=== PATIENT | female | born 1950 | race Hispanic/Latino ===

== ENCOUNTER 2018-11-08 12:44 | Inpatient (IN) | payer MEDICARE, OTHER ==
[~2018-11-08] VITALS: Ht 170.2 cm; Wt 72.6 kg
--- OUTSIDE RECORDS SUMMARY | 2018-11-08 12:48 | XMS REPORT ---
[facility] Address Unknown Phone Unavailable Care Team Providers Care Coiler Name Role Phone Unavailable Unavailable Payers Payer Name Policy Type Policy Number Effective Date Expiration Date Problems This patient has no known problems. Allergies, Adverse Reactions, Alerts Allergy Name Allergy Type Status Severity Reaction(s) Onset Date Inactive Date Treating Clinician Comments No Known Allergies DA Active U 2018-04-25 00:00:00 Medications This patient has no known medications. Results Test Description Test Time Test Comments Text Results Atomic Results Result Comments GLUBED 2018-05-13 17:09:00 GLUBED (test code=GLUBED) 101 mg/dL 74-106 Performed by certified plastics production machine operator at [facility] [id number] 12:19:00* Test Item Value Reference Range Comments GLUBED (test code=GLUBED) 82 mg/dL 74-106 Performed by certified plastics production machine operator at [facility] [id number] 05:58:00* Test Item Value Reference Range Comments GLUBED (test code=GLUBED) 113 mg/dL 74-106 Performed by certified plastics production machine operator at [facility] [id number] 21:52:00* Test Item Value Reference Range Comments GLUBED (test code=GLUBED) 156 mg/dL 74-106 Performed by certified plastics production machine operator at [facility] [id number] 17:20:00* Test Item Value Reference Range Comments GLUBED (test code=GLUBED) 159 mg/dL 74-106 Performed by certified plastics production machine operator at [facility] [id number] 11:54:00* Test Item Value Reference Range Comments GLUBED (test code=GLUBED) 98 mg/dL 74-106 Performed by certified plastics production machine operator at [facility] BASIC METABOLIC [id number] 08:32:00* Test Item Value Reference Range Comments SODIUM (test code=NA) 141 mmol/L 136-145 POTASSIUM (test code=K) 3.8 mmol/L 3.5-5.1 CHLORIDE (test code=CL) 102.0 mmol/L 98-107 CARBON DIOXIDE (test code=CO2) 34.0 mmol/L 21-32 ANION GAP (test code=GAP) 8.8 10-20 GLUCOSE (test code=GLU) 69 mg/dL 74-106 BLOOD UREA NITROGEN (test code=BUN) 11 mg/dL 7-18 GLOMERULAR FILTRATION RATE (test code=GFR) 16 mL/min >=60 Estimated GFR by using Modified MDRD formula.Chronic kidney disease is defined as either kidney damageor GFR <60 mL/min/1.73 m2 for >3 months. CREATININE (test code=CREAT) 3.00 mg/dL 0.55-1.02 Note change in reference range due to change in reagent. BUN/CREATININE RATIO (test code=BUN/CREA) 3.6 10-20 CALCIUM (test code=CA) 7.3 mg/dL 8.5-10.1 CBC W/AUTO [id number] 08:06:00* Test Item Value Reference Range Comments WHITE BLOOD CELL (test code=WBC) 5.9 K/mm3 4.5-12.5 RED BLOOD CELL (test code=RBC) 2.92 mill/mm3 3.7-5.2 HEMOGLOBIN (test code=HGB) 9.1 gram/dL 11.5-15.5 HEMATOCRIT (test code=HCT) 30.3 % 36.0-46.0 MEAN CELL VOLUME (test code=MCV) 103.8 fL 80-98 MEAN CELL HGB (test code=MCH) 31.2 picogram 27.0-33.0 MEAN CELL HGB CONCETRATION (test code=MCHC) 30.0 gram/dL 33.0-36.0 RED CELL DISTRIBUTION WIDTH (test code=RDW) 18.0 % 11.6-16.2 RED CELL DISTRIBUTION WIDTH SD (test code=RDW-SD) 66.1 fL 37.0-51.0 PLATELET COUNT (test code=PLT) 174 K/mm3 150-450 MEAN PLATELET VOLUME (test code=MPV) 11.5 fL 6.7-11.0 NEUTROPHIL % (test code=NT%) 67.3 % 39.0-69.0 IMMATURE GRANULOCYTE % (test code=IG%) 0.5 % 0.0-5.0 LYMPHOCYTE % (test code=LY%) 17.4 % 25.0-55.0 MONOCYTE % (test code=MO%) 11.1 % 0.0-10.0 EOSINOPHIL % (test code=EO%) 3.0 % 0.0-5.0 BASOPHIL % (test code=BA%) 0.7 % 0.0-1.0 NUCLEATED RBC % (test code=NRBC%) 0.0 % 0-0 NEUTROPHIL # (test code=NT#) 3.98 K/mm3 1.8-7.7 IMMATURE GRANULOCYTE # (test code=IG#) 0.03 x10 3/uL 0-0.03 LYMPHOCYTE # (test code=LY#) 1.03 K/mm3 1.0-5.0 MONOCYTE # (test code=MO#) 0.66 K/mm3 0-0.8 EOSINOPHIL # (test code=EO#) 0.18 K/mm3 0.0-0.5 BASOPHIL # (test code=BA#) 0.04 K/mm3 0.0-0.2 NUCLEATED RBC # (test code=NRBC#) 0.00 K/mm3 0.0-0.1 [id number] 06:44:00* Test Item Value Reference Range Comments GLUBED (test code=GLUBED) 69 mg/dL 74-106 Performed by certified plastics production machine operator at [facility] [id number] 21:18:00* Test Item Value Reference Range Comments GLUBED (test code=GLUBED) 87 mg/dL 74-106 Performed by certified plastics production machine operator at [facility] [id number] 12:09:00* Test Item Value Reference Range Comments GLUBED (test code=GLUBED) 75 mg/dL 74-106 Performed by certified plastics production machine operator at [facility] CBC W/AUTO [id number] 06:47:00* Test Item Value Reference Range Comments WHITE BLOOD CELL (test code=WBC) 7.8 K/mm3 4.5-12.5 RED BLOOD CELL (test code=RBC) 2.99 mill/mm3 3.7-5.2 HEMOGLOBIN (test code=HGB) 9.0 gram/dL 11.5-15.5 HEMATOCRIT (test code=HCT) 31.4 % 36.0-46.0 MEAN CELL VOLUME (test code=MCV) 105.0 fL 80-98 MEAN CELL HGB (test code=MCH) 30.1 picogram 27.0-33.0 MEAN CELL HGB CONCETRATION (test code=MCHC) 28.7 gram/dL 33.0-36.0 RED CELL DISTRIBUTION WIDTH (test code=RDW) 18.0 % 11.6-16.2 RED CELL DISTRIBUTION WIDTH SD (test code=RDW-SD) 66.5 fL 37.0-51.0 PLATELET COUNT (test code=PLT) 194 K/mm3 150-450 MEAN PLATELET VOLUME (test code=MPV) 11.9 fL 6.7-11.0 NEUTROPHIL % (test code=NT%) 73.2 % 39.0-69.0 IMMATURE GRANULOCYTE % (test code=IG%) 0.1 % 0.0-5.0 LYMPHOCYTE % (test code=LY%) 13.2 % 25.0-55.0 MONOCYTE % (test code=MO%) 10.9 % 0.0-10.0 EOSINOPHIL % (test code=EO%) 2.2 % 0.0-5.0 BASOPHIL % (test code=BA%) 0.4 % 0.0-1.0 NUCLEATED RBC % (test code=NRBC%) 0.0 % 0-0 NEUTROPHIL # (test code=NT#) 5.74 K/mm3 1.8-7.7 IMMATURE GRANULOCYTE # (test code=IG#) 0.01 x10 3/uL 0-0.03 LYMPHOCYTE # (test code=LY#) 1.03 K/mm3 1.0-5.0 MONOCYTE # (test code=MO#) 0.85 K/mm3 0-0.8 EOSINOPHIL # (test code=EO#) 0.17 K/mm3 0.0-0.5 BASOPHIL # (test code=BA#) 0.03 K/mm3 0.0-0.2 NUCLEATED RBC # (test code=NRBC#) 0.00 K/mm3 0.0-0.1 MANUAL DIFF REQUIRED (test code=MDIFF) NO, ONLY SCAN NEEDED DIFFERENTIAL [id number] 06:47:00* Test Item Value Reference Range Comments STAIN ACCEPTABILITY (test code=STN ACCEPTABLE) STAIN ACCEPTABLE POLYCHROMASIA (test code=POLC) 1+ HYPOCHROMIA (test code=HYPO) 1+ POIKILOCYTOSIS (test code=POIK) 1+ ANISOCYTOSIS (test code=ANISO) 1+ MACROCYTOSIS (test code=MACR) 1+ SPHEROCYTES (test code=SPH) 1+ PLATELET ESTIMATE (test code=PLTEST) ADEQUATE PLATELET MORPHOLOGY (test code=PLTMORPH) NORMAL BASIC METABOLIC [id number] 06:29:00* Test Item Value Reference Range Comments SODIUM (test code=NA) 141 mmol/L 136-145 POTASSIUM (test code=K) 3.8 mmol/L 3.5-5.1 CHLORIDE (test code=CL) 103.0 mmol/L 98-107 CARBON DIOXIDE (test code=CO2) 27.0 mmol/L 21-32 ANION GAP (test code=GAP) 14.8 10-20 GLUCOSE (test code=GLU) 85 mg/dL 74-106 BLOOD UREA NITROGEN (test code=BUN) 19 mg/dL 7-18 GLOMERULAR FILTRATION RATE (test code=GFR) 12 mL/min >=60 Estimated GFR by using Modified MDRD formula.Chronic kidney disease is defined as either kidney damageor GFR <60 mL/min/1.73 m2 for >3 months. CREATININE (test code=CREAT) 3.90 mg/dL 0.55-1.02 Note change in reference range due to change in reagent. BUN/CREATININE RATIO (test code=BUN/CREA) 4.9 10-20 CALCIUM (test code=CA) 7.4 mg/dL 8.5-10.1 BASIC METABOLIC [id number] 06:24:00* Test Item Value Reference Range Comments SODIUM (test code=NA) 141 mmol/L 136-145 POTASSIUM (test code=K) 3.8 mmol/L 3.5-5.1 CHLORIDE (test code=CL) 103.0 mmol/L 98-107 CARBON DIOXIDE (test code=CO2) mmol/L 21-32 ANION GAP (test code=GAP) 10-20 GLUCOSE (test code=GLU) mg/dL 74-106 BLOOD UREA NITROGEN (test code=BUN) mg/dL 7-18 GLOMERULAR FILTRATION RATE (test code=GFR) mL/min >=60 CREATININE (test code=CREAT) mg/dL 0.55-1.02 BUN/CREATININE RATIO (test code=BUN/CREA) 10-20 CALCIUM (test code=CA) mg/dL 8.5-10.1 PROTHROMBIN [id number] 06:12:00* Test Item Value Reference Range Comments PROTHROMBIN TIME PATIENT (test code=PTP) 12.4 seconds 9.0-14.0 INTERNATIONAL NORMAL RATIO (test code=INR) 1.0 0.8-1.2 The therapeutic range for oral anticoagulant therapy formost indications is an international normalized ratio (INR)of between 2.0 and 3.0. The recommended therapeutic INRrange for various clinical situations is listed below: Clinical Situation INR range Pulmonary e mbolism treatment (2.0-3.0)Venous thrombosis treatmentVenous thrombosis prophylaxis (high risk surgery)Prevention of systemic embolism from: Acute myocardial infarction Valvular heart disease Atrial fibrillation Mechanical prosthetic heart valves (2.5-3.5) IS PATIENT ON ANTICOAGULANTS? NTHROMBOPLASTIN TIME [id number] 06:12:00* Test Item Value Reference Range Comments THROMBOPLASTIN TIME PARTIAL (test code=PTT) 27.7 seconds 25.0-36.5 IS PATIENT ON ANTICOAGULANTS? NCBC W/AUTO [id number] 06:09:00* Test Item Value Reference Range Comments WHITE BLOOD CELL (test code=WBC) 7.8 K/mm3 4.5-12.5 RED BLOOD CELL (test code=RBC) 2.99 mill/mm3 3.7-5.2 HEMOGLOBIN (test code=HGB) 9.0 gram/dL 11.5-15.5 HEMATOCRIT (test code=HCT) 31.4 % 36.0-46.0 MEAN CELL VOLUME (test code=MCV) 105.0 fL 80-98 MEAN CELL HGB (test code=MCH) 30.1 picogram 27.0-33.0 MEAN CELL HGB CONCETRATION (test code=MCHC) 28.7 gram/dL 33.0-36.0 RED CELL DISTRIBUTION WIDTH (test code=RDW) 18.0 % 11.6-16.2 RED CELL DISTRIBUTION WIDTH SD (test code=RDW-SD) 66.5 fL 37.0-51.0 PLATELET COUNT (test code=PLT) 194 K/mm3 150-450 MEAN PLATELET VOLUME (test code=MPV) 11.9 fL 6.7-11.0 NEUTROPHIL % (test code=NT%) 73.2 % 39.0-69.0 IMMATURE GRANULOCYTE % (test code=IG%) 0.1 % 0.0-5.0 LYMPHOCYTE % (test code=LY%) 13.2 % 25.0-55.0 MONOCYTE % (test code=MO%) 10.9 % 0.0-10.0 EOSINOPHIL % (test code=EO%) 2.2 % 0.0-5.0 BASOPHIL % (test code=BA%) 0.4 % 0.0-1.0 NUCLEATED RBC % (test code=NRBC%) 0.0 % 0-0 NEUTROPHIL # (test code=NT#) 5.74 K/mm3 1.8-7.7 IMMATURE GRANULOCYTE # (test code=IG#) 0.01 x10 3/uL 0-0.03 LYMPHOCYTE # (test code=LY#) 1.03 K/mm3 1.0-5.0 MONOCYTE # (test code=MO#) 0.85 K/mm3 0-0.8 EOSINOPHIL # (test code=EO#) 0.17 K/mm3 0.0-0.5 BASOPHIL # (test code=BA#) 0.03 K/mm3 0.0-0.2 NUCLEATED RBC # (test code=NRBC#) 0.00 K/mm3 0.0-0.1 MANUAL DIFF REQUIRED (test code=MDIFF) NO, ONLY SCAN NEEDED DIFFERENTIAL [id number] 06:09:00* Test Item Value Reference Range Comments STAIN ACCEPTABILITY (test code=STN ACCEPTABLE) CABOT RINGS (test code=CAB) MORPHOLOGY COMMENT (test code=MOC) PLATELET ESTIMATE (test code=PLTEST) PLATELET MORPHOLOGY (test code=PLTMORPH) CBC W/AUTO [id number] 06:09:00* Test Item Value Reference Range Comments WHITE BLOOD CELL (test code=WBC) 7.8 K/mm3 4.5-12.5 RED BLOOD CELL (test code=RBC) 2.99 mill/mm3 3.7-5.2 HEMOGLOBIN (test code=HGB) 9.0 gram/dL 11.5-15.5 HEMATOCRIT (test code=HCT) 31.4 % 36.0-46.0 MEAN CELL VOLUME (test code=MCV) 105.0 fL 80-98 MEAN CELL HGB (test code=MCH) 30.1 picogram 27.0-33.0 MEAN CELL HGB CONCETRATION (test code=MCHC) 28.7 gram/dL 33.0-36.0 RED CELL DISTRIBUTION WIDTH (test code=RDW) 18.0 % 11.6-16.2 RED CELL DISTRIBUTION WIDTH SD (test code=RDW-SD) 66.5 fL 37.0-51.0 PLATELET COUNT (test code=PLT) 194 K/mm3 150-450 MEAN PLATELET VOLUME (test code=MPV) 11.9 fL 6.7-11.0 NEUTROPHIL % (test code=NT%) 73.2 % 39.0-69.0 IMMATURE GRANULOCYTE % (test code=IG%) 0.1 % 0.0-5.0 LYMPHOCYTE % (test code=LY%) 13.2 % 25.0-55.0 MONOCYTE % (test code=MO%) 10.9 % 0.0-10.0 EOSINOPHIL % (test code=EO%) 2.2 % 0.0-5.0 BASOPHIL % (test code=BA%) 0.4 % 0.0-1.0 NUCLEATED RBC % (test code=NRBC%) 0.0 % 0-0 NEUTROPHIL # (test code=NT#) 5.74 K/mm3 1.8-7.7 IMMATURE GRANULOCYTE # (test code=IG#) 0.01 x10 3/uL 0-0.03 LYMPHOCYTE # (test code=LY#) 1.03 K/mm3 1.0-5.0 MONOCYTE # (test code=MO#) 0.85 K/mm3 0-0.8 EOSINOPHIL # (test code=EO#) 0.17 K/mm3 0.0-0.5 BASOPHIL # (test code=BA#) 0.03 K/mm3 0.0-0.2 NUCLEATED RBC # (test code=NRBC#) 0.00 K/mm3 0.0-0.1 MANUAL DIFF REQUIRED (test code=MDIFF) NO, ONLY SCAN NEEDED DIFFERENTIAL [id number] 06:09:00* Test Item Value Reference Range Comments STAIN ACCEPTABILITY (test code=STN ACCEPTABLE) CABOT RINGS (test code=CAB) MORPHOLOGY COMMENT (test code=MOC) PLATELET ESTIMATE (test code=PLTEST) PLATELET MORPHOLOGY (test code=PLTMORPH) CBC W/AUTO [id number] 06:09:00* Test Item Value Reference Range Comments WHITE BLOOD CELL (test code=WBC) 7.8 K/mm3 4.5-12.5 RED BLOOD CELL (test code=RBC) 2.99 mill/mm3 3.7-5.2 HEMOGLOBIN (test code=HGB) 9.0 gram/dL 11.5-15.5 HEMATOCRIT (test code=HCT) 31.4 % 36.0-46.0 MEAN CELL VOLUME (test code=MCV) 105.0 fL 80-98 MEAN CELL HGB (test code=MCH) 30.1 picogram 27.0-33.0 MEAN CELL HGB CONCETRATION (test code=MCHC) 28.7 gram/dL 33.0-36.0 RED CELL DISTRIBUTION WIDTH (test code=RDW) 18.0 % 11.6-16.2 RED CELL DISTRIBUTION WIDTH SD (test code=RDW-SD) 66.5 fL 37.0-51.0 PLATELET COUNT (test code=PLT) 194 K/mm3 150-450 MEAN PLATELET VOLUME (test code=MPV) 11.9 fL 6.7-11.0 NEUTROPHIL % (test code=NT%) 73.2 % 39.0-69.0 IMMATURE GRANULOCYTE % (test code=IG%) 0.1 % 0.0-5.0 LYMPHOCYTE % (test code=LY%) 13.2 % 25.0-55.0 MONOCYTE % (test code=MO%) 10.9 % 0.0-10.0 EOSINOPHIL % (test code=EO%) 2.2 % 0.0-5.0 BASOPHIL % (test code=BA%) 0.4 % 0.0-1.0 NUCLEATED RBC % (test code=NRBC%) 0.0 % 0-0 NEUTROPHIL # (test code=NT#) 5.74 K/mm3 1.8-7.7 IMMATURE GRANULOCYTE # (test code=IG#) 0.01 x10 3/uL 0-0.03 LYMPHOCYTE # (test code=LY#) 1.03 K/mm3 1.0-5.0 MONOCYTE # (test code=MO#) 0.85 K/mm3 0-0.8 EOSINOPHIL # (test code=EO#) 0.17 K/mm3 0.0-0.5 BASOPHIL # (test code=BA#) 0.03 K/mm3 0.0-0.2 NUCLEATED RBC # (test code=NRBC#) 0.00 K/mm3 0.0-0.1 MANUAL DIFF REQUIRED (test code=MDIFF) NO, ONLY SCAN NEEDED DIFFERENTIAL [id number] 06:09:00* Test Item Value Reference Range Comments STAIN ACCEPTABILITY (test code=STN ACCEPTABLE) MORPHOLOGY COMMENT (test code=MOC) PLATELET ESTIMATE (test code=PLTEST) PLATELET MORPHOLOGY (test code=PLTMORPH) CBC W/AUTO [id number] 06:09:00* Test Item Value Reference Range Comments WHITE BLOOD CELL (test code=WBC) 7.8 K/mm3 4.5-12.5 RED BLOOD CELL (test code=RBC) 2.99 mill/mm3 3.7-5.2 HEMOGLOBIN (test code=HGB) 9.0 gram/dL 11.5-15.5 HEMATOCRIT (test code=HCT) 31.4 % 36.0-46.0 MEAN CELL VOLUME (test code=MCV) 105.0 fL 80-98 MEAN CELL HGB (test code=MCH) 30.1 picogram 27.0-33.0 MEAN CELL HGB CONCETRATION (test code=MCHC) 28.7 gram/dL 33.0-36.0 RED CELL DISTRIBUTION WIDTH (test code=RDW) 18.0 % 11.6-16.2 RED CELL DISTRIBUTION WIDTH SD (test code=RDW-SD) 66.5 fL 37.0-51.0 PLATELET COUNT (test code=PLT) 194 K/mm3 150-450 MEAN PLATELET VOLUME (test code=MPV) 11.9 fL 6.7-11.0 NEUTROPHIL % (test code=NT%) 73.2 % 39.0-69.0 IMMATURE GRANULOCYTE % (test code=IG%) 0.1 % 0.0-5.0 LYMPHOCYTE % (test code=LY%) 13.2 % 25.0-55.0 MONOCYTE % (test code=MO%) 10.9 % 0.0-10.0 EOSINOPHIL % (test code=EO%) 2.2 % 0.0-5.0 BASOPHIL % (test code=BA%) 0.4 % 0.0-1.0 NUCLEATED RBC % (test code=NRBC%) 0.0 % 0-0 NEUTROPHIL # (test code=NT#) 5.74 K/mm3 1.8-7.7 IMMATURE GRANULOCYTE # (test code=IG#) 0.01 x10 3/uL 0-0.03 LYMPHOCYTE # (test code=LY#) 1.03 K/mm3 1.0-5.0 MONOCYTE # (test code=MO#) 0.85 K/mm3 0-0.8 EOSINOPHIL # (test code=EO#) 0.17 K/mm3 0.0-0.5 BASOPHIL # (test code=BA#) 0.03 K/mm3 0.0-0.2 NUCLEATED RBC # (test code=NRBC#) 0.00 K/mm3 0.0-0.1 MANUAL DIFF REQUIRED (test code=MDIFF) NO, ONLY SCAN NEEDED DIFFERENTIAL [id number] 06:09:00* Test Item Value Reference Range Comments STAIN ACCEPTABILITY (test code=STN ACCEPTABLE) CABOT RINGS (test code=CAB) MORPHOLOGY COMMENT (test code=MOC) PLATELET ESTIMATE (test code=PLTEST) PLATELET MORPHOLOGY (test code=PLTMORPH) [id number] 05:59:00* Test Item Value Reference Range Comments GLUBED (test code=GLUBED) 88 mg/dL 74-106 Performed by certified plastics production machine operator at [facility] [id number] 21:22:00* Test Item Value Reference Range Comments GLUBED (test code=GLUBED) 108 mg/dL 74-106 Performed by certified plastics production machine operator at [facility] [id number] 16:43:00* Test Item Value Reference Range Comments GLUBED (test code=GLUBED) 101 mg/dL 74-106 Performed by certified plastics production machine operator at [facility] [id number] 13:24:00* Test Item Value Reference Range Comments GLUBED (test code=GLUBED) 100 mg/dL 74-106 Performed by certified plastics production machine operator at [facility] [id number] 05:39:00* Test Item Value Reference Range Comments GLUBED (test code=GLUBED) 69 mg/dL 74-106 Performed by certified plastics production machine operator at [facility] [id number] 21:23:00* Test Item Value Reference Range Comments GLUBED (test code=GLUBED) 80 mg/dL 74-106 Performed by certified plastics production machine operator at [facility] [id number] 18:18:00* Test Item Value Reference Range Comments GLUBED (test code=GLUBED) 110 mg/dL 74-106 Performed by certified plastics production machine operator at [facility] BASIC METABOLIC [id number] 08:12:00* Test Item Value Reference Range Comments SODIUM (test code=NA) 140 mmol/L 136-145 POTASSIUM (test code=K) 4.3 mmol/L 3.5-5.1 CHLORIDE (test code=CL) 106.0 mmol/L 98-107 CARBON DIOXIDE (test code=CO2) 26.0 mmol/L 21-32 ANION GAP (test code=GAP) 12.3 10-20 GLUCOSE (test code=GLU) 88 mg/dL 74-106 BLOOD UREA NITROGEN (test code=BUN) 19 mg/dL 7-18 GLOMERULAR FILTRATION RATE (test code=GFR) 13 mL/min >=60 Estimated GFR by using Modified MDRD formula.Chronic kidney disease is defined as either kidney damageor GFR <60 mL/min/1.73 m2 for >3 months. CREATININE (test code=CREAT) 3.60 mg/dL 0.55-1.02 Note change in reference range due to change in reagent. BUN/CREATININE RATIO (test code=BUN/CREA) 5.3 10-20 CALCIUM (test code=CA) 7.7 mg/dL 8.5-10.1 BASIC METABOLIC [id number] 08:05:00* Test Item Value Reference Range Comments SODIUM (test code=NA) 140 mmol/L 136-145 POTASSIUM (test code=K) 4.3 mmol/L 3.5-5.1 CHLORIDE (test code=CL) 106.0 mmol/L 98-107 CARBON DIOXIDE (test code=CO2) mmol/L 21-32 ANION GAP (test code=GAP) 10-20 GLUCOSE (test code=GLU) mg/dL 74-106 BLOOD UREA NITROGEN (test code=BUN) mg/dL 7-18 GLOMERULAR FILTRATION RATE (test code=GFR) mL/min >=60 CREATININE (test code=CREAT) mg/dL 0.55-1.02 BUN/CREATININE RATIO (test code=BUN/CREA) 10-20 CALCIUM (test code=CA) mg/dL 8.5-10.1 CBC W/AUTO [id number] 07:30:00* Test Item Value Reference Range Comments WHITE BLOOD CELL (test code=WBC) 7.6 K/mm3 4.5-12.5 RED BLOOD CELL (test code=RBC) 2.78 mill/mm3 3.7-5.2 HEMOGLOBIN (test code=HGB) 8.7 gram/dL 11.5-15.5 HEMATOCRIT (test code=HCT) 29.3 % 36.0-46.0 MEAN CELL VOLUME (test code=MCV) 105.4 fL 80-98 MEAN CELL HGB (test code=MCH) 31.3 picogram 27.0-33.0 MEAN CELL HGB CONCETRATION (test code=MCHC) 29.7 gram/dL 33.0-36.0 RED CELL DISTRIBUTION WIDTH (test code=RDW) 17.8 % 11.6-16.2 RED CELL DISTRIBUTION WIDTH SD (test code=RDW-SD) 63.7 fL 37.0-51.0 PLATELET COUNT (test code=PLT) 164 K/mm3 150-450 MEAN PLATELET VOLUME (test code=MPV) 11.9 fL 6.7-11.0 NEUTROPHIL % (test code=NT%) 75.8 % 39.0-69.0 IMMATURE GRANULOCYTE % (test code=IG%) 0.4 % 0.0-5.0 LYMPHOCYTE % (test code=LY%) 11.8 % 25.0-55.0 MONOCYTE % (test code=MO%) 9.7 % 0.0-10.0 EOSINOPHIL % (test code=EO%) 1.8 % 0.0-5.0 BASOPHIL % (test code=BA%) 0.5 % 0.0-1.0 NUCLEATED RBC % (test code=NRBC%) 0.0 % 0-0 NEUTROPHIL # (test code=NT#) 5.78 K/mm3 1.8-7.7 IMMATURE GRANULOCYTE # (test code=IG#) 0.03 x10 3/uL 0-0.03 LYMPHOCYTE # (test code=LY#) 0.90 K/mm3 1.0-5.0 MONOCYTE # (test code=MO#) 0.74 K/mm3 0-0.8 EOSINOPHIL # (test code=EO#) 0.14 K/mm3 0.0-0.5 BASOPHIL # (test code=BA#) 0.04 K/mm3 0.0-0.2 NUCLEATED RBC # (test code=NRBC#) 0.00 K/mm3 0.0-0.1 MANUAL DIFF REQUIRED (test code=MDIFF) NO, ONLY SCAN NEEDED Previously reported result: NO Edited by: CRISTOPHER on 19:0718 DIFFERENTIAL [id number] 07:30:00* Test Item Value Reference Range Comments STAIN ACCEPTABILITY (test code=STN ACCEPTABLE) STAIN ACCEPTABLE POLYCHROMASIA (test code=POLC) 1+ POIKILOCYTOSIS (test code=POIK) 1+ ANISOCYTOSIS (test code=ANISO) 1+ MACROCYTOSIS (test code=MACR) 1+ SCHISTOCYTES (test code=JUAN MIGUEL) 1+ PLATELET ESTIMATE (test code=PLTEST) ADEQUATE PLATELET MORPHOLOGY (test code=PLTMORPH) NORMAL CBC W/AUTO [id number] 07:18:00* Test Item Value Reference Range Comments WHITE BLOOD CELL (test code=WBC) 7.6 K/mm3 4.5-12.5 RED BLOOD CELL (test code=RBC) 2.78 mill/mm3 3.7-5.2 HEMOGLOBIN (test code=HGB) 8.7 gram/dL 11.5-15.5 HEMATOCRIT (test code=HCT) 29.3 % 36.0-46.0 MEAN CELL VOLUME (test code=MCV) 105.4 fL 80-98 MEAN CELL HGB (test code=MCH) 31.3 picogram 27.0-33.0 MEAN CELL HGB CONCETRATION (test code=MCHC) 29.7 gram/dL 33.0-36.0 RED CELL DISTRIBUTION WIDTH (test code=RDW) 17.8 % 11.6-16.2 RED CELL DISTRIBUTION WIDTH SD (test code=RDW-SD) 63.7 fL 37.0-51.0 PLATELET COUNT (test code=PLT) 164 K/mm3 150-450 MEAN PLATELET VOLUME (test code=MPV) 11.9 fL 6.7-11.0 NEUTROPHIL % (test code=NT%) 75.8 % 39.0-69.0 IMMATURE GRANULOCYTE % (test code=IG%) 0.4 % 0.0-5.0 LYMPHOCYTE % (test code=LY%) 11.8 % 25.0-55.0 MONOCYTE % (test code=MO%) 9.7 % 0.0-10.0 EOSINOPHIL % (test code=EO%) 1.8 % 0.0-5.0 BASOPHIL % (test code=BA%) 0.5 % 0.0-1.0 NUCLEATED RBC % (test code=NRBC%) 0.0 % 0-0 NEUTROPHIL # (test code=NT#) 5.78 K/mm3 1.8-7.7 IMMATURE GRANULOCYTE # (test code=IG#) 0.03 x10 3/uL 0-0.03 LYMPHOCYTE # (test code=LY#) 0.90 K/mm3 1.0-5.0 MONOCYTE # (test code=MO#) 0.74 K/mm3 0-0.8 EOSINOPHIL # (test code=EO#) 0.14 K/mm3 0.0-0.5 BASOPHIL # (test code=BA#) 0.04 K/mm3 0.0-0.2 NUCLEATED RBC # (test code=NRBC#) 0.00 K/mm3 0.0-0.1 MANUAL DIFF REQUIRED (test code=MDIFF) NO, ONLY SCAN NEEDED Previously reported result: NO Edited by: [email or web address] on 05/09/18:0718 DIFFERENTIAL [id number] 07:18:00* Test Item Value Reference Range Comments STAIN ACCEPTABILITY (test code=STN ACCEPTABLE) CABOT RINGS (test code=CAB) MORPHOLOGY COMMENT (test code=MOC) PLATELET ESTIMATE (test code=PLTEST) PLATELET MORPHOLOGY (test code=PLTMORPH) CBC W/AUTO [id number] 07:18:00* Test Item Value Reference Range Comments WHITE BLOOD CELL (test code=WBC) 7.6 K/mm3 4.5-12.5 RED BLOOD CELL (test code=RBC) 2.78 mill/mm3 3.7-5.2 HEMOGLOBIN (test code=HGB) 8.7 gram/dL 11.5-15.5 HEMATOCRIT (test code=HCT) 29.3 % 36.0-46.0 MEAN CELL VOLUME (test code=MCV) 105.4 fL 80-98 MEAN CELL HGB (test code=MCH) 31.3 picogram 27.0-33.0 MEAN CELL HGB CONCETRATION (test code=MCHC) 29.7 gram/dL 33.0-36.0 RED CELL DISTRIBUTION WIDTH (test code=RDW) 17.8 % 11.6-16.2 RED CELL DISTRIBUTION WIDTH SD (test code=RDW-SD) 63.7 fL 37.0-51.0 PLATELET COUNT (test code=PLT) 164 K/mm3 150-450 MEAN PLATELET VOLUME (test code=MPV) 11.9 fL 6.7-11.0 NEUTROPHIL % (test code=NT%) 75.8 % 39.0-69.0 IMMATURE GRANULOCYTE % (test code=IG%) 0.4 % 0.0-5.0 LYMPHOCYTE % (test code=LY%) 11.8 % 25.0-55.0 MONOCYTE % (test code=MO%) 9.7 % 0.0-10.0 EOSINOPHIL % (test code=EO%) 1.8 % 0.0-5.0 BASOPHIL % (test code=BA%) 0.5 % 0.0-1.0 NUCLEATED RBC % (test code=NRBC%) 0.0 % 0-0 NEUTROPHIL # (test code=NT#) 5.78 K/mm3 1.8-7.7 IMMATURE GRANULOCYTE # (test code=IG#) 0.03 x10 3/uL 0-0.03 LYMPHOCYTE # (test code=LY#) 0.90 K/mm3 1.0-5.0 MONOCYTE # (test code=MO#) 0.74 K/mm3 0-0.8 EOSINOPHIL # (test code=EO#) 0.14 K/mm3 0.0-0.5 BASOPHIL # (test code=BA#) 0.04 K/mm3 0.0-0.2 NUCLEATED RBC # (test code=NRBC#) 0.00 K/mm3 0.0-0.1 MANUAL DIFF REQUIRED (test code=MDIFF) NO, ONLY SCAN NEEDED Previously reported result: NO Edited by: CRISTOPHER on 05/09/18:0718 DIFFERENTIAL [id number] 07:18:00* Test Item Value Reference Range Comments STAIN ACCEPTABILITY (test code=STN ACCEPTABLE) CABOT RINGS (test code=CAB) MORPHOLOGY COMMENT (test code=MOC) PLATELET ESTIMATE (test code=PLTEST) PLATELET MORPHOLOGY (test code=PLTMORPH) CBC W/AUTO [id number] 07:18:00* Test Item Value Reference Range Comments WHITE BLOOD CELL (test code=WBC) 7.6 K/mm3 4.5-12.5 RED BLOOD CELL (test code=RBC) 2.78 mill/mm3 3.7-5.2 HEMOGLOBIN (test code=HGB) 8.7 gram/dL 11.5-15.5 HEMATOCRIT (test code=HCT) 29.3 % 36.0-46.0 MEAN CELL VOLUME (test code=MCV) 105.4 fL 80-98 MEAN CELL HGB (test code=MCH) 31.3 picogram 27.0-33.0 MEAN CELL HGB CONCETRATION (test code=MCHC) 29.7 gram/dL 33.0-36.0 RED CELL DISTRIBUTION WIDTH (test code=RDW) 17.8 % 11.6-16.2 RED CELL DISTRIBUTION WIDTH SD (test code=RDW-SD) 63.7 fL 37.0-51.0 PLATELET COUNT (test code=PLT) 164 K/mm3 150-450 MEAN PLATELET VOLUME (test code=MPV) 11.9 fL 6.7-11.0 NEUTROPHIL % (test code=NT%) 75.8 % 39.0-69.0 IMMATURE GRANULOCYTE % (test code=IG%) 0.4 % 0.0-5.0 LYMPHOCYTE % (test code=LY%) 11.8 % 25.0-55.0 MONOCYTE % (test code=MO%) 9.7 % 0.0-10.0 EOSINOPHIL % (test code=EO%) 1.8 % 0.0-5.0 BASOPHIL % (test code=BA%) 0.5 % 0.0-1.0 NUCLEATED RBC % (test code=NRBC%) 0.0 % 0-0 NEUTROPHIL # (test code=NT#) 5.78 K/mm3 1.8-7.7 IMMATURE GRANULOCYTE # (test code=IG#) 0.03 x10 3/uL 0-0.03 LYMPHOCYTE # (test code=LY#) 0.90 K/mm3 1.0-5.0 MONOCYTE # (test code=MO#) 0.74 K/mm3 0-0.8 EOSINOPHIL # (test code=EO#) 0.14 K/mm3 0.0-0.5 BASOPHIL # (test code=BA#) 0.04 K/mm3 0.0-0.2 NUCLEATED RBC # (test code=NRBC#) 0.00 K/mm3 0.0-0.1 MANUAL DIFF REQUIRED (test code=MDIFF) NO, ONLY SCAN NEEDED Previously reported result: NO Edited by: CRISTOPHER on 05/09/18:0718 DIFFERENTIAL [id number] 07:18:00* Test Item Value Reference Range Comments STAIN ACCEPTABILITY (test code=STN ACCEPTABLE) MORPHOLOGY COMMENT (test code=MOC) PLATELET ESTIMATE (test code=PLTEST) PLATELET MORPHOLOGY (test code=PLTMORPH) CBC W/AUTO [id number] 07:18:00* Test Item Value Reference Range Comments WHITE BLOOD CELL (test code=WBC) 7.6 K/mm3 4.5-12.5 RED BLOOD CELL (test code=RBC) 2.78 mill/mm3 3.7-5.2 HEMOGLOBIN (test code=HGB) 8.7 gram/dL 11.5-15.5 HEMATOCRIT (test code=HCT) 29.3 % 36.0-46.0 MEAN CELL VOLUME (test code=MCV) 105.4 fL 80-98 MEAN CELL HGB (test code=MCH) 31.3 picogram 27.0-33.0 MEAN CELL HGB CONCETRATION (test code=MCHC) 29.7 gram/dL 33.0-36.0 RED CELL DISTRIBUTION WIDTH (test code=RDW) 17.8 % 11.6-16.2 RED CELL DISTRIBUTION WIDTH SD (test code=RDW-SD) 63.7 fL 37.0-51.0 PLATELET COUNT (test code=PLT) 164 K/mm3 150-450 MEAN PLATELET VOLUME (test code=MPV) 11.9 fL 6.7-11.0 NEUTROPHIL % (test code=NT%) 75.8 % 39.0-69.0 IMMATURE GRANULOCYTE % (test code=IG%) 0.4 % 0.0-5.0 LYMPHOCYTE % (test code=LY%) 11.8 % 25.0-55.0 MONOCYTE % (test code=MO%) 9.7 % 0.0-10.0 EOSINOPHIL % (test code=EO%) 1.8 % 0.0-5.0 BASOPHIL % (test code=BA%) 0.5 % 0.0-1.0 NUCLEATED RBC % (test code=NRBC%) 0.0 % 0-0 NEUTROPHIL # (test code=NT#) 5.78 K/mm3 1.8-7.7 IMMATURE GRANULOCYTE # (test code=IG#) 0.03 x10 3/uL 0-0.03 LYMPHOCYTE # (test code=LY#) 0.90 K/mm3 1.0-5.0 MONOCYTE # (test code=MO#) 0.74 K/mm3 0-0.8 EOSINOPHIL # (test code=EO#) 0.14 K/mm3 0.0-0.5 BASOPHIL # (test code=BA#) 0.04 K/mm3 0.0-0.2 NUCLEATED RBC # (test code=NRBC#) 0.00 K/mm3 0.0-0.1 MANUAL DIFF REQUIRED (test code=MDIFF) NO, ONLY SCAN NEEDED Previously reported result: NO Edited by: CRISTOPHER on 05/09/18:0718 DIFFERENTIAL [id number] 07:18:00* Test Item Value Reference Range Comments STAIN ACCEPTABILITY (test code=STN ACCEPTABLE) CABOT RINGS (test code=CAB) MORPHOLOGY COMMENT (test code=MOC) PLATELET ESTIMATE (test code=PLTEST) PLATELET MORPHOLOGY (test code=PLTMORPH) CBC W/AUTO [id number] 07:15:00* Test Item Value Reference Range Comments WHITE BLOOD CELL (test code=WBC) 7.6 K/mm3 4.5-12.5 RED BLOOD CELL (test code=RBC) 2.78 mill/mm3 3.7-5.2 HEMOGLOBIN (test code=HGB) 8.7 gram/dL 11.5-15.5 HEMATOCRIT (test code=HCT) 29.3 % 36.0-46.0 MEAN CELL VOLUME (test code=MCV) 105.4 fL 80-98 MEAN CELL HGB (test code=MCH) 31.3 picogram 27.0-33.0 MEAN CELL HGB CONCETRATION (test code=MCHC) 29.7 gram/dL 33.0-36.0 RED CELL DISTRIBUTION WIDTH (test code=RDW) 17.8 % 11.6-16.2 RED CELL DISTRIBUTION WIDTH SD (test code=RDW-SD) 63.7 fL 37.0-51.0 PLATELET COUNT (test code=PLT) 164 K/mm3 150-450 MEAN PLATELET VOLUME (test code=MPV) 11.9 fL 6.7-11.0 NEUTROPHIL % (test code=NT%) 75.8 % 39.0-69.0 IMMATURE GRANULOCYTE % (test code=IG%) 0.4 % 0.0-5.0 LYMPHOCYTE % (test code=LY%) 11.8 % 25.0-55.0 MONOCYTE % (test code=MO%) 9.7 % 0.0-10.0 EOSINOPHIL % (test code=EO%) 1.8 % 0.0-5.0 BASOPHIL % (test code=BA%) 0.5 % 0.0-1.0 NUCLEATED RBC % (test code=NRBC%) 0.0 % 0-0 NEUTROPHIL # (test code=NT#) 5.78 K/mm3 1.8-7.7 IMMATURE GRANULOCYTE # (test code=IG#) 0.03 x10 3/uL 0-0.03 LYMPHOCYTE # (test code=LY#) 0.90 K/mm3 1.0-5.0 MONOCYTE # (test code=MO#) 0.74 K/mm3 0-0.8 EOSINOPHIL # (test code=EO#) 0.14 K/mm3 0.0-0.5 BASOPHIL # (test code=BA#) 0.04 K/mm3 0.0-0.2 NUCLEATED RBC # (test code=NRBC#) 0.00 K/mm3 0.0-0.1 MANUAL DIFF REQUIRED (test code=MDIFF) NO [id number] 06:20:00* Test Item Value Reference Range Comments GLUBED (test code=GLUBED) 85 mg/dL 74-106 Performed by certified plastics production machine operator at [facility] [id number] 20:43:00* Test Item Value Reference Range Comments GLUBED (test code=GLUBED) 109 mg/dL 74-106 Performed by certified plastics production machine operator at [facility] [id number] 16:52:00* Test Item Value Reference Range Comments GLUBED (test code=GLUBED) 113 mg/dL 74-106 Performed by certified plastics production machine operator at [facility] [id number] 13:19:00* Test Item Value Reference Range Comments GLUBED (test code=GLUBED) 115 mg/dL 74-106 Performed by certified plastics production machine operator at [facility] AB HEPATITIS B [id number] 11:23:00* Test Item Value Reference Range Comments AB HEPATITIS B SURFACE (test code=HBSAB) Non Reactive () Non Reactive: Inconsistent with immunity, less than 10 mIU/mL Reactive: Consistent with immunity, greater than 9.9 mIU/mL HEPATITIS B CORE ANTIBODY,[id number] 11:23:00* Test Item Value Reference Range Comments HEPATITIS B CORE ANTIBODY,IGM (test code=HBCMAB) NEGATIVE AB HEPATITIS B [id number] 11:23:00* Test Item Value Reference Range Comments AB HEPATITIS B SURFACE (test code=HBSAB) Non Reactive () Non Reactive: Inconsistent with immunity, less than 10 mIU/mL Reactive: Consistent with immunity, greater than 9.9 mIU/mL HEPATITIS B CORE ANTIBODY,[id number] 11:23:00* Test Item Value Reference Range Comments HEPATITIS B CORE ANTIBODY,IGM (test code=HBCMAB) Negative Negative Performed At: [facility] [address] [place], [place] [id number] Kyle L MD Ph:[phone] CBC W/AUTO [id number] 08:27:00* Test Item Value Reference Range Comments WHITE BLOOD CELL (test code=WBC) 8.7 K/mm3 4.5-12.5 RED BLOOD CELL (test code=RBC) 2.80 mill/mm3 3.7-5.2 HEMOGLOBIN (test code=HGB) 8.6 gram/dL 11.5-15.5 HEMATOCRIT (test code=HCT) 30.2 % 36.0-46.0 MEAN CELL VOLUME (test code=MCV) 107.9 fL 80-98 MEAN CELL HGB (test code=MCH) 30.7 picogram 27.0-33.0 MEAN CELL HGB CONCETRATION (test code=MCHC) 28.5 gram/dL 33.0-36.0 RED CELL DISTRIBUTION WIDTH (test code=RDW) 17.6 % 11.6-16.2 RED CELL DISTRIBUTION WIDTH SD (test code=RDW-SD) 64.9 fL 37.0-51.0 PLATELET COUNT (test code=PLT) 148 K/mm3 150-450 MEAN PLATELET VOLUME (test code=MPV) 12.3 fL 6.7-11.0 NEUTROPHIL % (test code=NT%) 75.3 % 39.0-69.0 IMMATURE GRANULOCYTE % (test code=IG%) 0.5 % 0.0-5.0 LYMPHOCYTE % (test code=LY%) 13.5 % 25.0-55.0 MONOCYTE % (test code=MO%) 8.8 % 0.0-10.0 EOSINOPHIL % (test code=EO%) 1.6 % 0.0-5.0 BASOPHIL % (test code=BA%) 0.3 % 0.0-1.0 NUCLEATED RBC % (test code=NRBC%) 0.0 % 0-0 NEUTROPHIL # (test code=NT#) 6.54 K/mm3 1.8-7.7 IMMATURE GRANULOCYTE # (test code=IG#) 0.04 x10 3/uL 0-0.03 LYMPHOCYTE # (test code=LY#) 1.17 K/mm3 1.0-5.0 MONOCYTE # (test code=MO#) 0.76 K/mm3 0-0.8 EOSINOPHIL # (test code=EO#) 0.14 K/mm3 0.0-0.5 BASOPHIL # (test code=BA#) 0.03 K/mm3 0.0-0.2 NUCLEATED RBC # (test code=NRBC#) 0.00 K/mm3 0.0-0.1 MANUAL DIFF REQUIRED (test code=MDIFF) NO, ONLY SCAN NEEDED DIFFERENTIAL [id number] 08:27:00* Test Item Value Reference Range Comments STAIN ACCEPTABILITY (test code=STN ACCEPTABLE) STAIN ACCEPTABLE POIKILOCYTOSIS (test code=POIK) 1+ ANISOCYTOSIS (test code=ANISO) 1+ MACROCYTOSIS (test code=MACR) 1+ ELLIPTOCYTES (test code=ELL) 1+ CRENATED CELLS (test code=CREN) 1+ PLATELET ESTIMATE (test code=PLTEST) SLIGHTLY DECREASED PLATELET MORPHOLOGY (test code=PLTMORPH) SIZE VARIABLE HEPATITIS B CORE ANTIBODY,[id number] 07:27:00* Test Item Value Reference Range Comments HEPATITIS B CORE ANTIBODY,TOT (test code=HBCAB) Negative Negative Performed At: [facility] [address] [id number] Jevon Gomez MD Ph:[phone] CBC W/AUTO [id number] 06:28:00* Test Item Value Reference Range Comments WHITE BLOOD CELL (test code=WBC) 8.7 K/mm3 4.5-12.5 RED BLOOD CELL (test code=RBC) 2.80 mill/mm3 3.7-5.2 HEMOGLOBIN (test code=HGB) 8.6 gram/dL 11.5-15.5 HEMATOCRIT (test code=HCT) 30.2 % 36.0-46.0 MEAN CELL VOLUME (test code=MCV) 107.9 fL 80-98 MEAN CELL HGB (test code=MCH) 30.7 picogram 27.0-33.0 MEAN CELL HGB CONCETRATION (test code=MCHC) 28.5 gram/dL 33.0-36.0 RED CELL DISTRIBUTION WIDTH (test code=RDW) 17.6 % 11.6-16.2 RED CELL DISTRIBUTION WIDTH SD (test code=RDW-SD) 64.9 fL 37.0-51.0 PLATELET COUNT (test code=PLT) 148 K/mm3 150-450 MEAN PLATELET VOLUME (test code=MPV) 12.3 fL 6.7-11.0 NEUTROPHIL % (test code=NT%) 75.3 % 39.0-69.0 IMMATURE GRANULOCYTE % (test code=IG%) 0.5 % 0.0-5.0 LYMPHOCYTE % (test code=LY%) 13.5 % 25.0-55.0 MONOCYTE % (test code=MO%) 8.8 % 0.0-10.0 EOSINOPHIL % (test code=EO%) 1.6 % 0.0-5.0 BASOPHIL % (test code=BA%) 0.3 % 0.0-1.0 NUCLEATED RBC % (test code=NRBC%) 0.0 % 0-0 NEUTROPHIL # (test code=NT#) 6.54 K/mm3 1.8-7.7 IMMATURE GRANULOCYTE # (test code=IG#) 0.04 x10 3/uL 0-0.03 LYMPHOCYTE # (test code=LY#) 1.17 K/mm3 1.0-5.0 MONOCYTE # (test code=MO#) 0.76 K/mm3 0-0.8 EOSINOPHIL # (test code=EO#) 0.14 K/mm3 0.0-0.5 BASOPHIL # (test code=BA#) 0.03 K/mm3 0.0-0.2 NUCLEATED RBC # (test code=NRBC#) 0.00 K/mm3 0.0-0.1 MANUAL DIFF REQUIRED (test code=MDIFF) NO, ONLY SCAN NEEDED DIFFERENTIAL [id number] 06:28:00* Test Item Value Reference Range Comments STAIN ACCEPTABILITY (test code=STN ACCEPTABLE) CABOT RINGS (test code=CAB) MORPHOLOGY COMMENT (test code=MOC) PLATELET ESTIMATE (test code=PLTEST) PLATELET MORPHOLOGY (test code=PLTMORPH) CBC W/AUTO [id number] 06:28:00* Test Item Value Reference Range Comments WHITE BLOOD CELL (test code=WBC) 8.7 K/mm3 4.5-12.5 RED BLOOD CELL (test code=RBC) 2.80 mill/mm3 3.7-5.2 HEMOGLOBIN (test code=HGB) 8.6 gram/dL 11.5-15.5 HEMATOCRIT (test code=HCT) 30.2 % 36.0-46.0 MEAN CELL VOLUME (test code=MCV) 107.9 fL 80-98 MEAN CELL HGB (test code=MCH) 30.7 picogram 27.0-33.0 MEAN CELL HGB CONCETRATION (test code=MCHC) 28.5 gram/dL 33.0-36.0 RED CELL DISTRIBUTION WIDTH (test code=RDW) 17.6 % 11.6-16.2 RED CELL DISTRIBUTION WIDTH SD (test code=RDW-SD) 64.9 fL 37.0-51.0 PLATELET COUNT (test code=PLT) 148 K/mm3 150-450 MEAN PLATELET VOLUME (test code=MPV) 12.3 fL 6.7-11.0 NEUTROPHIL % (test code=NT%) 75.3 % 39.0-69.0 IMMATURE GRANULOCYTE % (test code=IG%) 0.5 % 0.0-5.0 LYMPHOCYTE % (test code=LY%) 13.5 % 25.0-55.0 MONOCYTE % (test code=MO%) 8.8 % 0.0-10.0 EOSINOPHIL % (test code=EO%) 1.6 % 0.0-5.0 BASOPHIL % (test code=BA%) 0.3 % 0.0-1.0 NUCLEATED RBC % (test code=NRBC%) 0.0 % 0-0 NEUTROPHIL # (test code=NT#) 6.54 K/mm3 1.8-7.7 IMMATURE GRANULOCYTE # (test code=IG#) 0.04 x10 3/uL 0-0.03 LYMPHOCYTE # (test code=LY#) 1.17 K/mm3 1.0-5.0 MONOCYTE # (test code=MO#) 0.76 K/mm3 0-0.8 EOSINOPHIL # (test code=EO#) 0.14 K/mm3 0.0-0.5 BASOPHIL # (test code=BA#) 0.03 K/mm3 0.0-0.2 NUCLEATED RBC # (test code=NRBC#) 0.00 K/mm3 0.0-0.1 MANUAL DIFF REQUIRED (test code=MDIFF) NO, ONLY SCAN NEEDED DIFFERENTIAL [id number] 06:28:00* Test Item Value Reference Range Comments STAIN ACCEPTABILITY (test code=STN ACCEPTABLE) CABOT RINGS (test code=CAB) MORPHOLOGY COMMENT (test code=MOC) PLATELET ESTIMATE (test code=PLTEST) PLATELET MORPHOLOGY (test code=PLTMORPH) CBC W/AUTO [id number] 06:28:00* Test Item Value Reference Range Comments WHITE BLOOD CELL (test code=WBC) 8.7 K/mm3 4.5-12.5 RED BLOOD CELL (test code=RBC) 2.80 mill/mm3 3.7-5.2 HEMOGLOBIN (test code=HGB) 8.6 gram/dL 11.5-15.5 HEMATOCRIT (test code=HCT) 30.2 % 36.0-46.0 MEAN CELL VOLUME (test code=MCV) 107.9 fL 80-98 MEAN CELL HGB (test code=MCH) 30.7 picogram 27.0-33.0 MEAN CELL HGB CONCETRATION (test code=MCHC) 28.5 gram/dL 33.0-36.0 RED CELL DISTRIBUTION WIDTH (test code=RDW) 17.6 % 11.6-16.2 RED CELL DISTRIBUTION WIDTH SD (test code=RDW-SD) 64.9 fL 37.0-51.0 PLATELET COUNT (test code=PLT) 148 K/mm3 150-450 MEAN PLATELET VOLUME (test code=MPV) 12.3 fL 6.7-11.0 NEUTROPHIL % (test code=NT%) 75.3 % 39.0-69.0 IMMATURE GRANULOCYTE % (test code=IG%) 0.5 % 0.0-5.0 LYMPHOCYTE % (test code=LY%) 13.5 % 25.0-55.0 MONOCYTE % (test code=MO%) 8.8 % 0.0-10.0 EOSINOPHIL % (test code=EO%) 1.6 % 0.0-5.0 BASOPHIL % (test code=BA%) 0.3 % 0.0-1.0 NUCLEATED RBC % (test code=NRBC%) 0.0 % 0-0 NEUTROPHIL # (test code=NT#) 6.54 K/mm3 1.8-7.7 IMMATURE GRANULOCYTE # (test code=IG#) 0.04 x10 3/uL 0-0.03 LYMPHOCYTE # (test code=LY#) 1.17 K/mm3 1.0-5.0 MONOCYTE # (test code=MO#) 0.76 K/mm3 0-0.8 EOSINOPHIL # (test code=EO#) 0.14 K/mm3 0.0-0.5 BASOPHIL # (test code=BA#) 0.03 K/mm3 0.0-0.2 NUCLEATED RBC # (test code=NRBC#) 0.00 K/mm3 0.0-0.1 MANUAL DIFF REQUIRED (test code=MDIFF) NO, ONLY SCAN NEEDED DIFFERENTIAL [id number] 06:28:00* Test Item Value Reference Range Comments STAIN ACCEPTABILITY (test code=STN ACCEPTABLE) MORPHOLOGY COMMENT (test code=MOC) PLATELET ESTIMATE (test code=PLTEST) PLATELET MORPHOLOGY (test code=PLTMORPH) CBC W/AUTO [id number] 06:27:00* Test Item Value Reference Range Comments WHITE BLOOD CELL (test code=WBC) 8.7 K/mm3 4.5-12.5 RED BLOOD CELL (test code=RBC) 2.80 mill/mm3 3.7-5.2 HEMOGLOBIN (test code=HGB) 8.6 gram/dL 11.5-15.5 HEMATOCRIT (test code=HCT) 30.2 % 36.0-46.0 MEAN CELL VOLUME (test code=MCV) 107.9 fL 80-98 MEAN CELL HGB (test code=MCH) 30.7 picogram 27.0-33.0 MEAN CELL HGB CONCETRATION (test code=MCHC) 28.5 gram/dL 33.0-36.0 RED CELL DISTRIBUTION WIDTH (test code=RDW) 17.6 % 11.6-16.2 RED CELL DISTRIBUTION WIDTH SD (test code=RDW-SD) 64.9 fL 37.0-51.0 PLATELET COUNT (test code=PLT) 148 K/mm3 150-450 MEAN PLATELET VOLUME (test code=MPV) 12.3 fL 6.7-11.0 NEUTROPHIL % (test code=NT%) 75.3 % 39.0-69.0 IMMATURE GRANULOCYTE % (test code=IG%) 0.5 % 0.0-5.0 LYMPHOCYTE % (test code=LY%) 13.5 % 25.0-55.0 MONOCYTE % (test code=MO%) 8.8 % 0.0-10.0 EOSINOPHIL % (test code=EO%) 1.6 % 0.0-5.0 BASOPHIL % (test code=BA%) 0.3 % 0.0-1.0 NUCLEATED RBC % (test code=NRBC%) 0.0 % 0-0 NEUTROPHIL # (test code=NT#) 6.54 K/mm3 1.8-7.7 IMMATURE GRANULOCYTE # (test code=IG#) 0.04 x10 3/uL 0-0.03 LYMPHOCYTE # (test code=LY#) 1.17 K/mm3 1.0-5.0 MONOCYTE # (test code=MO#) 0.76 K/mm3 0-0.8 EOSINOPHIL # (test code=EO#) 0.14 K/mm3 0.0-0.5 BASOPHIL # (test code=BA#) 0.03 K/mm3 0.0-0.2 NUCLEATED RBC # (test code=NRBC#) 0.00 K/mm3 0.0-0.1 MANUAL DIFF REQUIRED (test code=MDIFF) NO, ONLY SCAN NEEDED DIFFERENTIAL [id number] 06:27:00* Test Item Value Reference Range Comments STAIN ACCEPTABILITY (test code=STN ACCEPTABLE) CABOT RINGS (test code=CAB) MORPHOLOGY COMMENT (test code=MOC) PLATELET ESTIMATE (test code=PLTEST) PLATELET MORPHOLOGY (test code=PLTMORPH) [id number] 06:13:00* Test Item Value Reference Range Comments GLUBED (test code=GLUBED) 103 mg/dL 74-106 Performed by certified plastics production machine operator at [facility] COMPREHENSIVE METABOLIC [id number] 05:56:00* Test Item Value Reference Range Comments SODIUM (test code=NA) 141 mmol/L 136-145 POTASSIUM (test code=K) 4.1 mmol/L 3.5-5.1 CHLORIDE (test code=CL) 105.0 mmol/L 98-107 CARBON DIOXIDE (test code=CO2) 27.0 mmol/L 21-32 ANION GAP (test code=GAP) 13.1 10-20 GLUCOSE (test code=GLU) 105 mg/dL 74-106 BLOOD UREA NITROGEN (test code=BUN) 24 mg/dL 7-18 GLOMERULAR FILTRATION RATE (test code=GFR) 11 mL/min >=60 Estimated GFR by using Modified MDRD formula.Chronic kidney disease is defined as either kidney damageor GFR <60 mL/min/1.73 m2 for >3 months. CREATININE (test code=CREAT) 4.00 mg/dL 0.55-1.02 Note change in reference range due to change in reagent. BUN/CREATININE RATIO (test code=BUN/CREA) 6.0 10-20 TOTAL PROTEIN (test code=PROT) 5.8 gram/dL 6.4-8.2 ALBUMIN (test code=ALB) 2.8 g/dL 3.4-5.0 GLOBULIN (test code=GLOB) 3.0 gram/dL 2.7-4.2 ALBUMIN/GLOBULIN RATIO (test code=A/G) 0.9 0.75-1.50 CALCIUM (test code=CA) 8.0 mg/dL 8.5-10.1 BILIRUBIN TOTAL (test code=BILT) 1.00 mg/dL 0.0-1.0 SGOT/AST (test code=AST) 14 IUnit/L 15-37 SGPT/ALT (test code=ALT) 20 IUnit/L 12-78 ALKALINE PHOSPHATASE TOTAL (test code=ALKP) 95 IUnit/L 45-117 Note change in reference range due to change in reagent. COMPREHENSIVE METABOLIC [id number] 05:46:00* Test Item Value Reference Range Comments SODIUM (test code=NA) 141 mmol/L 136-145 POTASSIUM (test code=K) 4.1 mmol/L 3.5-5.1 CHLORIDE (test code=CL) 105.0 mmol/L 98-107 CARBON DIOXIDE (test code=CO2) mmol/L 21-32 ANION GAP (test code=GAP) 10-20 GLUCOSE (test code=GLU) mg/dL 74-106 BLOOD UREA NITROGEN (test code=BUN) mg/dL 7-18 GLOMERULAR FILTRATION RATE (test code=GFR) mL/min >=60 CREATININE (test code=CREAT) mg/dL 0.55-1.02 BUN/CREATININE RATIO (test code=BUN/CREA) 10-20 TOTAL PROTEIN (test code=PROT) gram/dL 6.4-8.2 ALBUMIN (test code=ALB) g/dL 3.4-5.0 GLOBULIN (test code=GLOB) gram/dL 2.7-4.2 ALBUMIN/GLOBULIN RATIO (test code=A/G) 0.75-1.50 CALCIUM (test code=CA) mg/dL 8.5-10.1 BILIRUBIN TOTAL (test code=BILT) mg/dL 0.0-1.0 SGOT/AST (test code=AST) IUnit/L 15-37 SGPT/ALT (test code=ALT) IUnit/L 12-78 ALKALINE PHOSPHATASE TOTAL (test code=ALKP) IUnit/L 45-117 [id number] 21:18:00* Test Item Value Reference Range Comments GLUBED (test code=GLUBED) 135 mg/dL 74-106 Performed by certified plastics production machine operator at [facility] [id number] 17:38:00* Test Item Value Reference Range Comments GLUBED (test code=GLUBED) 122 mg/dL 74-106 Performed by certified plastics production machine operator at [facility] [id number] 12:50:00* Test Item Value Reference Range Comments GLUBED (test code=GLUBED) 132 mg/dL 74-106 Performed by certified plastics production machine operator at [facility] [id number] 06:31:00* Test Item Value Reference Range Comments GLUBED (test code=GLUBED) 105 mg/dL 74-106 Performed by certified plastics production machine operator at [facility] CBC W/AUTO [id number] 05:06:00* Test Item Value Reference Range Comments WHITE BLOOD CELL (test code=WBC) 9.5 K/mm3 4.5-12.5 RED BLOOD CELL (test code=RBC) 2.58 mill/mm3 3.7-5.2 HEMOGLOBIN (test code=HGB) 7.9 gram/dL 11.5-15.5 HEMATOCRIT (test code=HCT) 27.2 % 36.0-46.0 MEAN CELL VOLUME (test code=MCV) 105.4 fL 80-98 MEAN CELL HGB (test code=MCH) 30.6 picogram 27.0-33.0 MEAN CELL HGB CONCETRATION (test code=MCHC) 29.0 gram/dL 33.0-36.0 RED CELL DISTRIBUTION WIDTH (test code=RDW) 17.0 % 11.6-16.2 RED CELL DISTRIBUTION WIDTH SD (test code=RDW-SD) 60.6 fL 37.0-51.0 PLATELET COUNT (test code=PLT) 124 K/mm3 150-450 MEAN PLATELET VOLUME (test code=MPV) 12.8 fL 6.7-11.0 NEUTROPHIL % (test code=NT%) 76.4 % 39.0-69.0 IMMATURE GRANULOCYTE % (test code=IG%) 0.5 % 0.0-5.0 LYMPHOCYTE % (test code=LY%) 12.6 % 25.0-55.0 MONOCYTE % (test code=MO%) 8.6 % 0.0-10.0 EOSINOPHIL % (test code=EO%) 1.5 % 0.0-5.0 BASOPHIL % (test code=BA%) 0.4 % 0.0-1.0 NUCLEATED RBC % (test code=NRBC%) 0.0 % 0-0 NEUTROPHIL # (test code=NT#) 7.24 K/mm3 1.8-7.7 IMMATURE GRANULOCYTE # (test code=IG#) 0.05 x10 3/uL 0-0.03 LYMPHOCYTE # (test code=LY#) 1.20 K/mm3 1.0-5.0 MONOCYTE # (test code=MO#) 0.82 K/mm3 0-0.8 EOSINOPHIL # (test code=EO#) 0.14 K/mm3 0.0-0.5 BASOPHIL # (test code=BA#) 0.04 K/mm3 0.0-0.2 NUCLEATED RBC # (test code=NRBC#) 0.00 K/mm3 0.0-0.1 MANUAL DIFF REQUIRED (test code=MDIFF) NO, ONLY SCAN NEEDED DIFFERENTIAL [id number] 05:06:00* Test Item Value Reference Range Comments STAIN ACCEPTABILITY (test code=STN ACCEPTABLE) STAIN ACCEPTABLE POIKILOCYTOSIS (test code=POIK) 1+ ANISOCYTOSIS (test code=ANISO) 1+ MACROCYTOSIS (test code=MACR) 1+ PLATELET ESTIMATE (test code=PLTEST) ADEQUATE PLATELET MORPHOLOGY (test code=PLTMORPH) NORMAL BASIC METABOLIC [id number] 04:57:00* Test Item Value Reference Range Comments SODIUM (test code=NA) 144 mmol/L 136-145 POTASSIUM (test code=K) 4.1 mmol/L 3.5-5.1 CHLORIDE (test code=CL) 107.0 mmol/L 98-107 CARBON DIOXIDE (test code=CO2) 29.0 mmol/L 21-32 ANION GAP (test code=GAP) 12.1 10-20 GLUCOSE (test code=GLU) 97 mg/dL 74-106 BLOOD UREA NITROGEN (test code=BUN) 31 mg/dL 7-18 GLOMERULAR FILTRATION RATE (test code=GFR) 10 mL/min >=60 Estimated GFR by using Modified MDRD formula.Chronic kidney disease is defined as either kidney damageor GFR <60 mL/min/1.73 m2 for >3 months. CREATININE (test code=CREAT) 4.60 mg/dL 0.55-1.02 Note change in reference range due to change in reagent. BUN/CREATININE RATIO (test code=BUN/CREA) 6.7 10-20 CALCIUM (test code=CA) 6.9 mg/dL 8.5-10.1 BASIC METABOLIC [id number] 04:53:00* Test Item Value Reference Range Comments SODIUM (test code=NA) 144 mmol/L 136-145 POTASSIUM (test code=K) 4.1 mmol/L 3.5-5.1 CHLORIDE (test code=CL) 107.0 mmol/L 98-107 CARBON DIOXIDE (test code=CO2) mmol/L 21-32 ANION GAP (test code=GAP) 10-20 GLUCOSE (test code=GLU) mg/dL 74-106 BLOOD UREA NITROGEN (test code=BUN) mg/dL 7-18 GLOMERULAR FILTRATION RATE (test code=GFR) mL/min >=60 CREATININE (test code=CREAT) mg/dL 0.55-1.02 BUN/CREATININE RATIO (test code=BUN/CREA) 10-20 CALCIUM (test code=CA) mg/dL 8.5-10.1 CBC W/AUTO [id number] 04:46:00* Test Item Value Reference Range Comments WHITE BLOOD CELL (test code=WBC) 9.5 K/mm3 4.5-12.5 RED BLOOD CELL (test code=RBC) 2.58 mill/mm3 3.7-5.2 HEMOGLOBIN (test code=HGB) 7.9 gram/dL 11.5-15.5 HEMATOCRIT (test code=HCT) 27.2 % 36.0-46.0 MEAN CELL VOLUME (test code=MCV) 105.4 fL 80-98 MEAN CELL HGB (test code=MCH) 30.6 picogram 27.0-33.0 MEAN CELL HGB CONCETRATION (test code=MCHC) 29.0 gram/dL 33.0-36.0 RED CELL DISTRIBUTION WIDTH (test code=RDW) 17.0 % 11.6-16.2 RED CELL DISTRIBUTION WIDTH SD (test code=RDW-SD) 60.6 fL 37.0-51.0 PLATELET COUNT (test code=PLT) 124 K/mm3 150-450 MEAN PLATELET VOLUME (test code=MPV) 12.8 fL 6.7-11.0 NEUTROPHIL % (test code=NT%) 76.4 % 39.0-69.0 IMMATURE GRANULOCYTE % (test code=IG%) 0.5 % 0.0-5.0 LYMPHOCYTE % (test code=LY%) 12.6 % 25.0-55.0 MONOCYTE % (test code=MO%) 8.6 % 0.0-10.0 EOSINOPHIL % (test code=EO%) 1.5 % 0.0-5.0 BASOPHIL % (test code=BA%) 0.4 % 0.0-1.0 NUCLEATED RBC % (test code=NRBC%) 0.0 % 0-0 NEUTROPHIL # (test code=NT#) 7.24 K/mm3 1.8-7.7 IMMATURE GRANULOCYTE # (test code=IG#) 0.05 x10 3/uL 0-0.03 LYMPHOCYTE # (test code=LY#) 1.20 K/mm3 1.0-5.0 MONOCYTE # (test code=MO#) 0.82 K/mm3 0-0.8 EOSINOPHIL # (test code=EO#) 0.14 K/mm3 0.0-0.5 BASOPHIL # (test code=BA#) 0.04 K/mm3 0.0-0.2 NUCLEATED RBC # (test code=NRBC#) 0.00 K/mm3 0.0-0.1 MANUAL DIFF REQUIRED (test code=MDIFF) NO, ONLY SCAN NEEDED DIFFERENTIAL [id number] 04:46:00* Test Item Value Reference Range Comments STAIN ACCEPTABILITY (test code=STN ACCEPTABLE) CABOT RINGS (test code=CAB) MORPHOLOGY COMMENT (test code=MOC) PLATELET ESTIMATE (test code=PLTEST) PLATELET MORPHOLOGY (test code=PLTMORPH) CBC W/AUTO [id number] 04:46:00* Test Item Value Reference Range Comments WHITE BLOOD CELL (test code=WBC) 9.5 K/mm3 4.5-12.5 RED BLOOD CELL (test code=RBC) 2.58 mill/mm3 3.7-5.2 HEMOGLOBIN (test code=HGB) 7.9 gram/dL 11.5-15.5 HEMATOCRIT (test code=HCT) 27.2 % 36.0-46.0 MEAN CELL VOLUME (test code=MCV) 105.4 fL 80-98 MEAN CELL HGB (test code=MCH) 30.6 picogram 27.0-33.0 MEAN CELL HGB CONCETRATION (test code=MCHC) 29.0 gram/dL 33.0-36.0 RED CELL DISTRIBUTION WIDTH (test code=RDW) 17.0 % 11.6-16.2 RED CELL DISTRIBUTION WIDTH SD (test code=RDW-SD) 60.6 fL 37.0-51.0 PLATELET COUNT (test code=PLT) 124 K/mm3 150-450 MEAN PLATELET VOLUME (test code=MPV) 12.8 fL 6.7-11.0 NEUTROPHIL % (test code=NT%) 76.4 % 39.0-69.0 IMMATURE GRANULOCYTE % (test code=IG%) 0.5 % 0.0-5.0 LYMPHOCYTE % (test code=LY%) 12.6 % 25.0-55.0 MONOCYTE % (test code=MO%) 8.6 % 0.0-10.0 EOSINOPHIL % (test code=EO%) 1.5 % 0.0-5.0 BASOPHIL % (test code=BA%) 0.4 % 0.0-1.0 NUCLEATED RBC % (test code=NRBC%) 0.0 % 0-0 NEUTROPHIL # (test code=NT#) 7.24 K/mm3 1.8-7.7 IMMATURE GRANULOCYTE # (test code=IG#) 0.05 x10 3/uL 0-0.03 LYMPHOCYTE # (test code=LY#) 1.20 K/mm3 1.0-5.0 MONOCYTE # (test code=MO#) 0.82 K/mm3 0-0.8 EOSINOPHIL # (test code=EO#) 0.14 K/mm3 0.0-0.5 BASOPHIL # (test code=BA#) 0.04 K/mm3 0.0-0.2 NUCLEATED RBC # (test code=NRBC#) 0.00 K/mm3 0.0-0.1 MANUAL DIFF REQUIRED (test code=MDIFF) NO, ONLY SCAN NEEDED DIFFERENTIAL [id number] 04:46:00* Test Item Value Reference Range Comments STAIN ACCEPTABILITY (test code=STN ACCEPTABLE) MORPHOLOGY COMMENT (test code=MOC) PLATELET ESTIMATE (test code=PLTEST) PLATELET MORPHOLOGY (test code=PLTMORPH) CBC W/AUTO [id number] 04:46:00* Test Item Value Reference Range Comments WHITE BLOOD CELL (test code=WBC) 9.5 K/mm3 4.5-12.5 RED BLOOD CELL (test code=RBC) 2.58 mill/mm3 3.7-5.2 HEMOGLOBIN (test code=HGB) 7.9 gram/dL 11.5-15.5 HEMATOCRIT (test code=HCT) 27.2 % 36.0-46.0 MEAN CELL VOLUME (test code=MCV) 105.4 fL 80-98 MEAN CELL HGB (test code=MCH) 30.6 picogram 27.0-33.0 MEAN CELL HGB CONCETRATION (test code=MCHC) 29.0 gram/dL 33.0-36.0 RED CELL DISTRIBUTION WIDTH (test code=RDW) 17.0 % 11.6-16.2 RED CELL DISTRIBUTION WIDTH SD (test code=RDW-SD) 60.6 fL 37.0-51.0 PLATELET COUNT (test code=PLT) 124 K/mm3 150-450 MEAN PLATELET VOLUME (test code=MPV) 12.8 fL 6.7-11.0 NEUTROPHIL % (test code=NT%) 76.4 % 39.0-69.0 IMMATURE GRANULOCYTE % (test code=IG%) 0.5 % 0.0-5.0 LYMPHOCYTE % (test code=LY%) 12.6 % 25.0-55.0 MONOCYTE % (test code=MO%) 8.6 % 0.0-10.0 EOSINOPHIL % (test code=EO%) 1.5 % 0.0-5.0 BASOPHIL % (test code=BA%) 0.4 % 0.0-1.0 NUCLEATED RBC % (test code=NRBC%) 0.0 % 0-0 NEUTROPHIL # (test code=NT#) 7.24 K/mm3 1.8-7.7 IMMATURE GRANULOCYTE # (test code=IG#) 0.05 x10 3/uL 0-0.03 LYMPHOCYTE # (test code=LY#) 1.20 K/mm3 1.0-5.0 MONOCYTE # (test code=MO#) 0.82 K/mm3 0-0.8 EOSINOPHIL # (test code=EO#) 0.14 K/mm3 0.0-0.5 BASOPHIL # (test code=BA#) 0.04 K/mm3 0.0-0.2 NUCLEATED RBC # (test code=NRBC#) 0.00 K/mm3 0.0-0.1 MANUAL DIFF REQUIRED (test code=MDIFF) NO, ONLY SCAN NEEDED DIFFERENTIAL [id number] 04:46:00* Test Item Value Reference Range Comments STAIN ACCEPTABILITY (test code=STN ACCEPTABLE) MORPHOLOGY COMMENT (test code=MOC) PLATELET ESTIMATE (test code=PLTEST) PLATELET MORPHOLOGY (test code=PLTMORPH) CBC W/AUTO [id number] 04:46:00* Test Item Value Reference Range Comments WHITE BLOOD CELL (test code=WBC) 9.5 K/mm3 4.5-12.5 RED BLOOD CELL (test code=RBC) 2.58 mill/mm3 3.7-5.2 HEMOGLOBIN (test code=HGB) 7.9 gram/dL 11.5-15.5 HEMATOCRIT (test code=HCT) 27.2 % 36.0-46.0 MEAN CELL VOLUME (test code=MCV) 105.4 fL 80-98 MEAN CELL HGB (test code=MCH) 30.6 picogram 27.0-33.0 MEAN CELL HGB CONCETRATION (test code=MCHC) 29.0 gram/dL 33.0-36.0 RED CELL DISTRIBUTION WIDTH (test code=RDW) 17.0 % 11.6-16.2 RED CELL DISTRIBUTION WIDTH SD (test code=RDW-SD) 60.6 fL 37.0-51.0 PLATELET COUNT (test code=PLT) 124 K/mm3 150-450 MEAN PLATELET VOLUME (test code=MPV) 12.8 fL 6.7-11.0 NEUTROPHIL % (test code=NT%) 76.4 % 39.0-69.0 IMMATURE GRANULOCYTE % (test code=IG%) 0.5 % 0.0-5.0 LYMPHOCYTE % (test code=LY%) 12.6 % 25.0-55.0 MONOCYTE % (test code=MO%) 8.6 % 0.0-10.0 EOSINOPHIL % (test code=EO%) 1.5 % 0.0-5.0 BASOPHIL % (test code=BA%) 0.4 % 0.0-1.0 NUCLEATED RBC % (test code=NRBC%) 0.0 % 0-0 NEUTROPHIL # (test code=NT#) 7.24 K/mm3 1.8-7.7 IMMATURE GRANULOCYTE # (test code=IG#) 0.05 x10 3/uL 0-0.03 LYMPHOCYTE # (test code=LY#) 1.20 K/mm3 1.0-5.0 MONOCYTE # (test code=MO#) 0.82 K/mm3 0-0.8 EOSINOPHIL # (test code=EO#) 0.14 K/mm3 0.0-0.5 BASOPHIL # (test code=BA#) 0.04 K/mm3 0.0-0.2 NUCLEATED RBC # (test code=NRBC#) 0.00 K/mm3 0.0-0.1 MANUAL DIFF REQUIRED (test code=MDIFF) NO, ONLY SCAN NEEDED DIFFERENTIAL [id number] 04:46:00* Test Item Value Reference Range Comments STAIN ACCEPTABILITY (test code=STN ACCEPTABLE) CABOT RINGS (test code=CAB) MORPHOLOGY COMMENT (test code=MOC) PLATELET ESTIMATE (test code=PLTEST) PLATELET MORPHOLOGY (test code=PLTMORPH) [id number] 21:10:00* Test Item Value Reference Range Comments GLUBED (test code=GLUBED) 114 mg/dL 74-106 Performed by certified plastics production machine operator at [facility] [id number] 16:48:00* Test Item Value Reference Range Comments GLUBED (test code=GLUBED) 137 mg/dL 74-106 Performed by certified plastics production machine operator at [facility] [id number] 11:44:00* Test Item Value Reference Range Comments GLUBED (test code=GLUBED) 130 mg/dL 74-106 Performed by certified plastics production machine operator at [facility] [id number] 07:05:00* Test Item Value Reference Range Comments GLUBED (test code=GLUBED) 140 mg/dL 74-106 Performed by certified plastics production machine operator at [facility] [id number] 21:35:00* Test Item Value Reference Range Comments GLUBED (test code=GLUBED) 135 mg/dL 74-106 Performed by certified plastics production machine operator at [facility] [id number] 21:35:00* Test Item Value Reference Range Comments GLUBED (test code=GLUBED) 128 mg/dL 74-106 Performed by certified plastics production machine operator at [facility] [id number] 20:41:00* Test Item Value Reference Range Comments GLUBED (test code=GLUBED) 132 mg/dL 74-106 Performed by certified plastics production machine operator at [facility] CBC W/AUTO [id number] 12:39:00* Test Item Value Reference Range Comments WHITE BLOOD CELL (test code=WBC) 12.5 K/mm3 4.5-12.5 RED BLOOD CELL (test code=RBC) 2.67 mill/mm3 3.7-5.2 HEMOGLOBIN (test code=HGB) 8.2 gram/dL 11.5-15.5 HEMATOCRIT (test code=HCT) 27.6 % 36.0-46.0 MEAN CELL VOLUME (test code=MCV) 103.4 fL 80-98 MEAN CELL HGB (test code=MCH) 30.7 picogram 27.0-33.0 MEAN CELL HGB CONCETRATION (test code=MCHC) 29.7 gram/dL 33.0-36.0 RED CELL DISTRIBUTION WIDTH (test code=RDW) 16.2 % 11.6-16.2 RED CELL DISTRIBUTION WIDTH SD (test code=RDW-SD) 56.4 fL 37.0-51.0 PLATELET COUNT (test code=PLT) 101 K/mm3 150-450 MEAN PLATELET VOLUME (test code=MPV) 12.2 fL 6.7-11.0 NEUTROPHIL % (test code=NT%) 82.8 % 39.0-69.0 IMMATURE GRANULOCYTE % (test code=IG%) 0.6 % 0.0-5.0 LYMPHOCYTE % (test code=LY%) 6.8 % 25.0-55.0 MONOCYTE % (test code=MO%) 7.9 % 0.0-10.0 EOSINOPHIL % (test code=EO%) 1.8 % 0.0-5.0 BASOPHIL % (test code=BA%) 0.1 % 0.0-1.0 NUCLEATED RBC % (test code=NRBC%) 0.0 % 0-0 NEUTROPHIL # (test code=NT#) 10.31 K/mm3 1.8-7.7 IMMATURE GRANULOCYTE # (test code=IG#) 0.07 x10 3/uL 0-0.03 LYMPHOCYTE # (test code=LY#) 0.85 K/mm3 1.0-5.0 MONOCYTE # (test code=MO#) 0.98 K/mm3 0-0.8 EOSINOPHIL # (test code=EO#) 0.23 K/mm3 0.0-0.5 BASOPHIL # (test code=BA#) 0.01 K/mm3 0.0-0.2 NUCLEATED RBC # (test code=NRBC#) 0.00 K/mm3 0.0-0.1 MANUAL DIFF REQUIRED (test code=MDIFF) NO, ONLY SCAN NEEDED DIFFERENTIAL [id number] 12:39:00* Test Item Value Reference Range Comments STAIN ACCEPTABILITY (test code=STN ACCEPTABLE) STAIN ACCEPTABLE ANISOCYTOSIS (test code=ANISO) 1+ MACROCYTOSIS (test code=MACR) 1+ PLATELET ESTIMATE (test code=PLTEST) DECREASED PLATELET MORPHOLOGY (test code=PLTMORPH) NORMAL CBC W/AUTO [id number] 12:08:00* Test Item Value Reference Range Comments WHITE BLOOD CELL (test code=WBC) 12.5 K/mm3 4.5-12.5 RED BLOOD CELL (test code=RBC) 2.67 mill/mm3 3.7-5.2 HEMOGLOBIN (test code=HGB) 8.2 gram/dL 11.5-15.5 HEMATOCRIT (test code=HCT) 27.6 % 36.0-46.0 MEAN CELL VOLUME (test code=MCV) 103.4 fL 80-98 MEAN CELL HGB (test code=MCH) 30.7 picogram 27.0-33.0 MEAN CELL HGB CONCETRATION (test code=MCHC) 29.7 gram/dL 33.0-36.0 RED CELL DISTRIBUTION WIDTH (test code=RDW) 16.2 % 11.6-16.2 RED CELL DISTRIBUTION WIDTH SD (test code=RDW-SD) 56.4 fL 37.0-51.0 PLATELET COUNT (test code=PLT) 101 K/mm3 150-450 MEAN PLATELET VOLUME (test code=MPV) 12.2 fL 6.7-11.0 NEUTROPHIL % (test code=NT%) 82.8 % 39.0-69.0 IMMATURE GRANULOCYTE % (test code=IG%) 0.6 % 0.0-5.0 LYMPHOCYTE % (test code=LY%) 6.8 % 25.0-55.0 MONOCYTE % (test code=MO%) 7.9 % 0.0-10.0 EOSINOPHIL % (test code=EO%) 1.8 % 0.0-5.0 BASOPHIL % (test code=BA%) 0.1 % 0.0-1.0 NUCLEATED RBC % (test code=NRBC%) 0.0 % 0-0 NEUTROPHIL # (test code=NT#) 10.31 K/mm3 1.8-7.7 IMMATURE GRANULOCYTE # (test code=IG#) 0.07 x10 3/uL 0-0.03 LYMPHOCYTE # (test code=LY#) 0.85 K/mm3 1.0-5.0 MONOCYTE # (test code=MO#) 0.98 K/mm3 0-0.8 EOSINOPHIL # (test code=EO#) 0.23 K/mm3 0.0-0.5 BASOPHIL # (test code=BA#) 0.01 K/mm3 0.0-0.2 NUCLEATED RBC # (test code=NRBC#) 0.00 K/mm3 0.0-0.1 MANUAL DIFF REQUIRED (test code=MDIFF) NO, ONLY SCAN NEEDED DIFFERENTIAL [id number] 12:08:00* Test Item Value Reference Range Comments STAIN ACCEPTABILITY (test code=STN ACCEPTABLE) CABOT RINGS (test code=CAB) MORPHOLOGY COMMENT (test code=MOC) PLATELET ESTIMATE (test code=PLTEST) PLATELET MORPHOLOGY (test code=PLTMORPH) CBC W/AUTO [id number] 12:08:00* Test Item Value Reference Range Comments WHITE BLOOD CELL (test code=WBC) 12.5 K/mm3 4.5-12.5 RED BLOOD CELL (test code=RBC) 2.67 mill/mm3 3.7-5.2 HEMOGLOBIN (test code=HGB) 8.2 gram/dL 11.5-15.5 HEMATOCRIT (test code=HCT) 27.6 % 36.0-46.0 MEAN CELL VOLUME (test code=MCV) 103.4 fL 80-98 MEAN CELL HGB (test code=MCH) 30.7 picogram 27.0-33.0 MEAN CELL HGB CONCETRATION (test code=MCHC) 29.7 gram/dL 33.0-36.0 RED CELL DISTRIBUTION WIDTH (test code=RDW) 16.2 % 11.6-16.2 RED CELL DISTRIBUTION WIDTH SD (test code=RDW-SD) 56.4 fL 37.0-51.0 PLATELET COUNT (test code=PLT) 101 K/mm3 150-450 MEAN PLATELET VOLUME (test code=MPV) 12.2 fL 6.7-11.0 NEUTROPHIL % (test code=NT%) 82.8 % 39.0-69.0 IMMATURE GRANULOCYTE % (test code=IG%) 0.6 % 0.0-5.0 LYMPHOCYTE % (test code=LY%) 6.8 % 25.0-55.0 MONOCYTE % (test code=MO%) 7.9 % 0.0-10.0 EOSINOPHIL % (test code=EO%) 1.8 % 0.0-5.0 BASOPHIL % (test code=BA%) 0.1 % 0.0-1.0 NUCLEATED RBC % (test code=NRBC%) 0.0 % 0-0 NEUTROPHIL # (test code=NT#) 10.31 K/mm3 1.8-7.7 IMMATURE GRANULOCYTE # (test code=IG#) 0.07 x10 3/uL 0-0.03 LYMPHOCYTE # (test code=LY#) 0.85 K/mm3 1.0-5.0 MONOCYTE # (test code=MO#) 0.98 K/mm3 0-0.8 EOSINOPHIL # (test code=EO#) 0.23 K/mm3 0.0-0.5 BASOPHIL # (test code=BA#) 0.01 K/mm3 0.0-0.2 NUCLEATED RBC # (test code=NRBC#) 0.00 K/mm3 0.0-0.1 MANUAL DIFF REQUIRED (test code=MDIFF) NO, ONLY SCAN NEEDED DIFFERENTIAL [id number] 12:08:00* Test Item Value Reference Range Comments STAIN ACCEPTABILITY (test code=STN ACCEPTABLE) CABOT RINGS (test code=CAB) MORPHOLOGY COMMENT (test code=MOC) PLATELET ESTIMATE (test code=PLTEST) PLATELET MORPHOLOGY (test code=PLTMORPH) CBC W/AUTO [id number] 12:08:00* Test Item Value Reference Range Comments WHITE BLOOD CELL (test code=WBC) 12.5 K/mm3 4.5-12.5 RED BLOOD CELL (test code=RBC) 2.67 mill/mm3 3.7-5.2 HEMOGLOBIN (test code=HGB) 8.2 gram/dL 11.5-15.5 HEMATOCRIT (test code=HCT) 27.6 % 36.0-46.0 MEAN CELL VOLUME (test code=MCV) 103.4 fL 80-98 MEAN CELL HGB (test code=MCH) 30.7 picogram 27.0-33.0 MEAN CELL HGB CONCETRATION (test code=MCHC) 29.7 gram/dL 33.0-36.0 RED CELL DISTRIBUTION WIDTH (test code=RDW) 16.2 % 11.6-16.2 RED CELL DISTRIBUTION WIDTH SD (test code=RDW-SD) 56.4 fL 37.0-51.0 PLATELET COUNT (test code=PLT) 101 K/mm3 150-450 MEAN PLATELET VOLUME (test code=MPV) 12.2 fL 6.7-11.0 NEUTROPHIL % (test code=NT%) 82.8 % 39.0-69.0 IMMATURE GRANULOCYTE % (test code=IG%) 0.6 % 0.0-5.0 LYMPHOCYTE % (test code=LY%) 6.8 % 25.0-55.0 MONOCYTE % (test code=MO%) 7.9 % 0.0-10.0 EOSINOPHIL % (test code=EO%) 1.8 % 0.0-5.0 BASOPHIL % (test code=BA%) 0.1 % 0.0-1.0 NUCLEATED RBC % (test code=NRBC%) 0.0 % 0-0 NEUTROPHIL # (test code=NT#) 10.31 K/mm3 1.8-7.7 IMMATURE GRANULOCYTE # (test code=IG#) 0.07 x10 3/uL 0-0.03 LYMPHOCYTE # (test code=LY#) 0.85 K/mm3 1.0-5.0 MONOCYTE # (test code=MO#) 0.98 K/mm3 0-0.8 EOSINOPHIL # (test code=EO#) 0.23 K/mm3 0.0-0.5 BASOPHIL # (test code=BA#) 0.01 K/mm3 0.0-0.2 NUCLEATED RBC # (test code=NRBC#) 0.00 K/mm3 0.0-0.1 MANUAL DIFF REQUIRED (test code=MDIFF) NO, ONLY SCAN NEEDED DIFFERENTIAL [id number] 12:08:00* Test Item Value Reference Range Comments STAIN ACCEPTABILITY (test code=STN ACCEPTABLE) MORPHOLOGY COMMENT (test code=MOC) PLATELET ESTIMATE (test code=PLTEST) PLATELET MORPHOLOGY (test code=PLTMORPH) CBC W/AUTO [id number] 12:08:00* Test Item Value Reference Range Comments WHITE BLOOD CELL (test code=WBC) 12.5 K/mm3 4.5-12.5 RED BLOOD CELL (test code=RBC) 2.67 mill/mm3 3.7-5.2 HEMOGLOBIN (test code=HGB) 8.2 gram/dL 11.5-15.5 HEMATOCRIT (test code=HCT) 27.6 % 36.0-46.0 MEAN CELL VOLUME (test code=MCV) 103.4 fL 80-98 MEAN CELL HGB (test code=MCH) 30.7 picogram 27.0-33.0 MEAN CELL HGB CONCETRATION (test code=MCHC) 29.7 gram/dL 33.0-36.0 RED CELL DISTRIBUTION WIDTH (test code=RDW) 16.2 % 11.6-16.2 RED CELL DISTRIBUTION WIDTH SD (test code=RDW-SD) 56.4 fL 37.0-51.0 PLATELET COUNT (test code=PLT) 101 K/mm3 150-450 MEAN PLATELET VOLUME (test code=MPV) 12.2 fL 6.7-11.0 NEUTROPHIL % (test code=NT%) 82.8 % 39.0-69.0 IMMATURE GRANULOCYTE % (test code=IG%) 0.6 % 0.0-5.0 LYMPHOCYTE % (test code=LY%) 6.8 % 25.0-55.0 MONOCYTE % (test code=MO%) 7.9 % 0.0-10.0 EOSINOPHIL % (test code=EO%) 1.8 % 0.0-5.0 BASOPHIL % (test code=BA%) 0.1 % 0.0-1.0 NUCLEATED RBC % (test code=NRBC%) 0.0 % 0-0 NEUTROPHIL # (test code=NT#) 10.31 K/mm3 1.8-7.7 IMMATURE GRANULOCYTE # (test code=IG#) 0.07 x10 3/uL 0-0.03 LYMPHOCYTE # (test code=LY#) 0.85 K/mm3 1.0-5.0 MONOCYTE # (test code=MO#) 0.98 K/mm3 0-0.8 EOSINOPHIL # (test code=EO#) 0.23 K/mm3 0.0-0.5 BASOPHIL # (test code=BA#) 0.01 K/mm3 0.0-0.2 NUCLEATED RBC # (test code=NRBC#) 0.00 K/mm3 0.0-0.1 MANUAL DIFF REQUIRED (test code=MDIFF) NO, ONLY SCAN NEEDED DIFFERENTIAL [id number] 12:08:00* Test Item Value Reference Range Comments STAIN ACCEPTABILITY (test code=STN ACCEPTABLE) CABOT RINGS (test code=CAB) MORPHOLOGY COMMENT (test code=MOC) PLATELET ESTIMATE (test code=PLTEST) PLATELET MORPHOLOGY (test code=PLTMORPH) BASIC METABOLIC [id number] 11:30:00* Test Item Value Reference Range Comments SODIUM (test code=NA) 142 mmol/L 136-145 POTASSIUM (test code=K) 4.2 mmol/L 3.5-5.1 CHLORIDE (test code=CL) 104.0 mmol/L 98-107 CARBON DIOXIDE (test code=CO2) 30.0 mmol/L 21-32 ANION GAP (test code=GAP) 12.2 10-20 GLUCOSE (test code=GLU) 114 mg/dL 74-106 BLOOD UREA NITROGEN (test code=BUN) 18 mg/dL 7-18 GLOMERULAR FILTRATION RATE (test code=GFR) 18 mL/min >=60 Estimated GFR by using Modified MDRD formula.Chronic kidney disease is defined as either kidney damageor GFR <60 mL/min/1.73 m2 for >3 months. CREATININE (test code=CREAT) 2.60 mg/dL 0.55-1.02 Note change in reference range due to change in reagent. BUN/CREATININE RATIO (test code=BUN/CREA) 6.8 10-20 CALCIUM (test code=CA) 7.5 mg/dL 8.5-10.1 [id number] 06:23:00* Test Item Value Reference Range Comments GLUBED (test code=GLUBED) 152 mg/dL 74-106 Performed by certified plastics production machine operator at [facility] [id number] 01:52:00* Test Item Value Reference Range Comments GLUBED (test code=GLUBED) 119 mg/dL 74-106 Performed by certified plastics production machine operator at [facility] [id number] 21:46:00* Test Item Value Reference Range Comments GLUBED (test code=GLUBED) 133 mg/dL 74-106 Performed by certified plastics production machine operator at [facility] [id number] 18:54:00* Test Item Value Reference Range Comments GLUBED (test code=GLUBED) 121 mg/dL 74-106 Performed by certified plastics production machine operator at [facility] [id number] 18:54:00* Test Item Value Reference Range Comments GLUBED (test code=GLUBED) 131 mg/dL 74-106 Performed by certified plastics production machine operator at [facility] CBC W/AUTO [id number] 06:33:00* Test Item Value Reference Range Comments WHITE BLOOD CELL (test code=WBC) 13.6 K/mm3 4.5-12.5 RED BLOOD CELL (test code=RBC) 2.97 mill/mm3 3.7-5.2 HEMOGLOBIN (test code=HGB) 9.0 gram/dL 11.5-15.5 HEMATOCRIT (test code=HCT) 30.7 % 36.0-46.0 MEAN CELL VOLUME (test code=MCV) 103.4 fL 80-98 MEAN CELL HGB (test code=MCH) 30.3 picogram 27.0-33.0 MEAN CELL HGB CONCETRATION (test code=MCHC) 29.3 gram/dL 33.0-36.0 RED CELL DISTRIBUTION WIDTH (test code=RDW) 16.2 % 11.6-16.2 RED CELL DISTRIBUTION WIDTH SD (test code=RDW-SD) 56.4 fL 37.0-51.0 PLATELET COUNT (test code=PLT) 124 K/mm3 150-450 MEAN PLATELET VOLUME (test code=MPV) 12.1 fL 6.7-11.0 NEUTROPHIL % (test code=NT%) 83.1 % 39.0-69.0 IMMATURE GRANULOCYTE % (test code=IG%) 0.7 % 0.0-5.0 LYMPHOCYTE % (test code=LY%) 6.9 % 25.0-55.0 MONOCYTE % (test code=MO%) 7.2 % 0.0-10.0 EOSINOPHIL % (test code=EO%) 1.8 % 0.0-5.0 BASOPHIL % (test code=BA%) 0.3 % 0.0-1.0 NUCLEATED RBC % (test code=NRBC%) 0.2 % 0-0 NEUTROPHIL # (test code=NT#) 11.27 K/mm3 1.8-7.7 IMMATURE GRANULOCYTE # (test code=IG#) 0.10 x10 3/uL 0-0.03 LYMPHOCYTE # (test code=LY#) 0.93 K/mm3 1.0-5.0 MONOCYTE # (test code=MO#) 0.97 K/mm3 0-0.8 EOSINOPHIL # (test code=EO#) 0.24 K/mm3 0.0-0.5 BASOPHIL # (test code=BA#) 0.04 K/mm3 0.0-0.2 NUCLEATED RBC # (test code=NRBC#) 0.03 K/mm3 0.0-0.1 MANUAL DIFF REQUIRED (test code=MDIFF) NO, ONLY SCAN NEEDED DIFFERENTIAL [id number] 06:33:00* Test Item Value Reference Range Comments STAIN ACCEPTABILITY (test code=STN ACCEPTABLE) STAIN ACCEPTABLE POLYCHROMASIA (test code=POLC) 1+ HYPOCHROMIA (test code=HYPO) 1+ POIKILOCYTOSIS (test code=POIK) 1+ ANISOCYTOSIS (test code=ANISO) 1+ MICROCYTOSIS (test code=MICR) 1+ SCHISTOCYTES (test code=JUAN MIGUEL) 1+ PLATELET ESTIMATE (test code=PLTEST) DECREASED PLATELET MORPHOLOGY (test code=PLTMORPH) NORMAL [id number] 05:58:00* Test Item Value Reference Range Comments GLUBED (test code=GLUBED) 163 mg/dL 74-106 Performed by certified plastics production machine operator at [facility] BASIC METABOLIC [id number] 05:49:00* Test Item Value Reference Range Comments SODIUM (test code=NA) 137 mmol/L 136-145 POTASSIUM (test code=K) 4.4 mmol/L 3.5-5.1 CHLORIDE (test code=CL) 103.0 mmol/L 98-107 CARBON DIOXIDE (test code=CO2) 25.0 mmol/L 21-32 ANION GAP (test code=GAP) 13.4 10-20 GLUCOSE (test code=GLU) 138 mg/dL 74-106 BLOOD UREA NITROGEN (test code=BUN) 34 mg/dL 7-18 GLOMERULAR FILTRATION RATE (test code=GFR) 12 mL/min >=60 Estimated GFR by using Modified MDRD formula.Chronic kidney disease is defined as either kidney damageor GFR <60 mL/min/1.73 m2 for >3 months. CREATININE (test code=CREAT) 3.90 mg/dL 0.55-1.02 Note change in reference range due to change in reagent. BUN/CREATININE RATIO (test code=BUN/CREA) 8.8 10-20 CALCIUM (test code=CA) 7.1 mg/dL 8.5-10.1 BASIC METABOLIC [id number] 05:29:00* Test Item Value Reference Range Comments SODIUM (test code=NA) 137 mmol/L 136-145 POTASSIUM (test code=K) 4.4 mmol/L 3.5-5.1 CHLORIDE (test code=CL) 103.0 mmol/L 98-107 CARBON DIOXIDE (test code=CO2) mmol/L 21-32 ANION GAP (test code=GAP) 10-20 GLUCOSE (test code=GLU) mg/dL 74-106 BLOOD UREA NITROGEN (test code=BUN) mg/dL 7-18 GLOMERULAR FILTRATION RATE (test code=GFR) mL/min >=60 CREATININE (test code=CREAT) mg/dL 0.55-1.02 BUN/CREATININE RATIO (test code=BUN/CREA) 10-20 CALCIUM (test code=CA) mg/dL 8.5-10.1 CBC W/AUTO [id number] 05:13:00* Test Item Value Reference Range Comments WHITE BLOOD CELL (test code=WBC) 13.6 K/mm3 4.5-12.5 RED BLOOD CELL (test code=RBC) 2.97 mill/mm3 3.7-5.2 HEMOGLOBIN (test code=HGB) 9.0 gram/dL 11.5-15.5 HEMATOCRIT (test code=HCT) 30.7 % 36.0-46.0 MEAN CELL VOLUME (test code=MCV) 103.4 fL 80-98 MEAN CELL HGB (test code=MCH) 30.3 picogram 27.0-33.0 MEAN CELL HGB CONCETRATION (test code=MCHC) 29.3 gram/dL 33.0-36.0 RED CELL DISTRIBUTION WIDTH (test code=RDW) 16.2 % 11.6-16.2 RED CELL DISTRIBUTION WIDTH SD (test code=RDW-SD) 56.4 fL 37.0-51.0 PLATELET COUNT (test code=PLT) 124 K/mm3 150-450 MEAN PLATELET VOLUME (test code=MPV) 12.1 fL 6.7-11.0 NEUTROPHIL % (test code=NT%) 83.1 % 39.0-69.0 IMMATURE GRANULOCYTE % (test code=IG%) 0.7 % 0.0-5.0 LYMPHOCYTE % (test code=LY%) 6.9 % 25.0-55.0 MONOCYTE % (test code=MO%) 7.2 % 0.0-10.0 EOSINOPHIL % (test code=EO%) 1.8 % 0.0-5.0 BASOPHIL % (test code=BA%) 0.3 % 0.0-1.0 NUCLEATED RBC % (test code=NRBC%) 0.2 % 0-0 NEUTROPHIL # (test code=NT#) 11.27 K/mm3 1.8-7.7 IMMATURE GRANULOCYTE # (test code=IG#) 0.10 x10 3/uL 0-0.03 LYMPHOCYTE # (test code=LY#) 0.93 K/mm3 1.0-5.0 MONOCYTE # (test code=MO#) 0.97 K/mm3 0-0.8 EOSINOPHIL # (test code=EO#) 0.24 K/mm3 0.0-0.5 BASOPHIL # (test code=BA#) 0.04 K/mm3 0.0-0.2 NUCLEATED RBC # (test code=NRBC#) 0.03 K/mm3 0.0-0.1 MANUAL DIFF REQUIRED (test code=MDIFF) NO, ONLY SCAN NEEDED DIFFERENTIAL [id number] 05:13:00* Test Item Value Reference Range Comments STAIN ACCEPTABILITY (test code=STN ACCEPTABLE) CABOT RINGS (test code=CAB) MORPHOLOGY COMMENT (test code=MOC) PLATELET ESTIMATE (test code=PLTEST) PLATELET MORPHOLOGY (test code=PLTMORPH) CBC W/AUTO [id number] 05:13:00* Test Item Value Reference Range Comments WHITE BLOOD CELL (test code=WBC) 13.6 K/mm3 4.5-12.5 RED BLOOD CELL (test code=RBC) 2.97 mill/mm3 3.7-5.2 HEMOGLOBIN (test code=HGB) 9.0 gram/dL 11.5-15.5 HEMATOCRIT (test code=HCT) 30.7 % 36.0-46.0 MEAN CELL VOLUME (test code=MCV) 103.4 fL 80-98 MEAN CELL HGB (test code=MCH) 30.3 picogram 27.0-33.0 MEAN CELL HGB CONCETRATION (test code=MCHC) 29.3 gram/dL 33.0-36.0 RED CELL DISTRIBUTION WIDTH (test code=RDW) 16.2 % 11.6-16.2 RED CELL DISTRIBUTION WIDTH SD (test code=RDW-SD) 56.4 fL 37.0-51.0 PLATELET COUNT (test code=PLT) 124 K/mm3 150-450 MEAN PLATELET VOLUME (test code=MPV) 12.1 fL 6.7-11.0 NEUTROPHIL % (test code=NT%) 83.1 % 39.0-69.0 IMMATURE GRANULOCYTE % (test code=IG%) 0.7 % 0.0-5.0 LYMPHOCYTE % (test code=LY%) 6.9 % 25.0-55.0 MONOCYTE % (test code=MO%) 7.2 % 0.0-10.0 EOSINOPHIL % (test code=EO%) 1.8 % 0.0-5.0 BASOPHIL % (test code=BA%) 0.3 % 0.0-1.0 NUCLEATED RBC % (test code=NRBC%) 0.2 % 0-0 NEUTROPHIL # (test code=NT#) 11.27 K/mm3 1.8-7.7 IMMATURE GRANULOCYTE # (test code=IG#) 0.10 x10 3/uL 0-0.03 LYMPHOCYTE # (test code=LY#) 0.93 K/mm3 1.0-5.0 MONOCYTE # (test code=MO#) 0.97 K/mm3 0-0.8 EOSINOPHIL # (test code=EO#) 0.24 K/mm3 0.0-0.5 BASOPHIL # (test code=BA#) 0.04 K/mm3 0.0-0.2 NUCLEATED RBC # (test code=NRBC#) 0.03 K/mm3 0.0-0.1 MANUAL DIFF REQUIRED (test code=MDIFF) NO, ONLY SCAN NEEDED DIFFERENTIAL [id number] 05:13:00* Test Item Value Reference Range Comments STAIN ACCEPTABILITY (test code=STN ACCEPTABLE) MORPHOLOGY COMMENT (test code=MOC) PLATELET ESTIMATE (test code=PLTEST) PLATELET MORPHOLOGY (test code=PLTMORPH) CBC W/AUTO [id number] 05:12:00* Test Item Value Reference Range Comments WHITE BLOOD CELL (test code=WBC) 13.6 K/mm3 4.5-12.5 RED BLOOD CELL (test code=RBC) 2.97 mill/mm3 3.7-5.2 HEMOGLOBIN (test code=HGB) 9.0 gram/dL 11.5-15.5 HEMATOCRIT (test code=HCT) 30.7 % 36.0-46.0 MEAN CELL VOLUME (test code=MCV) 103.4 fL 80-98 MEAN CELL HGB (test code=MCH) 30.3 picogram 27.0-33.0 MEAN CELL HGB CONCETRATION (test code=MCHC) 29.3 gram/dL 33.0-36.0 RED CELL DISTRIBUTION WIDTH (test code=RDW) 16.2 % 11.6-16.2 RED CELL DISTRIBUTION WIDTH SD (test code=RDW-SD) 56.4 fL 37.0-51.0 PLATELET COUNT (test code=PLT) 124 K/mm3 150-450 MEAN PLATELET VOLUME (test code=MPV) 12.1 fL 6.7-11.0 NEUTROPHIL % (test code=NT%) 83.1 % 39.0-69.0 IMMATURE GRANULOCYTE % (test code=IG%) 0.7 % 0.0-5.0 LYMPHOCYTE % (test code=LY%) 6.9 % 25.0-55.0 MONOCYTE % (test code=MO%) 7.2 % 0.0-10.0 EOSINOPHIL % (test code=EO%) 1.8 % 0.0-5.0 BASOPHIL % (test code=BA%) 0.3 % 0.0-1.0 NUCLEATED RBC % (test code=NRBC%) 0.2 % 0-0 NEUTROPHIL # (test code=NT#) 11.27 K/mm3 1.8-7.7 IMMATURE GRANULOCYTE # (test code=IG#) 0.10 x10 3/uL 0-0.03 LYMPHOCYTE # (test code=LY#) 0.93 K/mm3 1.0-5.0 MONOCYTE # (test code=MO#) 0.97 K/mm3 0-0.8 EOSINOPHIL # (test code=EO#) 0.24 K/mm3 0.0-0.5 BASOPHIL # (test code=BA#) 0.04 K/mm3 0.0-0.2 NUCLEATED RBC # (test code=NRBC#) 0.03 K/mm3 0.0-0.1 MANUAL DIFF REQUIRED (test code=MDIFF) NO, ONLY SCAN NEEDED DIFFERENTIAL [id number] 05:12:00* Test Item Value Reference Range Comments STAIN ACCEPTABILITY (test code=STN ACCEPTABLE) CABOT RINGS (test code=CAB) MORPHOLOGY COMMENT (test code=MOC) PLATELET ESTIMATE (test code=PLTEST) PLATELET MORPHOLOGY (test code=PLTMORPH) CBC W/AUTO [id number] 05:12:00* Test Item Value Reference Range Comments WHITE BLOOD CELL (test code=WBC) 13.6 K/mm3 4.5-12.5 RED BLOOD CELL (test code=RBC) 2.97 mill/mm3 3.7-5.2 HEMOGLOBIN (test code=HGB) 9.0 gram/dL 11.5-15.5 HEMATOCRIT (test code=HCT) 30.7 % 36.0-46.0 MEAN CELL VOLUME (test code=MCV) 103.4 fL 80-98 MEAN CELL HGB (test code=MCH) 30.3 picogram 27.0-33.0 MEAN CELL HGB CONCETRATION (test code=MCHC) 29.3 gram/dL 33.0-36.0 RED CELL DISTRIBUTION WIDTH (test code=RDW) 16.2 % 11.6-16.2 RED CELL DISTRIBUTION WIDTH SD (test code=RDW-SD) 56.4 fL 37.0-51.0 PLATELET COUNT (test code=PLT) 124 K/mm3 150-450 MEAN PLATELET VOLUME (test code=MPV) 12.1 fL 6.7-11.0 NEUTROPHIL % (test code=NT%) 83.1 % 39.0-69.0 IMMATURE GRANULOCYTE % (test code=IG%) 0.7 % 0.0-5.0 LYMPHOCYTE % (test code=LY%) 6.9 % 25.0-55.0 MONOCYTE % (test code=MO%) 7.2 % 0.0-10.0 EOSINOPHIL % (test code=EO%) 1.8 % 0.0-5.0 BASOPHIL % (test code=BA%) 0.3 % 0.0-1.0 NUCLEATED RBC % (test code=NRBC%) 0.2 % 0-0 NEUTROPHIL # (test code=NT#) 11.27 K/mm3 1.8-7.7 IMMATURE GRANULOCYTE # (test code=IG#) 0.10 x10 3/uL 0-0.03 LYMPHOCYTE # (test code=LY#) 0.93 K/mm3 1.0-5.0 MONOCYTE # (test code=MO#) 0.97 K/mm3 0-0.8 EOSINOPHIL # (test code=EO#) 0.24 K/mm3 0.0-0.5 BASOPHIL # (test code=BA#) 0.04 K/mm3 0.0-0.2 NUCLEATED RBC # (test code=NRBC#) 0.03 K/mm3 0.0-0.1 MANUAL DIFF REQUIRED (test code=MDIFF) NO, ONLY SCAN NEEDED DIFFERENTIAL [id number] 05:12:00* Test Item Value Reference Range Comments STAIN ACCEPTABILITY (test code=STN ACCEPTABLE) CABOT RINGS (test code=CAB) MORPHOLOGY COMMENT (test code=MOC) PLATELET ESTIMATE (test code=PLTEST) PLATELET MORPHOLOGY (test code=PLTMORPH) [id number] 22:55:00* Test Item Value Reference Range Comments GLUBED (test code=GLUBED) 149 mg/dL 74-106 Performed by certified plastics production machine operator at [facility] [id number] 17:33:00* Test Item Value Reference Range Comments GLUBED (test code=GLUBED) 136 mg/dL 74-106 Performed by certified plastics production machine operator at [facility] - US GUIDANCE VASC [id number] 16:24:00 Name: SOCORRO MORA [facility] : 1950 Age/S: 67 / F [address] Unit #: [id number] Loc: [place] [address] Phys: Catalino Mike MD Acct: [id number] Dis Date: Status: ADM IN PHONE #: [phone] Exam Date: 05/03/2018 1332 FAX #: [phone] Reason: EXAMS: CPT CODE: [id number] US GUIDANCE VASC ACCESS 91098 Fluoro Time: DAP (Gy m2): Air Kerma (mGy): EXAM: Insertion of a tunneled hemodialysis catheter with sonographic and fluoroscopic guidance and conscious sedation; INFORMATION: Renal failure. Indwelling temporary hemodialysis catheter; TECHNIQUE AND FINDINGS: Conscious sedation start time: 1257 hours; Completion time: 1332 hours; Under physician supervision 1 mg of Versed and 25 mcg of fentanyl were administered intravenously for mild sedation; the patient's heart rate, blood pressure and pulse oximetry were continuously monitored by a trained registered nurse. Physician pukh-gt-ozhm sedation time was 30 minutes. After obtaining informed consent, the patient was placed supine on the procedure table. Initial fluoroscopic imaging showed the tip of a right IJ temporary hemodialysis catheter positioned in the SVC. Access to the right internal jugular vein was relatively high in the neck base to create a new access to the right IJ in the inferior neck region. Conscious sedation was initiated as described above. The patient's skin in the right neck and clay perior chest region was prepped and draped in the usual sterile fashion, a pplying all elements of maximal sterile barrier technique. Xylocaine was a dministered and using real-time sonographic guidance the right IJ was acce ssed with a micropuncture system followed by insertion of an 035 guidewire . A sonographic image was stored in PACS. Sequential dilatation was performed under fluoroscopic guidance followed by insertion of a 15 [place] peel-away sheath. A subcutaneous tunnel was created in the usual sterile fashion and a tunneled hemodialysis catheter was then inserted and positio kyle with its tip in the cranial aspect of the right atrium. Good blo od return was noticed; the catheter was sutured to the skin and flushed wi th heparinized saline. Subsequently, the temporary hemodialysis catheter i n the right neck region was removed under sterile conditions and hemostasi s was promptly achieved. IMPRESSION: 1. Successful insertion of a tunneled hemodialysis catheter using sonographic and flu oroscopic guidance and conscious sedation. 2. Removal of a temporary rig ht IJ hemodialysis catheter. Fluoroscopy Time: 6 sec C AK : 6.67 mGy PAGE 1 Signed Report (CONTINUED) [facility] 1950 Age[facility]S: 67 / F [address] [facility] Unit #: [id number] Loc: [place] [address] Ph ys: Catalino Mike MD Acct: [id number] Dis Date: Status: ADM IN PHONE #: [phone] Exam Date: 05/03/2018 1332 FAX #: [phone] Reason: EXAMS: CPT CODE: [id number] US GUIDANCE VASC ACCESS 15795 Fluoro Time: DAP (Gy m2): Air Kerma (mGy): <Continued> DAP : 2967 mGy sq cm at 1624 Reported and signed by: Antonio Goff M.D. CC: Catalino Mike MD; Laureano Barnett DO Technologist: SOCORRO BURGOS RT(R) Trnscb Date/Time: 05/03/2018 (1623) Lobo Orig Print D/T: S: 05/03/2018 (1626) PAGE 2 Signed Report - SP FLUORO GUID CTRL ACC [id number] 16:24:00 Name: SOCORRO MORA [facility] : 1950 Age/S: 67 / F [address] Unit #: [id number] Loc: [place] [address] Phys: Catalino Mike MD Acct: [id number] Dis Date: Status: ADM IN PHONE #: [phone] Exam Date: 05/03/2018 1332 FAX #: [phone] Reason: EXAMS: CPT CODE: [id number] SP FLUORO GUID CTRL ACC DEV 01696 Fluoro Time: 6 DAP (Gy m2): 2967 Air Kerma (mGy): 6.67 EXAM: Insertion of a tunneled hemodialysis catheter with sonographic and fluoroscopic guidance and conscious sedation; INFORMATION: Renal failure. Indwelling temporary hemodialysis catheter; TECHNIQUE AND FINDINGS: Conscious sedation start time: 1257 hours; Completion time: 1332 hours; Under physician supervision 1 mg of Versed and 25 mcg of fentanyl were administered intravenously for mild sedation; the patient's heart rate, blood pressure and pulse oximetry were continuously monitored by a trained registered nurse. Physician mdvw-xd-rdgo sedation time was 30 minutes. After obtaining informed consent, the patient was placed supine on the procedure table. Initial fluoroscopic imaging showed the tip of a right IJ temporary hemodialysis catheter positioned in the SVC. Access to the right internal jugular vein was relatively high in the neck base to create a new access to the right IJ in the inferior neck region. Conscious sedation was initiated as described above. The patient's skin in the right neck and clay perior chest region was prepped and draped in the usual sterile fashion, a pplying all elements of maximal sterile barrier technique. Xylocaine was a dministered and using real-time sonographic guidance the right IJ was acce ssed with a micropuncture system followed by insertion of an 035 guidewire . A sonographic image was stored in PACS. Sequential dilatation was performed under fluoroscopic guidance followed by insertion of a 15 [place] peel-away sheath. A subcutaneous tunnel was created in the usual sterile fashion and a tunneled hemodialysis catheter was then inserted and positio kyle with its tip in the cranial aspect of the right atrium. Good blo od return was noticed; the catheter was sutured to the skin and flushed wi th heparinized saline. Subsequently, the temporary hemodialysis catheter i n the right neck region was removed under sterile conditions and hemostasi s was promptly achieved. IMPRESSION: 1. Successful insertion of a tunneled hemodialysis catheter using sonographic and flu oroscopic guidance and conscious sedation. 2. Removal of a temporary rig ht IJ hemodialysis catheter. Fluoroscopy Time: 6 sec C AK : 6.67 mGy PAGE 1 Signed Report (CONTINUED) Name: SOCORRO MORA [facility] : 1950 Age/S: 67 / F [address] Unit #: [id number] Loc: [place] [address] Ph ys: Catalino Mike MD Acct: [id number] Dis Date: Status: ADM IN PHONE #: [phone] Exam Date: 05/03/2018 1332 FAX #: [phone] Reason: EXAMS: CPT CODE: [id number] SP FLUORO GUID CTRL ACC DEV 46932 Fluoro Time: 6 DAP (Gy m2): 2967 Air Kerma (mGy): 6.67 <Continued> DAP : 2967 mGy sq cm at 1624 Reported and signed by: Antonio Goff M.D. CC: Catalino Mike MD; Laureano Barnett DO Technologist: BARNEY LORETTA RT(R) Trnscb Date/Time: 05/03/2018 (1624) [id number] Orig Print D/T: S: 05/03/2018 (4550) PAGE 2 Signed Report - XR CHEST 1 [id number] 13:59:00 FAX: Catalino Cartwright MD [place]: [address]: ADM FAX: Laureano Meadows DO [phone] Name: SOCORRO MORA [facility] : 1950 Age/S: 67/F [address] [facility] Unit #: [id number] Loc: [facility] [place] [address] Phys: Antonio Goff MD Acct: [id number] Dis Date: Status: ADM IN PHONE #: [phone] Exam Date: 05/03/2018 1340 FAX #: [phone] Reason: ESRD; [facility]; EXAMS: CPT CODE: [id number] XR CHEST 1 V 98528 HISTORY: Post catheter placement. COMPARISON: Previous day. Feeding tube is unchanged. Right jugular catheter with the tip projected over the SVC. No pneumothorax. Mild congestion. Small bilateral pleural effusions with left lower lobe segmental atelectasis. Cardiomegaly. IMPRESSION: No pneumothorax after right jugular catheter placement with the tip projected over the SVC. Mild congestion. at 1355 Reported and signed by: Dc Yao M.D. CC: Catalino Mike MD; Laureano Barnett DO Technologist: Summer Stevens(Tony) Trnscrd Date/Time/By: 05/03/2018 (0327) : By: Jose R.TH4 Orig Print D/T: S: 05/03/2018 (1137) PAGE 1 Signed Report [id number] 11:58:00* Test Item Value Reference Range Comments GLUBED (test code=GLUBED) 167 mg/dL 74-106 Performed by certified plastics production machine operator at [facility] [id number] 06:22:00* Test Item Value Reference Range Comments GLUBED (test code=GLUBED) 115 mg/dL 74-106 Performed by certified plastics production machine operator at [facility] [id number] 21:36:00* Test Item Value Reference Range Comments GLUBED (test code=GLUBED) 164 mg/dL 74-106 Performed by certified plastics production machine operator at [facility] - XR SWLW FUNC W/C [id number] 14:15:00 FAX: Catalino Cartwright MD [place]: [address] St: ADM FAX: Cherri Zamarripa MD [phone] FAX: Laureano Meadows DO [phone] Name: SOCORRO MORA [facility] : 1950 Age/S: 67/F [address] [facility] Unit #: [id number] Loc: [address] [place] [address] Phys: Cherri Weiss MD Acct: [id number] Dis Date: Status: ADM IN ONE #: [phone] Exam Date: 05/02/2018 1235 FAX #: [phone] Reason: ASSESS SWALLOW EXAMS: CPT CODE: [id number] XR SWLW FUNC W/C V 75014 HISTORY: Aspir ation. This study was performed in concert with the speech patholo gist. Varying grades of barium were administered. No aspiration or laryngeal penetration. IMPRESSION: No aspiration or laryngeal penetration. For detailed evalu ation please see the accompanying sheet provided by the speech therapist . Fluoroscopy time utilized 105.9 seconds and 4 images were ob tained. at 1415 Reported and signed by: Dc Yao M.D. CC: Catalino Mike MD; Cherri Weiss MD; Laureano Barnett DO Technol ogist: Linda Rodas RT(R) Trnscrd Date/Time/ By: 05/02/2018 (9015) : By: Jose R.TH4 Orig Print D/T: S: 05/02/2018 (6 897) PAGE 1 Signed Report CBC W/AUTO [id number] 08:51:00* Test Item Value Reference Range Comments WHITE BLOOD CELL (test code=WBC) 11.5 K/mm3 4.5-12.5 RED BLOOD CELL (test code=RBC) 2.78 mill/mm3 3.7-5.2 HEMOGLOBIN (test code=HGB) 8.6 gram/dL 11.5-15.5 HEMATOCRIT (test code=HCT) 28.0 % 36.0-46.0 MEAN CELL VOLUME (test code=MCV) 100.7 fL 80-98 MEAN CELL HGB (test code=MCH) 30.9 picogram 27.0-33.0 MEAN CELL HGB CONCETRATION (test code=MCHC) 30.7 gram/dL 33.0-36.0 RED CELL DISTRIBUTION WIDTH (test code=RDW) 15.3 % 11.6-16.2 RED CELL DISTRIBUTION WIDTH SD (test code=RDW-SD) 54.2 fL 37.0-51.0 PLATELET COUNT (test code=PLT) 129 K/mm3 150-450 MEAN PLATELET VOLUME (test code=MPV) 11.9 fL 6.7-11.0 NEUTROPHIL % (test code=NT%) 79.4 % 39.0-69.0 IMMATURE GRANULOCYTE % (test code=IG%) 1.0 % 0.0-5.0 LYMPHOCYTE % (test code=LY%) 8.6 % 25.0-55.0 MONOCYTE % (test code=MO%) 7.1 % 0.0-10.0 EOSINOPHIL % (test code=EO%) 3.6 % 0.0-5.0 BASOPHIL % (test code=BA%) 0.3 % 0.0-1.0 NUCLEATED RBC % (test code=NRBC%) 0.2 % 0-0 NEUTROPHIL # (test code=NT#) 9.17 K/mm3 1.8-7.7 IMMATURE GRANULOCYTE # (test code=IG#) 0.11 x10 3/uL 0-0.03 LYMPHOCYTE # (test code=LY#) 0.99 K/mm3 1.0-5.0 MONOCYTE # (test code=MO#) 0.82 K/mm3 0-0.8 EOSINOPHIL # (test code=EO#) 0.42 K/mm3 0.0-0.5 BASOPHIL # (test code=BA#) 0.03 K/mm3 0.0-0.2 NUCLEATED RBC # (test code=NRBC#) 0.02 K/mm3 0.0-0.1 MANUAL DIFF REQUIRED (test code=MDIFF) NO PT IS A HARDSTICK .V.LAB.AB 05/02/18 0637COMPREHENSIVE METABOLIC [id number] 07:35:00* Test Item Value Reference Range Comments SODIUM (test code=NA) 143 mmol/L 136-145 POTASSIUM (test code=K) 4.5 mmol/L 3.5-5.1 CHLORIDE (test code=CL) 105.0 mmol/L 98-107 CARBON DIOXIDE (test code=CO2) 28.0 mmol/L 21-32 ANION GAP (test code=GAP) 14.5 10-20 GLUCOSE (test code=GLU) 131 mg/dL 74-106 BLOOD UREA NITROGEN (test code=BUN) 35 mg/dL 7-18 GLOMERULAR FILTRATION RATE (test code=GFR) 10 mL/min >=60 Estimated GFR by using Modified MDRD formula.Chronic kidney disease is defined as either kidney damageor GFR <60 mL/min/1.73 m2 for >3 months. CREATININE (test code=CREAT) 4.40 mg/dL 0.55-1.02 Note change in reference range due to change in reagent. BUN/CREATININE RATIO (test code=BUN/CREA) 7.9 10-20 TOTAL PROTEIN (test code=PROT) 4.9 gram/dL 6.4-8.2 ALBUMIN (test code=ALB) 1.9 g/dL 3.4-5.0 GLOBULIN (test code=GLOB) 3.0 gram/dL 2.7-4.2 ALBUMIN/GLOBULIN RATIO (test code=A/G) 0.6 0.75-1.50 CALCIUM (test code=CA) 6.9 mg/dL 8.5-10.1 BILIRUBIN TOTAL (test code=BILT) 0.50 mg/dL 0.0-1.0 SGOT/AST (test code=AST) 60 IUnit/L 15-37 SGPT/ALT (test code=ALT) 35 IUnit/L 12-78 ALKALINE PHOSPHATASE TOTAL (test code=ALKP) 126 IUnit/L 45-117 Note change in reference range due to change in reagent. CREATINE KINASE (CK)2018-05-02 07:35:00* Test Item Value Reference Range Comments CREATINE KINASE (CK) (test code=CK) 234 IUnit/L 26-208 [id number] 07:35:00* Test Item Value Reference Range Comments MAGNESIUM (test code=MAG) 1.9 mg/dL 1.8-2.4 [id number] 07:17:00* Test Item Value Reference Range Comments AMMONIA (test code=AMM) 22 umol/L 11-32 [id number] 05:00:00* Test Item Value Reference Range Comments GLUBED (test code=GLUBED) 123 mg/dL 74-106 Performed by certified plastics production machine operator at [facility] [id number] 21:06:00* Test Item Value Reference Range Comments GLUBED (test code=GLUBED) 109 mg/dL 74-106 Performed by certified plastics production machine operator at [facility] - XR CHEST 1 [id number] 12:02:00 FAX: Catalino Cartwright MD [place]: [address]: ADM FAX: Cherri Zamarripa MD [phone] FAX: Laureano Meadows [phone] Name: SOCORRO MORA [facility] : 1950 Age/S: 67/F [address] [facility] Unit #: [id number] Loc: [address] [place] [address] Phys: Cherri Weiss MD Acct: [id number] Dis Date: Status: ADM IN ONE #: [phone] Exam Date: 05/01/2018 1122 FAX #: [phone] Reason: NG TUBE PLACEMENT EXAMS: CPT CODE: [id number] XR CHEST 1 V 61462 HISTORY: Feedi ng tube placement. COMPARISON: April 20142018. Feeding tube tip in the gastric fundus. This could be advanced 5 to 10 cm for better positioning. Right catheter is unchanged. Moderate bilateral pl eural effusions with subsegmental atelectasis are unchanged. No infiltrate s or congestion. Cardiomegaly. IMPRESSION: Fee ding tube tip in the gastric body and fundus region which could be advan alfa 5 to 10 cm for better positioning. at 1202 Reported and signed by: Dc Yao M.D. CC: Catalino Mike MD; Joi Weiss MD; Laureano Barnett DO Technologist: Sushma Morin RT(R) Trnscrd Date/Time/By: 05/01/2018 (1378) : By: [email or web address] Orig Print D/T: S: 05/01/2018 (7777) PAGE 1 Signed Report [id number] 07:18:00 * Test Item Value Reference Range Comments GLUBED (test code=GLUBED) 101 mg/dL 74-106 Performed by certified plastics production machine operator at [facility] [id number] 21:38:00* Test Item Value Reference Range Comments GLUBED (test code=GLUBED) 122 mg/dL 74-106 Performed by certified plastics production machine operator at [facility] [id number] 16:50:00* Test Item Value Reference Range Comments GLUBED (test code=GLUBED) 142 mg/dL 74-106 Performed by certified plastics production machine operator at [facility] [id number] 12:59:00* Test Item Value Reference Range Comments GLUBED (test code=GLUBED) 84 mg/dL 74-106 Performed by certified plastics production machine operator at [facility] BASIC METABOLIC [id number] 06:22:00* Test Item Value Reference Range Comments SODIUM (test code=NA) 140 mmol/L 136-145 POTASSIUM (test code=K) 3.8 mmol/L 3.5-5.1 CHLORIDE (test code=CL) 102.0 mmol/L 98-107 CARBON DIOXIDE (test code=CO2) 28.0 mmol/L 21-32 ANION GAP (test code=GAP) 13.8 10-20 GLUCOSE (test code=GLU) 105 mg/dL 74-106 BLOOD UREA NITROGEN (test code=BUN) 51 mg/dL 7-18 RESULT VERIFIED BY REPEAT ANALYSIS GLOMERULAR FILTRATION RATE (test code=GFR) 7 mL/min >=60 Estimated GFR by using Modified MDRD formula.Chronic kidney disease is defined as either kidney damageor GFR <60 mL/min/1.73 m2 for >3 months. CREATININE (test code=CREAT) 5.70 mg/dL 0.55-1.02 Note change in reference range due to change in reagent. BUN/CREATININE RATIO (test code=BUN/CREA) 8.9 10-20 CALCIUM (test code=CA) 6.6 mg/dL 8.5-10.1 BASIC METABOLIC [id number] 06:02:00* Test Item Value Reference Range Comments SODIUM (test code=NA) 140 mmol/L 136-145 POTASSIUM (test code=K) 3.8 mmol/L 3.5-5.1 CHLORIDE (test code=CL) 102.0 mmol/L 98-107 CARBON DIOXIDE (test code=CO2) mmol/L 21-32 ANION GAP (test code=GAP) 10-20 GLUCOSE (test code=GLU) mg/dL 74-106 BLOOD UREA NITROGEN (test code=BUN) mg/dL 7-18 GLOMERULAR FILTRATION RATE (test code=GFR) mL/min >=60 CREATININE (test code=CREAT) mg/dL 0.55-1.02 BUN/CREATININE RATIO (test code=BUN/CREA) 10-20 CALCIUM (test code=CA) mg/dL 8.5-10.1 [id number] 06:01:00* Test Item Value Reference Range Comments GLUBED (test code=GLUBED) 106 mg/dL 74-106 Performed by certified plastics production machine operator at [facility] CBC W/AUTO [id number] 05:23:00* Test Item Value Reference Range Comments WHITE BLOOD CELL (test code=WBC) 11.9 K/mm3 4.5-12.5 RED BLOOD CELL (test code=RBC) 2.96 mill/mm3 3.7-5.2 HEMOGLOBIN (test code=HGB) 8.9 gram/dL 11.5-15.5 HEMATOCRIT (test code=HCT) 29.0 % 36.0-46.0 MEAN CELL VOLUME (test code=MCV) 98.0 fL 80-98 MEAN CELL HGB (test code=MCH) 30.1 picogram 27.0-33.0 MEAN CELL HGB CONCETRATION (test code=MCHC) 30.7 gram/dL 33.0-36.0 RED CELL DISTRIBUTION WIDTH (test code=RDW) 14.9 % 11.6-16.2 RED CELL DISTRIBUTION WIDTH SD (test code=RDW-SD) 52.9 fL 37.0-51.0 PLATELET COUNT (test code=PLT) 130 K/mm3 150-450 MEAN PLATELET VOLUME (test code=MPV) 12.5 fL 6.7-11.0 NEUTROPHIL % (test code=NT%) 81.6 % 39.0-69.0 IMMATURE GRANULOCYTE % (test code=IG%) 1.2 % 0.0-5.0 LYMPHOCYTE % (test code=LY%) 7.9 % 25.0-55.0 MONOCYTE % (test code=MO%) 8.1 % 0.0-10.0 EOSINOPHIL % (test code=EO%) 1.0 % 0.0-5.0 BASOPHIL % (test code=BA%) 0.2 % 0.0-1.0 NUCLEATED RBC % (test code=NRBC%) 0.8 % 0-0 NEUTROPHIL # (test code=NT#) 9.75 K/mm3 1.8-7.7 IMMATURE GRANULOCYTE # (test code=IG#) 0.14 x10 3/uL 0-0.03 LYMPHOCYTE # (test code=LY#) 0.94 K/mm3 1.0-5.0 MONOCYTE # (test code=MO#) 0.97 K/mm3 0-0.8 EOSINOPHIL # (test code=EO#) 0.12 K/mm3 0.0-0.5 BASOPHIL # (test code=BA#) 0.02 K/mm3 0.0-0.2 NUCLEATED RBC # (test code=NRBC#) 0.09 K/mm3 0.0-0.1 [id number] 22:05:00* Test Item Value Reference Range Comments GLUBED (test code=GLUBED) 144 mg/dL 74-106 Performed by certified plastics production machine operator at [facility] [id number] 17:49:00* Test Item Value Reference Range Comments GLUBED (test code=GLUBED) 197 mg/dL 74-106 Performed by certified plastics production machine operator at [facility] [id number] 12:39:00* Test Item Value Reference Range Comments GLUBED (test code=GLUBED) 147 mg/dL 74-106 Performed by certified plastics production machine operator at [facility] [id number] 07:00:00* Test Item Value Reference Range Comments GLUBED (test code=GLUBED) 121 mg/dL 74-106 Performed by certified plastics production machine operator at [facility] COMPREHENSIVE METABOLIC [id number] 05:38:00* Test Item Value Reference Range Comments SODIUM (test code=NA) 143 mmol/L 136-145 POTASSIUM (test code=K) 3.8 mmol/L 3.5-5.1 CHLORIDE (test code=CL) 102.0 mmol/L 98-107 CARBON DIOXIDE (test code=CO2) 28.0 mmol/L 21-32 ANION GAP (test code=GAP) 16.8 10-20 GLUCOSE (test code=GLU) 118 mg/dL 74-106 BLOOD UREA NITROGEN (test code=BUN) 41 mg/dL 7-18 RESULT VERIFIED BY REPEAT ANALYSIS GLOMERULAR FILTRATION RATE (test code=GFR) 9 mL/min >=60 Estimated GFR by using Modified MDRD formula.Chronic kidney disease is defined as either kidney damageor GFR <60 mL/min/1.73 m2 for >3 months. CREATININE (test code=CREAT) 4.70 mg/dL 0.55-1.02 Note change in reference range due to change in reagent. BUN/CREATININE RATIO (test code=BUN/CREA) 8.7 10-20 TOTAL PROTEIN (test code=PROT) 4.9 gram/dL 6.4-8.2 ALBUMIN (test code=ALB) 2.0 g/dL 3.4-5.0 GLOBULIN (test code=GLOB) 2.9 gram/dL 2.7-4.2 ALBUMIN/GLOBULIN RATIO (test code=A/G) 0.7 0.75-1.50 CALCIUM (test code=CA) 7.3 mg/dL 8.5-10.1 BILIRUBIN TOTAL (test code=BILT) 0.70 mg/dL 0.0-1.0 SGOT/AST (test code=AST) 68 IUnit/L 15-37 SGPT/ALT (test code=ALT) 30 IUnit/L 12-78 ALKALINE PHOSPHATASE TOTAL (test code=ALKP) 134 IUnit/L 45-117 Note change in reference range due to change in reagent. COMPREHENSIVE METABOLIC [id number] 05:24:00* Test Item Value Reference Range Comments SODIUM (test code=NA) 143 mmol/L 136-145 POTASSIUM (test code=K) 3.8 mmol/L 3.5-5.1 CHLORIDE (test code=CL) 102.0 mmol/L 98-107 CARBON DIOXIDE (test code=CO2) mmol/L 21-32 ANION GAP (test code=GAP) 10-20 GLUCOSE (test code=GLU) mg/dL 74-106 BLOOD UREA NITROGEN (test code=BUN) mg/dL 7-18 GLOMERULAR FILTRATION RATE (test code=GFR) mL/min >=60 CREATININE (test code=CREAT) mg/dL 0.55-1.02 BUN/CREATININE RATIO (test code=BUN/CREA) 10-20 TOTAL PROTEIN (test code=PROT) gram/dL 6.4-8.2 ALBUMIN (test code=ALB) g/dL 3.4-5.0 GLOBULIN (test code=GLOB) gram/dL 2.7-4.2 ALBUMIN/GLOBULIN RATIO (test code=A/G) 0.75-1.50 CALCIUM (test code=CA) mg/dL 8.5-10.1 BILIRUBIN TOTAL (test code=BILT) mg/dL 0.0-1.0 SGOT/AST (test code=AST) IUnit/L 15-37 SGPT/ALT (test code=ALT) IUnit/L 12-78 ALKALINE PHOSPHATASE TOTAL (test code=ALKP) IUnit/L 45-117 CBC W/AUTO [id number] 05:07:00* Test Item Value Reference Range Comments WHITE BLOOD CELL (test code=WBC) 12.6 K/mm3 4.5-12.5 RED BLOOD CELL (test code=RBC) 3.38 mill/mm3 3.7-5.2 HEMOGLOBIN (test code=HGB) 10.3 gram/dL 11.5-15.5 RESULT VERIFIED BY REPEAT ANALYSIS HEMATOCRIT (test code=HCT) 32.6 % 36.0-46.0 MEAN CELL VOLUME (test code=MCV) 96.4 fL 80-98 MEAN CELL HGB (test code=MCH) 30.5 picogram 27.0-33.0 MEAN CELL HGB CONCETRATION (test code=MCHC) 31.6 gram/dL 33.0-36.0 RED CELL DISTRIBUTION WIDTH (test code=RDW) 15.1 % 11.6-16.2 RED CELL DISTRIBUTION WIDTH SD (test code=RDW-SD) 53.4 fL 37.0-51.0 PLATELET COUNT (test code=PLT) 118 K/mm3 150-450 MEAN PLATELET VOLUME (test code=MPV) 12.6 fL 6.7-11.0 NEUTROPHIL % (test code=NT%) 82.1 % 39.0-69.0 IMMATURE GRANULOCYTE % (test code=IG%) 1.1 % 0.0-5.0 LYMPHOCYTE % (test code=LY%) 7.7 % 25.0-55.0 MONOCYTE % (test code=MO%) 8.5 % 0.0-10.0 EOSINOPHIL % (test code=EO%) 0.5 % 0.0-5.0 BASOPHIL % (test code=BA%) 0.1 % 0.0-1.0 NUCLEATED RBC % (test code=NRBC%) 0.7 % 0-0 NEUTROPHIL # (test code=NT#) 10.38 K/mm3 1.8-7.7 IMMATURE GRANULOCYTE # (test code=IG#) 0.14 x10 3/uL 0-0.03 LYMPHOCYTE # (test code=LY#) 0.97 K/mm3 1.0-5.0 MONOCYTE # (test code=MO#) 1.07 K/mm3 0-0.8 EOSINOPHIL # (test code=EO#) 0.06 K/mm3 0.0-0.5 BASOPHIL # (test code=BA#) 0.01 K/mm3 0.0-0.2 NUCLEATED RBC # (test code=NRBC#) 0.09 K/mm3 0.0-0.1 MANUAL DIFF REQUIRED (test code=MDIFF) NO [id number] 23:53:00* Test Item Value Reference Range Comments GLUBED (test code=GLUBED) 139 mg/dL 74-106 Performed by certified plastics production machine operator at [facility] [id number] 15:06:00* Test Item Value Reference Range Comments GLUBED (test code=GLUBED) 228 mg/dL 74-106 Performed by certified plastics production machine operator at [facility] [id number] 11:10:00* Test Item Value Reference Range Comments GLUBED (test code=GLUBED) 268 mg/dL 74-106 Performed by certified plastics production machine operator at [facility] BASIC METABOLIC [id number] 07:17:00* Test Item Value Reference Range Comments SODIUM (test code=NA) 141 mmol/L 136-145 POTASSIUM (test code=K) 3.8 mmol/L 3.5-5.1 CHLORIDE (test code=CL) 95.0 mmol/L 98-107 CARBON DIOXIDE (test code=CO2) 34.0 mmol/L 21-32 ANION GAP (test code=GAP) 15.8 10-20 GLUCOSE (test code=GLU) 268 mg/dL 74-106 BLOOD UREA NITROGEN (test code=BUN) 67 mg/dL 7-18 GLOMERULAR FILTRATION RATE (test code=GFR) 6 mL/min >=60 Estimated GFR by using Modified MDRD formula.Chronic kidney disease is defined as either kidney damageor GFR <60 mL/min/1.73 m2 for >3 months. CREATININE (test code=CREAT) 6.70 mg/dL 0.55-1.02 Note change in reference range due to change in reagent. BUN/CREATININE RATIO (test code=BUN/CREA) 10.0 10-20 CALCIUM (test code=CA) 5.9 mg/dL 8.5-10.1 Results called to [id number] by LOW.AG1 04/28/18 0716Critical results verified and read back by Nurse? Y [id number] 07:17:00* Test Item Value Reference Range Comments PHOSPHORUS (test code=PHOS) 5.0 mg/dL 2.5-4.9 [id number] 07:17:00* Test Item Value Reference Range Comments MAGNESIUM (test code=MAG) 1.8 mg/dL 1.8-2.4 CBC W/AUTO [id number] 06:11:00* Test Item Value Reference Range Comments WHITE BLOOD CELL (test code=WBC) 8.3 K/mm3 4.5-12.5 RED BLOOD CELL (test code=RBC) 2.68 mill/mm3 3.7-5.2 HEMOGLOBIN (test code=HGB) 8.1 gram/dL 11.5-15.5 HEMATOCRIT (test code=HCT) 24.9 % 36.0-46.0 MEAN CELL VOLUME (test code=MCV) 92.9 fL 80-98 MEAN CELL HGB (test code=MCH) 30.2 picogram 27.0-33.0 MEAN CELL HGB CONCETRATION (test code=MCHC) 32.5 gram/dL 33.0-36.0 RED CELL DISTRIBUTION WIDTH (test code=RDW) 15.4 % 11.6-16.2 RED CELL DISTRIBUTION WIDTH SD (test code=RDW-SD) 52.5 fL 37.0-51.0 PLATELET COUNT (test code=PLT) 112 K/mm3 150-450 MEAN PLATELET VOLUME (test code=MPV) 12.9 fL 6.7-11.0 NEUTROPHIL % (test code=NT%) 83.2 % 39.0-69.0 IMMATURE GRANULOCYTE % (test code=IG%) 0.8 % 0.0-5.0 LYMPHOCYTE % (test code=LY%) 8.6 % 25.0-55.0 MONOCYTE % (test code=MO%) 7.2 % 0.0-10.0 EOSINOPHIL % (test code=EO%) 0.2 % 0.0-5.0 BASOPHIL % (test code=BA%) 0.0 % 0.0-1.0 NUCLEATED RBC % (test code=NRBC%) 1.1 % 0-0 RESULT VERIFIED BY REPEAT ANALYSIS NEUTROPHIL # (test code=NT#) 6.93 K/mm3 1.8-7.7 IMMATURE GRANULOCYTE # (test code=IG#) 0.07 x10 3/uL 0-0.03 LYMPHOCYTE # (test code=LY#) 0.72 K/mm3 1.0-5.0 MONOCYTE # (test code=MO#) 0.60 K/mm3 0-0.8 EOSINOPHIL # (test code=EO#) 0.02 K/mm3 0.0-0.5 BASOPHIL # (test code=BA#) 0.00 K/mm3 0.0-0.2 NUCLEATED RBC # (test code=NRBC#) 0.09 K/mm3 0.0-0.1 MANUAL DIFF REQUIRED (test code=MDIFF) NO [id number] 17:48:00* Test Item Value Reference Range Comments GLUBED (test code=GLUBED) 227 mg/dL 74-106 Performed by certified plastics production machine operator at [facility] - XR ABDOMEN AP 1 [id number] 15:26:00 FAX: Catalino Cartwright MD [place]: B St: ADM FAX: Laureano Meadows DO [phone] FAX: Tuan Constantino MD [phone] Name: SOCORRO MORA [facility] : 1950 Age/S: 67/F [address] [facility] Unit #: [id number] Loc: V.3 [place] [address] Phys: Tuan Constantino MD Acct: [id number] Dis Date: Status: ADM IN PH ONE #: [phone] Exam Date: 04/27/2018 1500 FAX #: [phone] Reason: NG TUBE EXAMS: CPT CODE: [id number] XR ABDOMEN AP 1 V 65925 REASON FOR EXA M: NG TUBE EXAM ORDER DATE: 04/27/2018 12:00 AM Danyelle duarte M.D.: Tuan Constantino MD PROCEDURE: - XR ABDOMEN AP 1 V COMPARISON: FINDINGS: One view of the abdomen obtained at 3:03 PM. Scattered fecal material seen in the colon. The small bowel is unremarkable. No evidence of organomegaly. No evidence of ascites IMPRESSION: The NG tube tip is in the stomach. Electronical ly Signed by Daniel Teague on 04/27/2018 at 1526 Reported and signed by: Brandon Teague M.D. CC: Catalino Mike MD; Laureano Barnett DO; Tuan Constantino MD Technologist: PRISCILA PrestonR; [facility] TECHNOLOGIST Trnscrd Date/Time/By: 04/27/2018 (1526) : By: Jose R.VTL Orig Print D/T: S: 04/27/2018 (7515) PAGE 1 Signed Report CBC W/AUTO DIFF 2018-04-27 10:42:00* Test Item Value Reference Range Comments WHITE BLOOD CELL (test code=WBC) 7.6 K/mm3 4.5-12.5 RED BLOOD CELL (test code=RBC) 2.82 mill/mm3 3.7-5.2 HEMOGLOBIN (test code=HGB) 8.4 gram/dL 11.5-15.5 HEMATOCRIT (test code=HCT) 25.7 % 36.0-46.0 MEAN CELL VOLUME (test code=MCV) 91.1 fL 80-98 MEAN CELL HGB (test code=MCH) 29.8 picogram 27.0-33.0 MEAN CELL HGB CONCETRATION (test code=MCHC) 32.7 gram/dL 33.0-36.0 RED CELL DISTRIBUTION WIDTH (test code=RDW) 15.7 % 11.6-16.2 RED CELL DISTRIBUTION WIDTH SD (test code=RDW-SD) 52.5 fL 37.0-51.0 PLATELET COUNT (test code=PLT) 131 K/mm3 150-450 MEAN PLATELET VOLUME (test code=MPV) 12.3 fL 6.7-11.0 NEUTROPHIL % (test code=NT%) 88.5 % 39.0-69.0 IMMATURE GRANULOCYTE % (test code=IG%) 0.5 % 0.0-5.0 LYMPHOCYTE % (test code=LY%) 5.9 % 25.0-55.0 MONOCYTE % (test code=MO%) 5.1 % 0.0-10.0 EOSINOPHIL % (test code=EO%) 0.0 % 0.0-5.0 BASOPHIL % (test code=BA%) 0.0 % 0.0-1.0 NUCLEATED RBC % (test code=NRBC%) 0.7 % 0-0 NEUTROPHIL # (test code=NT#) 6.74 K/mm3 1.8-7.7 IMMATURE GRANULOCYTE # (test code=IG#) 0.04 x10 3/uL 0-0.03 LYMPHOCYTE # (test code=LY#) 0.45 K/mm3 1.0-5.0 MONOCYTE # (test code=MO#) 0.39 K/mm3 0-0.8 EOSINOPHIL # (test code=EO#) 0.00 K/mm3 0.0-0.5 BASOPHIL # (test code=BA#) 0.00 K/mm3 0.0-0.2 NUCLEATED RBC # (test code=NRBC#) 0.05 K/mm3 0.0-0.1 MANUAL DIFF REQUIRED (test code=MDIFF) NO ARTERIAL BLOOD [id number] 10:30:00* Test Item Value Reference Range Comments ARTERIAL BLOOD GAS PH (test code=PHA) 7.48 7.35-7.45 ARTERIAL BLOOD GAS PCO2 (test code=PCO2A) 32.0 mm Hg 35-45 ARTERIAL BLOOD GAS PO2 (test code=PO2A) 80.4 mmHg 80-100 BICARBONATE TOTAL HCO3 (test code=HCO3) 23.1 mmol/L 23.0-27.0 BASE EXCESS (test code=CAS) -0.2 mmol/L -3.0-5.0 ABG O2 SATURATION (test code=SATA) 95.1 % 90.0-98.0 ABG TYPE (test code=TYPEA) Arterial FIO2 (test code=FIO2A) 32.0 ABG VENT RESP RATE (test code=RRA) 20.0 per min ABG SITE (test code=SITEA) Lt RADIAL ARTERY HEMATOCRIT (test code=HCT/ABG) 26 % 35-47 TOTAL HGB (test code=THB) 8.7 gram/dL 11.5-15.5 HGB O2 SAT (test code=HBOSAT) 94.3 % 94.00-98.00 CARBOXYHEMOGLOBIN (test code=HOHGBT) 0.3 %totalHg 0.5-1.5 Results called to and read back by dr waite 09:45 - 04/27/2018; by rosanne METHEMOGLOBIN (test code=METHGB) 0.5 % 0.0-1.50 O2 CONTENT (test code=O2CT) 11.7 % vol 18.0-22.0 - XR CHEST 1 [id number] 08:21:00 FAX: Catalino Cartwright MD [place]: B St: ADM FAX: Malik Henry FAX: Laureano Meadows DO [phone] Name: SOCORRO MORA [facility] : 1950 Age/S: 67/F [address] [facility] Unit #: [id number] Loc: V.3 [place] [address] Phys: Malik Henry Acct: [id number] Dis Date: Status: ADM IN PH ONE #: [phone] Exam Date: 04/27/2018519 FAX #: [phone] Reason: PNA EXAMS: CPT CODE: [id number] XR CHEST 1 V 56770 EXAM: Chest x- ray, one view; INFORMATION: Pneumonia; acute renal failure; IMPRESSION: 1. Bilateral basilar densities consistent with atelectatic changes. 2. Otherwise, no major change compared with yesterday's study; moderate cardiomegaly. 3. Well-positioned he modialysis catheter. at 0821 Reported and signed by: Antonio Goff M.D. CC: Catalino Mike MD; Malik Henry; Laureano Barnett DO Technologist: ROGER Hansen Trnmird Date/Time/By: (08) : By: [email or web address] Orig Print D/T: S: 04/27/2018 (0824) PAGE 1 Signed Report BASIC METABOLIC [id number] 05:59:00* Test Item Value Reference Range Comments SODIUM (test code=NA) 142 mmol/L 136-145 POTASSIUM (test code=K) 3.8 mmol/L 3.5-5.1 CHLORIDE (test code=CL) 105.0 mmol/L 98-107 CARBON DIOXIDE (test code=CO2) 20.0 mmol/L 21-32 ANION GAP (test code=GAP) 20.8 10-20 GLUCOSE (test code=GLU) 200 mg/dL 74-106 BLOOD UREA NITROGEN (test code=BUN) 114 mg/dL 7-18 GLOMERULAR FILTRATION RATE (test code=GFR) 4 mL/min >=60 Estimated GFR by using Modified MDRD formula.Chronic kidney disease is defined as either kidney damageor GFR <60 mL/min/1.73 m2 for >3 months. CREATININE (test code=CREAT) 10.10 mg/dL 0.55-1.02 RESULT VERIFIED BY REPEAT ANALYSISNote change in reference range due to change in reagent. BUN/CREATININE RATIO (test code=BUN/CREA) 11.3 10-20 CALCIUM (test code=CA) 6.3 mg/dL 8.5-10.1 Results called to [id number] by V.[email or web address].AG1 04/27/18 0556Critical results verified and read back by Nurse? Y [id number] 05:59:00* Test Item Value Reference Range Comments PHOSPHORUS (test code=PHOS) 7.1 mg/dL 2.5-4.9 [id number] 05:59:00* Test Item Value Reference Range Comments MAGNESIUM (test code=MAG) 1.9 mg/dL 1.8-2.4 BASIC METABOLIC [id number] 05:35:00* Test Item Value Reference Range Comments SODIUM (test code=NA) 142 mmol/L 136-145 POTASSIUM (test code=K) 3.8 mmol/L 3.5-5.1 CHLORIDE (test code=CL) 105.0 mmol/L 98-107 CARBON DIOXIDE (test code=CO2) mmol/L 21-32 ANION GAP (test code=GAP) 10-20 GLUCOSE (test code=GLU) mg/dL 74-106 BLOOD UREA NITROGEN (test code=BUN) 114 mg/dL 7-18 GLOMERULAR FILTRATION RATE (test code=GFR) mL/min >=60 CREATININE (test code=CREAT) mg/dL 0.55-1.02 BUN/CREATININE RATIO (test code=BUN/CREA) 10-20 CALCIUM (test code=CA) mg/dL 8.5-10.1 [id number] 05:35:00* Test Item Value Reference Range Comments PHOSPHORUS (test code=PHOS) mg/dL 2.5-4.9 [id number] 05:35:00* Test Item Value Reference Range Comments MAGNESIUM (test code=MAG) mg/dL 1.8-2.4 CBC W/AUTO [id number] 05:27:00* Test Item Value Reference Range Comments WHITE BLOOD CELL (test code=WBC) 7.4 K/mm3 4.5-12.5 RED BLOOD CELL (test code=RBC) 2.33 mill/mm3 3.7-5.2 HEMOGLOBIN (test code=HGB) 6.9 gram/dL 11.5-15.5 HEMATOCRIT (test code=HCT) 20.9 % 36.0-46.0 Results called to [id number] by [email or web address] 04/27/18 0526Critical results verified and read back by Nurse? Y MEAN CELL VOLUME (test code=MCV) 89.7 fL 80-98 MEAN CELL HGB (test code=MCH) 29.6 picogram 27.0-33.0 MEAN CELL HGB CONCETRATION (test code=MCHC) 33.0 gram/dL 33.0-36.0 RED CELL DISTRIBUTION WIDTH (test code=RDW) 15.9 % 11.6-16.2 RED CELL DISTRIBUTION WIDTH SD (test code=RDW-SD) 52.8 fL 37.0-51.0 PLATELET COUNT (test code=PLT) 133 K/mm3 150-450 MEAN PLATELET VOLUME (test code=MPV) 13.4 fL 6.7-11.0 NEUTROPHIL % (test code=NT%) 86.5 % 39.0-69.0 IMMATURE GRANULOCYTE % (test code=IG%) 0.5 % 0.0-5.0 LYMPHOCYTE % (test code=LY%) 5.8 % 25.0-55.0 MONOCYTE % (test code=MO%) 7.2 % 0.0-10.0 EOSINOPHIL % (test code=EO%) 0.0 % 0.0-5.0 BASOPHIL % (test code=BA%) 0.0 % 0.0-1.0 NUCLEATED RBC % (test code=NRBC%) 0.5 % 0-0 NEUTROPHIL # (test code=NT#) 6.41 K/mm3 1.8-7.7 IMMATURE GRANULOCYTE # (test code=IG#) 0.04 x10 3/uL 0-0.03 LYMPHOCYTE # (test code=LY#) 0.43 K/mm3 1.0-5.0 MONOCYTE # (test code=MO#) 0.53 K/mm3 0-0.8 EOSINOPHIL # (test code=EO#) 0.00 K/mm3 0.0-0.5 BASOPHIL # (test code=BA#) 0.00 K/mm3 0.0-0.2 NUCLEATED RBC # (test code=NRBC#) 0.04 K/mm3 0.0-0.1 BASIC METABOLIC [id number] 05:14:00* Test Item Value Reference Range Comments SODIUM (test code=NA) 142 mmol/L 136-145 POTASSIUM (test code=K) 3.8 mmol/L 3.5-5.1 CHLORIDE (test code=CL) 105.0 mmol/L 98-107 CARBON DIOXIDE (test code=CO2) mmol/L 21-32 ANION GAP (test code=GAP) 10-20 GLUCOSE (test code=GLU) mg/dL 74-106 BLOOD UREA NITROGEN (test code=BUN) mg/dL 7-18 GLOMERULAR FILTRATION RATE (test code=GFR) mL/min >=60 CREATININE (test code=CREAT) mg/dL 0.55-1.02 BUN/CREATININE RATIO (test code=BUN/CREA) 10-20 CALCIUM (test code=CA) mg/dL 8.5-10.1 [id number] 05:14:00* Test Item Value Reference Range Comments PHOSPHORUS (test code=PHOS) mg/dL 2.5-4.9 [id number] 05:14:00* Test Item Value Reference Range Comments MAGNESIUM (test code=MAG) mg/dL 1.8-2.4 CALCIUM [id number] 05:12:00* Test Item Value Reference Range Comments CALCIUM IONIZED (test code=CHANTEL) 0.90 mmol/L 1.12-1.32 CBC W/O [id number] 20:59:00* Test Item Value Reference Range Comments WHITE BLOOD CELL (test code=WBC) 7.6 K/mm3 4.5-12.5 RED BLOOD CELL (test code=RBC) 2.46 mill/mm3 3.7-5.2 HEMOGLOBIN (test code=HGB) 7.2 gram/dL 11.5-15.5 HEMATOCRIT (test code=HCT) 22.6 % 36.0-46.0 MEAN CELL VOLUME (test code=MCV) 91.9 fL 80-98 MEAN CELL HGB (test code=MCH) 29.3 picogram 27.0-33.0 MEAN CELL HGB CONCETRATION (test code=MCHC) 31.9 gram/dL 33.0-36.0 RED CELL DISTRIBUTION WIDTH (test code=RDW) 16.0 % 11.6-16.2 PLATELET COUNT (test code=PLT) 140 K/mm3 150-450 MEAN PLATELET VOLUME (test code=MPV) 12.6 fL 6.7-11.0 - CT ABD PELVIS W/O [id number] 19:47:00 Name: SOCORRO MORA [facility] : 1950 Age/S: 67 / F [address] [facility] Unit #: [id number] Loc: [place] [address] Phys: Shi Murillo Acct: [id number] Dis Date: Status: ADM IN PHONE #: [phone] Exam Date: 04/26/2018 191 FAX #: [phone] Reason: FOBT pos, r/o GIB, anemia EXAMS: CPT CODE: [id number] CT ABD PELVIS W/O CONT 28082 REASON FOR EXAM: FOBT pos, r/o GIB, anemia EXAM ORDER DATE: 04/26/2018 3:34 PM Ordering Daniel: JONA Silverman PROCEDURE: - CT ABD PELVIS W/O CONT COMPARISON: FINDINGS: CT images of the abdomen and pelvis were obtained without IV and without oral contrast at 5mm. Dose reduction techniques were applied The liver, spleen, pancreas are grossly within normal limits. The kidneys are atrophic. The urinary bladder is contracted with a Funes catheter present. Nonspecific atherosclerotic disease of the abdominal aorta. The colon, small bowel, and stomach are within normal limits without evidence of obstruction. No evidence of free air or free fluid. The uterus is atrophic with probable large uterine fibroid (6 cm) in the fundus. Dystrophic calcification seen in the right ovary. IMPRESSION: 1. Moderate bilateral pleural effusions larger on the left 2. Nonspecific minimal distention of the gallbladder. 3. No acute findings in the abdomen at 1947 Reported and signed by: Brandon Teague M.D. CC: Catalino Mike MD; Laureano Barnett DO; Shi Murillo Technolo gist:Chanara Arango RT(R); SUSHMA W CTDI: DLP: Trnscb Date/Time: 04/26/2018 (1946) [email or web address] Orig Print D/T: S: 04/26/2018 (1949) CTDI: DLP: PAGE 1 Signed Report FE W/TOTAL IRON BINDING CAP.2018-04-26 18:16:00* Test Item Value Reference Range Comments SERUM IRON (test code=IRON) 29 ug/dL 50-175 TOTAL IRON BINDING CAPACITY (test code=TIBC) 113 mcg/dL 250-450 IRON SATURATION (test code=FESAT) 25.66 % 13-45 HGB [id number] 15:07:00* Test Item Value Reference Range Comments HEMOGLOBIN (test code=HGB) 7.3 gram/dL 11.5-15.5 HEMATOCRIT (test code=HCT) 23.0 % 36.0-46.0 UR SMEAR EOSINOPHIL [id number] 14:27:00* Test Item Value Reference Range Comments UR SMEAR EOSINOPHIL COUNT (test code=EOSCTU) NONE SEEN per HPF NONE SEEN UR NA,[id number] 14:27:00* Test Item Value Reference Range Comments UR NA,RANDOM (test code=JADE) 53 mmol/L 20-110 UR PROTEIN [id number] 14:27:00* Test Item Value Reference Range Comments UR PROTEIN RANDOM (test code=PROTU) 318.2 mg/dL 0.0-11.9 Protein levels may be falsely elevated in patients withelevated level of aminoglycoside antibiotics in CSF and inhighly concentrated urine specimens. If false elevation issuspected, contact lab for alternated testing technique. UR CREATININE [id number] 14:27:00* Test Item Value Reference Range Comments UR CREATININE RANDOM (test code=CREATU) 94.0 mg/dL 30-125 UR SMEAR EOSINOPHIL [id number] 13:22:00* Test Item Value Reference Range Comments UR SMEAR EOSINOPHIL COUNT (test code=EOSCTU) per HPF NONE SEEN UR NA,[id number] 13:22:00* Test Item Value Reference Range Comments UR NA,RANDOM (test code=JADE) 53 mmol/L 20-110 UR PROTEIN [id number] 13:22:00* Test Item Value Reference Range Comments UR PROTEIN RANDOM (test code=PROTU) 318.2 mg/dL 0.0-11.9 Protein levels may be falsely elevated in patients withelevated level of aminoglycoside antibiotics in CSF and inhighly concentrated urine specimens. If false elevation issuspected, contact lab for alternated testing technique. UR CREATININE [id number] 13:22:00* Test Item Value Reference Range Comments UR CREATININE RANDOM (test code=CREATU) 94.0 mg/dL 30-125 UR SMEAR EOSINOPHIL [id number] 13:15:00* Test Item Value Reference Range Comments UR SMEAR EOSINOPHIL COUNT (test code=EOSCTU) per HPF NONE SEEN UR NA,[id number] 13:15:00* Test Item Value Reference Range Comments UR NA,RANDOM (test code=JADE) 53 mmol/L 20-110 UR PROTEIN [id number] 13:15:00* Test Item Value Reference Range Comments UR PROTEIN RANDOM (test code=PROTU) mg/dL 0.0-11.9 UR CREATININE [id number] 13:15:00* Test Item Value Reference Range Comments UR CREATININE RANDOM (test code=CREATU) mg/dL 30-125 AG HEPAT B [id number] 12:13:00* Test Item Value Reference Range Comments AG HEPAT B SURF (test code=HBSAG) Nonreactive Index Nonreactive [id number] 11:43:00* Test Item Value Reference Range Comments TROPONIN-I (test code=TROPI) 4.970 ng/mL 0-0.045 [id number] 11:23:00* Test Item Value Reference Range Comments GLUBED (test code=GLUBED) 144 mg/dL 74-106 Performed by certified plastics production machine operator at [facility] - XR CHEST 1 [id number] 11:20:00 FAX: Catalino Cartwright MD [place]: B St: ADM FAX: Laureano Meadows DO [phone] FAX: Tuan Constantino MD [phone] Name: SOCORRO MORA [facility] : 1950 Age/S: 67/F [address] [facility] Unit #: [id number] Loc: V.S03 [place] [address] Phys: Tuan Constantino MD Acct: [id number] Dis Date: Status: ADM IN ONE #: [phone] Exam Date: 04/26/2018 1109 FAX #: [phone] Reason: CENTRAL LINE PLACEMENT EXAMS: CPT CODE: [id number] XR CHEST 1 V 41763 HISTORY: Centr al line placement. COMPARISON: Previous day. Right j ugular catheter with the tip projected over the SVC without pneumothorax. No acute infiltrates, effusion or congestion is noted. Dependent changes. Cardiomegaly. IMPRESSION: No acute infiltrates, effusion or congestion. Right jugular catheter with the tip projected over the SVC. No pneumothorax. Elec tronically Signed by Daniel Yao on 04/26/2018 at 1120 Reported and signed by: Dc Yao M.D. CC: Karlo Mike MD; Laureano Barnett DO; Tuan Constantino MD Technologist: ROGER ADKINS JR Trnscrd Date/Time/By: 04/26/2018 (1120) : By: Jose R.TH4 Orig Print D/T: S: 04/26/2018 (1123) PAGE 1 Signed Report BASIC METABOLIC [id number] 10:43:00* Test Item Value Reference Range Comments SODIUM (test code=NA) 144 mmol/L 136-145 POTASSIUM (test code=K) 5.3 mmol/L 3.5-5.1 CHLORIDE (test code=CL) 113.0 mmol/L 98-107 CARBON DIOXIDE (test code=CO2) 13.0 mmol/L 21-32 ANION GAP (test code=GAP) 23.3 10-20 GLUCOSE (test code=GLU) 183 mg/dL 74-106 BLOOD UREA NITROGEN (test code=BUN) 163 mg/dL 7-18 GLOMERULAR FILTRATION RATE (test code=GFR) 3 mL/min >=60 Estimated GFR by using Modified MDRD formula.Chronic kidney disease is defined as either kidney damageor GFR <60 mL/min/1.73 m2 for >3 months. CREATININE (test code=CREAT) 14.60 mg/dL 0.55-1.02 Note change in reference range due to change in reagent. BUN/CREATININE RATIO (test code=BUN/CREA) 11.2 10-20 CALCIUM (test code=CA) 5.8 mg/dL 8.5-10.1 Results called to [id number] by DANNY 04/26/18 1041Critical results verified and read back by Nurse? Y ARTERIAL BLOOD [id number] 10:38:00* Test Item Value Reference Range Comments ARTERIAL BLOOD GAS PH (test code=PHA) 7.24 7.35-7.45 ARTERIAL BLOOD GAS PCO2 (test code=PCO2A) 23.0 mm Hg 35-45 Results called to and read back by Dr Waite 10:38 - 04/26/2018; by [id number] ARTERIAL BLOOD GAS PO2 (test code=PO2A) 140.5 mmHg 80-100 BICARBONATE TOTAL HCO3 (test code=HCO3) 9.6 mmol/L 23.0-27.0 Results called to and read back by Dr Waite 10:38 - 04/26/2018; by [id number] BASE EXCESS (test code=CAS) -16.3 mmol/L -3.0-5.0 Results called to and read back by Dr Waite 10:38 04/26/2018; by [id number] ABG O2 SATURATION (test code=SATA) 97.3 % 90.0-98.0 ABG TYPE (test code=TYPEA) Arterial FIO2 (test code=FIO2A) 36.0 ABG L/M (test code=L/M) 4.00 L/MIN ABG SITE (test code=SITEA) Rt BRACHIAL ARTERY MODIFIED ALLENS (test code=MODALL) Yes CHECK PERFORMED SODIUM (test code=NA/ABG) 140.9 mEq/L 135-148 POTASSIUM (test code=K/ABG) 4.8 mEq/L 3.5-4.5 CHLORIDE (test code=CL/ABG) 115 mEq/L 98-106 GLUCOSE (test code=GLU/ABG) 146 mg/dL 74-99 HEMATOCRIT (test code=HCT/ABG) 22 % 35-47 IONIZED CALCIUM (test code=CAIABG) 0.86 mmol/L 1.1-1.37 TOTAL HGB (test code=THB) 7.5 gram/dL 11.5-15.5 HGB O2 SAT (test code=HBOSAT) 96.4 % 94.00-98.00 CARBOXYHEMOGLOBIN (test code=HOHGBT) 0.3 %totalHg 0.5-1.5 Results called to and read back by Dr Waite 10:38 - 04/26/2018; by [id number] METHEMOGLOBIN (test code=METHGB) 0.6 % 0.0-1.50 O2 CONTENT (test code=O2CT) 10.5 % vol 18.0-22.0 BASIC METABOLIC [id number] 10:34:00* Test Item Value Reference Range Comments SODIUM (test code=NA) 144 mmol/L 136-145 POTASSIUM (test code=K) 5.3 mmol/L 3.5-5.1 CHLORIDE (test code=CL) 113.0 mmol/L 98-107 CARBON DIOXIDE (test code=CO2) mmol/L 21-32 ANION GAP (test code=GAP) 10-20 GLUCOSE (test code=GLU) mg/dL 74-106 BLOOD UREA NITROGEN (test code=BUN) mg/dL 7-18 GLOMERULAR FILTRATION RATE (test code=GFR) mL/min >=60 CREATININE (test code=CREAT) mg/dL 0.55-1.02 BUN/CREATININE RATIO (test code=BUN/CREA) 10-20 CALCIUM (test code=CA) mg/dL 8.5-10.1 CREATINE KINASE (CK)2018-04-26 09:45:00* Test Item Value Reference Range Comments CREATINE KINASE (CK) (test code=CK) 1142 IUnit/L 26-208 [id number] 09:45:00* Test Item Value Reference Range Comments CKMB (test code=CKMBT) 25.8 ng/mL 0-6.0 HGB [id number] 09:06:00* Test Item Value Reference Range Comments HEMOGLOBIN (test code=HGB) 7.5 gram/dL 11.5-15.5 HEMATOCRIT (test code=HCT) 23.7 % 36.0-46.0 LACTIC [id number] 09:04:00* Test Item Value Reference Range Comments LACTIC ACID (test code=LACT) 1.1 mmol/L 0.4-1.9 CALLED [id number] 04/26/18 0200BASIC METABOLIC [id number] 06:19:00* Test Item Value Reference Range Comments SODIUM (test code=NA) 145 mmol/L 136-145 POTASSIUM (test code=K) 5.3 mmol/L 3.5-5.1 CHLORIDE (test code=CL) 112.0 mmol/L 98-107 CARBON DIOXIDE (test code=CO2) 11.0 mmol/L 21-32 ANION GAP (test code=GAP) 27.3 10-20 GLUCOSE (test code=GLU) 167 mg/dL 74-106 BLOOD UREA NITROGEN (test code=BUN) 168 mg/dL 7-18 RESULT VERIFIED BY REPEAT ANALYSIS GLOMERULAR FILTRATION RATE (test code=GFR) 2 mL/min >=60 Estimated GFR by using Modified MDRD formula.Chronic kidney disease is defined as either kidney damageor GFR <60 mL/min/1.73 m2 for >3 months. CREATININE (test code=CREAT) 15.30 mg/dL 0.55-1.02 Note change in reference range due to change in reagent. BUN/CREATININE RATIO (test code=BUN/CREA) 11.0 10-20 CALCIUM (test code=CA) 6.3 mg/dL 8.5-10.1 Results called to [id number] by [email or web address] 04/26/18 0617Critical results verified and read back by Nurse? Y CREATINE KINASE (CK)2018-04-26 06:10:00* Test Item Value Reference Range Comments CREATINE KINASE (CK) (test code=CK) 1277 IUnit/L 26-208 [id number] 05:52:00* Test Item Value Reference Range Comments TROPONIN-I (test code=TROPI) 5.390 ng/mL 0-0.045 RESULT VERIFIED BY REPEAT ANALYSIS LIPID PROFILE (CORONARY RISK)2018-04-26 05:50:00* Test Item Value Reference Range Comments TRIGLYCERIDES (test code=TRIG) 194 mg/dL 20-150 CHOLESTEROL (test code=CHOL) 91 mg/dL 0-200 CHOLESTEROL/HDL RATIO (test code=CHOLHDL) 2.0 RATIO 0-4.9 RISK ASSOCIATED WITH CHOL/HDL RATIOS: Risk Male Female1/2 AVERAGE 3.43 3.27AVERAGE 4.97 4.442X AVERAGE 9.55 7.053X AVERAGE 23.39 11.04 REFERENCE VALUE IS RELATED TO RISK LEVELS ASRECOMMENDED BY THE [facility]MAN. HEART, LUNG, AND BLOOD INST. HDL CHOLESTEROL (test code=HDL) 34 mg/dL 40-60 LIPOPROTEIN LDL (test code=LDL) 36 mg/dL 100-129 Reference Interval: mg/dL mmol/L Optimal <100 <2.6Near/above optimal 100-129 2.6- 3.3Borderline High 130-159 3.4-4.1High 160-189 4.1-4.9Very High >=190 >=4.9=========This LDL result is a direct measurement.========= CBC W/AUTO [id number] 05:09:00* Test Item Value Reference Range Comments WHITE BLOOD CELL (test code=WBC) 10.6 K/mm3 4.5-12.5 RED BLOOD CELL (test code=RBC) 2.65 mill/mm3 3.7-5.2 HEMOGLOBIN (test code=HGB) 7.7 gram/dL 11.5-15.5 HEMATOCRIT (test code=HCT) 24.9 % 36.0-46.0 MEAN CELL VOLUME (test code=MCV) 94.0 fL 80-98 MEAN CELL HGB (test code=MCH) 29.1 picogram 27.0-33.0 MEAN CELL HGB CONCETRATION (test code=MCHC) 30.9 gram/dL 33.0-36.0 RED CELL DISTRIBUTION WIDTH (test code=RDW) 16.3 % 11.6-16.2 RED CELL DISTRIBUTION WIDTH SD (test code=RDW-SD) 55.8 fL 37.0-51.0 PLATELET COUNT (test code=PLT) 150 K/mm3 150-450 MEAN PLATELET VOLUME (test code=MPV) 13.4 fL 6.7-11.0 NEUTROPHIL % (test code=NT%) 90.8 % 39.0-69.0 IMMATURE GRANULOCYTE % (test code=IG%) 0.6 % 0.0-5.0 LYMPHOCYTE % (test code=LY%) 2.7 % 25.0-55.0 MONOCYTE % (test code=MO%) 5.9 % 0.0-10.0 EOSINOPHIL % (test code=EO%) 0.0 % 0.0-5.0 BASOPHIL % (test code=BA%) 0.0 % 0.0-1.0 NUCLEATED RBC % (test code=NRBC%) 0.3 % 0-0 NEUTROPHIL # (test code=NT#) 9.61 K/mm3 1.8-7.7 IMMATURE GRANULOCYTE # (test code=IG#) 0.06 x10 3/uL 0-0.03 LYMPHOCYTE # (test code=LY#) 0.29 K/mm3 1.0-5.0 MONOCYTE # (test code=MO#) 0.62 K/mm3 0-0.8 EOSINOPHIL # (test code=EO#) 0.00 K/mm3 0.0-0.5 BASOPHIL # (test code=BA#) 0.00 K/mm3 0.0-0.2 NUCLEATED RBC # (test code=NRBC#) 0.03 K/mm3 0.0-0.1 MANUAL DIFF REQUIRED (test code=MDIFF) NO PROCALCITONIN (PCT)2018-04-26 02:10:00* Test Item Value Reference Range Comments PROCALCITONIN (PCT) (test code=PROCAL) 0.52 ng/ml Concentration Interpretation (ng/mL) <0.51 Sepsis is not likely. Local bacterial infection is possible. (LOW RISK for progression to Sepsis) 0.51 - 2.00 Sepsis is possible, but other conditions are known to elevate PCT as well. (MODERATE RISK for progression to Sepsis) > 2.00 Sepsis is likely, unless other causes are known. (HIGH RISK for progression to Severe Sepsis or Septic Shock) 10.00 High likelihood of Severe Sepsis or Septic or higher Shock. *Increased PCT levels may not always be related to systemic bacterial infection.*Low PCT levels do not automatically exclude the presence of bacterial infection.*All results should be interpreted taking into account the patients history. - [employer] [id number] 02:04:00 Name: SOCORRO MORA [facility] : 1950 Age/S: 67 / F [address] [facility] Unit #: [id number] Loc: [place] [address] Phys: Tato Solares [employer]AD [employer] WORKER Acct: [id number] Dis Date: Status: ADM IN PHONE #: [phone] Exam Date: 04/25/2018 0024 FAX #: [phone] Reason: Renal Failure EXAMS: CPT CODE: [id number] [employer] L[place] [id number] LOCATION: Q15 HISTORY: 67-year-old female who presents with acute kidney injury. COMMENT: Sonographic imaging of this patient's retroperitoneum was performed. The right kidney measures 9.3 x 4.0 x 3.8 cm with an 8 mm cortical thickness. The left kidney measures 8.9 x 4.6 x 4.8 cm with a 17 mm cortical thickness. No cysts or masses are seen and there is no evidence of hydronephrosis or calcifications. Cortical echotexture in the right kidney is elevated, compatible with medical renal disease. Cortical echotexture the left kidney is unremarkable. The urinary bladder is decompressed by Funes catheter. IMPRESSION: Small kidneys are seen bilaterally. The right kidney exhibits increased echotexture suggestive of medical renal disease whereas the left kidney echotexture is unremarkable. at 0204 Reported and signed by: Suhsma Chavez M.D. CC: Catalino Mike MD; Laureano Barnett DO; Tato Solares NP Technologist: JUAN VIRK RDMS Trnscb Date/Time: 04/26/2018 (203) [email or web address] Orig Print D/T: S: 04/26/2018 (020) Probe: PAGE 1 Signed Report LACTIC [id number] 02:00:00* Test Item Value Reference Range Comments LACTIC ACID (test code=LACT) 2.2 mmol/L 0.4-1.9 Results called to [id number] by ULISES 04/26/18 0200Critical results verified and read back by Nurse? Y [id number] 01:57:00* Test Item Value Reference Range Comments TROPONIN-I (test code=TROPI) 5.460 ng/mL 0-0.045 RESULT VERIFIED BY REPEAT ANALYSIS COMMENTS TO LIME VAT TENDER: COLLECT 3 HOURS AFTER PREVIOUS SAMPLEBASIC METABOLIC [id number] 01:57:00* Test Item Value Reference Range Comments SODIUM (test code=NA) 147 mmol/L 136-145 POTASSIUM (test code=K) 5.5 mmol/L 3.5-5.1 CHLORIDE (test code=CL) 115.0 mmol/L 98-107 CARBON DIOXIDE (test code=CO2) 11.0 mmol/L 21-32 ANION GAP (test code=GAP) 26.5 10-20 GLUCOSE (test code=GLU) 99 mg/dL 74-106 BLOOD UREA NITROGEN (test code=BUN) 166 mg/dL 7-18 RESULT VERIFIED BY REPEAT ANALYSIS GLOMERULAR FILTRATION RATE (test code=GFR) 2 mL/min >=60 Estimated GFR by using Modified MDRD formula.Chronic kidney disease is defined as either kidney damageor GFR <60 mL/min/1.73 m2 for >3 months. CREATININE (test code=CREAT) 15.60 mg/dL 0.55-1.02 Note change in reference range due to change in reagent. BUN/CREATININE RATIO (test code=BUN/CREA) 10.6 10-20 CALCIUM (test code=CA) 6.5 mg/dL 8.5-10.1 [id number] 01:44:00* Test Item Value Reference Range Comments AMMONIA (test code=AMM) 29 umol/L 11-32 AG STREPTOCOCCUS [id number] 23:39:00* Test Item Value Reference Range Comments AG STREPTOCOCCUS PNEUMO (test code=STREPPNAG) NEGATIVE NEGATIVE LEGIONELLA ANTIGEN,URINE,[id number] 23:39:00* Test Item Value Reference Range Comments LEGIONELLA ANTIGEN,URINE,KARLO (test code=LEGAGUR) NEGATIVE NEGATIVE - XR TIBIA/FIBULA 2 V [id number] 23:02:00 FAX: Manju SubramanianAnibalLaureano allen [phone] [place]: St: ADM FAX: Imelda Zabala [phone] Name: SOCORRO MORA [facility] : 1950 Age/S: 67/F [address] [facility] Unit #: [id number] Loc: [address] [address] Phys: Imelda Dikcson MD Acct: [id number] Dis Date: Status: ADM IN PHONE #: [phone] Exam Date: 04/25/2018 2255 FAX #: [phone] Reason: ttp EXAMS: CPT CODE: [id number] XR TIBIA/FIBULA 2 [place] [id number] REASON FOR EXAM: ttp EXAM ORDER DATE: 04/25/2018 10:20 PM Ordering Daniel: Imelda Dickson MD PROCEDURE: - XR TIBIA/FIBULA 2 V RT FINDINGS: 4 views of the right lower extremity were obtained. The osseous structures a re unremarkable in size and shape. The joint spaces are maintained. No bob dence of fracture. The right knee joint and ankle joint are grossly intac t IMPRESSION: Unremarkable right tibia and fibula El ectronically Signed by Daniel Teague on 04/25/2018 at 2302 Reported and signed by: Brandon Teague M.D. CC: Laureano Barnett DO; Imelda Dickson MD Technologist: UNA PAIZ; Ming Gold, RT(R Trnscrd Date/Time/By: 04/25/2018 (2301) : By: tRONAL R.VTL Orig Print D/T: S: 04/25/2018 (9896) PAG E 1 Signed Report - XR PELVIS 1/2 [id number] 23:01:00 FAX: Laureano Meadows DO [phone] [place]: St: ADM FAX: Imelda Zabala [phone] Name: SOCORRO MORA [facility] : 1950 Age/S: 67/F [address] [facility] Unit #: [id number] Loc: [address] [address] Phys: Imelda Dickson MD Acct: [id number] Dis Date: Status: ADM IN PHONE #: [phone] Exam Date: 04/25/2018 2258 FAX #: [phone] Reason: ttp EXAMS: CPT CODE: [id number] XR PELVIS 1/2 VIEWS 76959 REASON FOR EXAM: ttp EXAM ORDER DATE: 04/25/2018 10:20 PM Ordering Daniel: Imelda Dickson MD PROCEDURE: - XR PELVIS 1/2 VIEWS FINDINGS: 1 vie w of the pelvis was obtained. The osseous structures are unremarkable in s ize and shape with a gamma nail identified in the left hip. The joint spac es are maintained. No evidence of acute fracture. IMPRESSI ON: Status post ORIF of the left hip. No acute findings Electronica lly Signed by Daniel Teague on 04/25/2018 at 2301 Reporte d and signed by: Brandon Teague M.D. CC: Laureano Barnett DO; Imelda Cifuentes MD Technologist: UNA PAIZ; Ming Gold, RT(R Trnscrd Date/Time/By: 04/25/2018 (2300) : By: t.SDR.VTL Orig Print D/T: S: 04/25/2018 (2916) PAGE 1 Signed Report - XR FEMUR MIN 2 VWS [id number] 23:00:00 FAX: Laureano Meadows DO [phone] [place]: St: ADM FAX: Imelda Zabala [phone] Name: SOCORRO MORA [facility] : 1950 Age/S: 67/F [address] [facility] Unit #: [id number] Loc: [place] [address] Phys: Imelda Dickson MD Acct: [id number] Dis Date: Status: ADM IN PHONE #: [phone] Exam Date: 04/25/20182257 FAX #: [phone] Reason: ttp EXAMS: CPT CODE: [id number] XR FEMUR MIN 2 [place] [address] REASON FOR EXAM: ttp EXAM ORDER DATE: 04/25/2018 10:20 PM Ordering Daniel: Imelda Dickson MD PROCEDURE: - XR FEMUR MIN 2 VWS RT FINDINGS: 4 views of the right femur were obtained. The osseous structures are unremarkable in size and shape. The joint spaces are maintained. No evidence of fracture. There is normal alignment of the right hip joint IMPRESSION: Unremarkable right femur at 2300 Reported and signed by: Brandon Teague M.D. CC: Laureano Barnett DO; Imelda Dickson MD Technologist: UNA PAIZ; Ming Gold, RT(R Trnscrd Date/Time/By: 04/25/2018 (230) : By: RosieR.VTL Orig Print D/T: S: 04/25/2018 (2294) PAGE 1 Signed Report - XR FOOT 2 VIEWS [id number] 23:00:00 FAX: Laureano Meadows DO [phone] [place]: St: ADM FAX: Imelda Zabala [phone] Name: SOCORRO MORA [facility] : 1950 Age/S: 67/F [address] [facility] Unit #: [id number] Loc: [place] [address] Phys: Imelda Dickson MD Acct: [id number] Dis Date: Status: ADM IN PHONE #: [phone] Exam Date: 04/25/20182257 FAX #: [phone] Reason: ttp EXAMS: CPT CODE: [id number] XR FOOT [address] [place] [id number] REASON FOR EXAM: ttp EXAM ORDER DATE: 04/25/2018 10:20 PM Ordering Daniel: Imelda Dickson MD PROCEDURE: - XR FOOT 2 VIEWS RT FINDINGS: 2 view s of the right foot were obtained. The osseous structures are unremarkable in size and shape. The joint spaces are maintained. No evidence of fractu re. The phalanges are intact. The metatarsal and tarsal bones are unrema rkable IMPRESSION: Unremarkable right foot Electroni mohinder Signed by Daniel Teague on 04/25/2018 at 2300 Repor nikko and signed by: Brandon Teague M.D. CC: Laureano Barnett DO; Imelda Henriquez MD Technologist: UNA PAIZ; Ming Gold, RT(R Trnscrd Date/Time/By: 04/25/2018 (2300) : By: Pro Orig Print D/T: S: 04/25/2018 (4325) PAGE 1 Signed Report ARTERIAL BLOOD GAS 2018-04-25 22:41:00* Test Item Value Reference Range Comments ARTERIAL BLOOD GAS PH (test code=PHA) 7.13 7.35-7.45 Results called to and read back by calebat 22:39 - 04/25/2018; by sinai livestock feeder ARTERIAL BLOOD GAS PCO2 (test code=PCO2A) 20.8 mm Hg 35-45 Results called to and read back by calebat 22:39 - 04/25/2018; by sinai livestock feeder ARTERIAL BLOOD GAS PO2 (test code=PO2A) 94.0 mmHg 80-100 BICARBONATE TOTAL HCO3 (test code=HCO3) 6.8 mmol/L 23.0-27.0 Results called to and read back by calebat 22:39 - 04/25/2018; by [employer]inai livestock feeder BASE EXCESS (test code=CAS) -20.6 mmol/L -3.0-5.0 Results called to and read back by calebat 22:39 - 04/25/2018; by sinai livestock feeder ABG O2 SATURATION (test code=SATA) 94.0 % 90.0-98.0 ABG TYPE (test code=TYPEA) Arterial FIO2 (test code=FIO2A) 36.0 ABG SITE (test code=SITEA) Rt BRACHIAL ARTERY HEMATOCRIT (test code=HCT/ABG) 25 % 35-47 TOTAL HGB (test code=THB) 8.5 gram/dL 11.5-15.5 HGB O2 SAT (test code=HBOSAT) 92.9 % 94.00-98.00 CARBOXYHEMOGLOBIN (test code=HOHGBT) 0.3 %totalHg 0.5-1.5 Results called to and read back by calebat 22:39 - 04/25/2018; by sinai smith METHEMOGLOBIN (test code=METHGB) 0.9 % 0.0-1.50 O2 CONTENT (test code=O2CT) 11.3 % vol 18.0-22.0 DRUGS OF ABUSE SCREEN [id number] 22:15:00* Test Item Value Reference Range Comments UA PH DIPSTICK (test code=SUE) 7.0 5.0-8.0 URN COCAINE (test code=COCAURN) NEGATIVE <300 ng/mL URN CANNABINOIDS (test code=CANNABURN) NEGATIVE <50 ng/mL URN AMPHETAMINE (test code=AMPHETURN) NEGATIVE <1000 ng/mL URN BARBITURATE (test code=BARBITURN) NEGATIVE <200 ng/mL URN BENZODIAZEPINE (test code=BENZOURN) NEGATIVE <200 ng/mL URN OPIATES (test code=OPIATURN) NEGATIVE <300 ng/mL URN PHENCYCLIDINE (PCP) (test code=PHENCURN) NEGATIVE <25 ng/mL URN METHADONE (test code=METHAURN) NEGATIVE <300 ng/mL [id number] 22:07:00* Test Item Value Reference Range Comments ALCOHOL (test code=ALC) 4 mg/dL 0.0-3.0 INTERPRETIVE DATA NOTE: POSITIVE SCREENING RESULTS SHOULD BE CONSIDERED PRESUMPTIVE.WHEN COLLECTED FOR MEDICAL PURPOSES ONLY. SPECIMEN WILL NOTBE COLLECTED BY CHAIN OF CUSTODY.IF A CONFIRMATION OF POSITIVE RESULTS IS DESIRED, ACONFIRMATION TEST MUST BE REQUESTED BY THE PHYSICIAN AT ANADDITIONAL CHARGE TO THE PATIENT. DRUGS OF ABUSE SCREEN [id number] 21:51:00* Test Item Value Reference Range Comments UA PH DIPSTICK (test code=SUE) 7.0 5.0-8.0 URN COCAINE (test code=COCAURN) <300 ng/mL URN CANNABINOIDS (test code=CANNABURN) <50 ng/mL URN AMPHETAMINE (test code=AMPHETURN) <1000 ng/mL URN BARBITURATE (test code=BARBITURN) <200 ng/mL URN BENZODIAZEPINE (test code=BENZOURN) <200 ng/mL URN OPIATES (test code=OPIATURN) <300 ng/mL URN PHENCYCLIDINE (PCP) (test code=PHENCURN) <25 ng/mL URN METHADONE (test code=METHAURN) <300 ng/mL BASIC METABOLIC [id number] 21:26:00* Test Item Value Reference Range Comments SODIUM (test code=NA) 144 mmol/L 136-145 POTASSIUM (test code=K) 6.0 mmol/L 3.5-5.[address] DICKSON by V.[facility].CF 04/25/185Critical results verified and read back by Nurse? Y CHLORIDE (test code=CL) 115.0 mmol/L 98-107 CARBON DIOXIDE (test code=CO2) 7.0 mmol/L 21-32 ANION GAP (test code=GAP) 28.0 10-20 GLUCOSE (test code=GLU) 112 mg/dL 74-106 BLOOD UREA NITROGEN (test code=BUN) 180 mg/dL 7-18 GLOMERULAR FILTRATION RATE (test code=GFR) 2 mL/min >=60 Estimated GFR by using Modified MDRD formula.Chronic kidney disease is defined as either kidney damageor GFR <60 mL/min/1.73 m2 for >3 months. CREATININE (test code=CREAT) 16.40 mg/dL 0.55-1.02 Note change in reference range due to change in reagent. BUN/CREATININE RATIO (test code=BUN/CREA) 11.0 10-20 CALCIUM (test code=CA) 6.6 mg/dL 8.5-10.1 HEPATIC FUNCTION [id number] 21:26:00* Test Item Value Reference Range Comments TOTAL PROTEIN (test code=PROT) 6.5 gram/dL 6.4-8.2 ALBUMIN (test code=ALB) 2.6 g/dL 3.4-5.0 GLOBULIN (test code=GLOB) 3.9 gram/dL 2.7-4.2 ALBUMIN/GLOBULIN RATIO (test code=A/G) 0.7 0.75-1.50 BILIRUBIN TOTAL (test code=BILT) 0.60 mg/dL 0.0-1.0 BILIRUBIN DIRECT (test code=BILD) 0.23 mg/dL 0.0-0.20 SGOT/AST (test code=AST) 59 IUnit/L 15-37 SGPT/ALT (test code=ALT) 14 IUnit/L 12-78 ALKALINE PHOSPHATASE TOTAL (test code=ALKP) 58 IUnit/L 45-117 Note change in reference range due to change in reagent. CREATINE KINASE (CK)2018-04-25 21:26:00* Test Item Value Reference Range Comments CREATINE KINASE (CK) (test code=CK) 1322 IUnit/L 26-208 [id number] 21:26:00* Test Item Value Reference Range Comments LIPASE (test code=LIP) 148 U/L 73.0-393.0 [id number] 21:26:00* Test Item Value Reference Range Comments TROPONIN-I (test code=TROPI) 6.570 ng/mL 0-0.045 Results called to Harry MARROQUIN V.LAB. 04/25/18 2125Critical results verified and read back by Nurse? Y URINALYSIS [id number] 21:05:00* Test Item Value Reference Range Comments UA COLOR (test code=COLU) YELLOW YELLOW UA APPEARANCE (test code=APPU) Cloudy CLEAR UA GLUCOSE DIPSTICK (test code=DGLUU) NEGATIVE mg/dL NEGATIVE UA BILIRUBIN DIPSTICK (test code=BILU) NEGATIVE mg/dL NEGATIVE UA KETONE DIPSTICK (test code=KETU) 5 (Trace) mg/dL NEGATIVE UA SPECIFIC GRAVITY (test code=SGU) 1.013 1.001-1.035 UA BLOOD DIPSTICK (test code=ELBA) 1+ (Small) NEGATIVE UA PH DIPSTICK (test code=SUE) 7.0 5.0-8.0 UA PROTEIN DIPSTICK (test code=PROU) >500 (3+) mg/dL NEGATIVE UA UROBILINIOGEN DIPSTICK (test code=URO) NEGATIVE mg/dL NEGATIVE UA NITRITE DIPSTICK (test code=MATTHEW) NEGATIVE NEGATIVE UA LEUKOCYTE ESTERASE W REFLEX (test code=LEUUR) 3+ NEGATIVE UA WBC (test code=WBCU) >50 #/HPF 0-5 UA RBC (test code=RBCU) >20 #/HPF 0-5 UA WBC CLUMPS (test code=WBCUCL) >10 /HPF NONE UA EPITHELIAL CELLS (test code=EPIU) FEW per HPF FEW UA BACTERIA (test code=BACU) FEW #/HPF NONE Urine Source? Clean CatchURINALYSIS [id number] 21:03:00* Test Item Value Reference Range Comments UA COLOR (test code=COLU) YELLOW YELLOW UA APPEARANCE (test code=APPU) Cloudy CLEAR UA GLUCOSE DIPSTICK (test code=DGLUU) NEGATIVE mg/dL NEGATIVE UA BILIRUBIN DIPSTICK (test code=BILU) NEGATIVE mg/dL NEGATIVE UA KETONE DIPSTICK (test code=KETU) 5 (Trace) mg/dL NEGATIVE UA SPECIFIC GRAVITY (test code=SGU) 1.013 1.001-1.035 UA BLOOD DIPSTICK (test code=ELBA) 1+ (Small) NEGATIVE UA PH DIPSTICK (test code=SUE) 7.0 5.0-8.0 UA PROTEIN DIPSTICK (test code=PROU) >500 (3+) mg/dL NEGATIVE UA UROBILINIOGEN DIPSTICK (test code=URO) NEGATIVE mg/dL NEGATIVE UA NITRITE DIPSTICK (test code=MATTHEW) NEGATIVE NEGATIVE UA LEUKOCYTE ESTERASE W REFLEX (test code=LEUUR) 3+ NEGATIVE UA WBC (test code=WBCU) per HPF 0-5 Urine Source? Clean [id number] 20:33:00* Test Item Value Reference Range Comments GLUBED (test code=GLUBED) 74 mg/dL 74-106 Performed by certified plastics production machine operator at [facility] PROTHROMBIN [id number] 20:24:00* Test Item Value Reference Range Comments PROTHROMBIN TIME PATIENT (test code=PTP) 12.8 seconds 9.0-14.0 INTERNATIONAL NORMAL RATIO (test code=INR) 1.1 0.8-1.2 The therapeutic range for oral anticoagulant therapy formost indications is an international normalized ratio (INR)of between 2.0 and 3.0. The recommended therapeutic INRrange for various clinical situations is listed below: Clinical Situation INR range Pulmonary e mbolism treatment (2.0-3.0)Venous thrombosis treatmentVenous thrombosis prophylaxis (high risk surgery)Prevention of systemic embolism from: Acute myocardial infarction Valvular heart disease Atrial fibrillation Mechanical prosthetic heart valves (2.5-3.5) IS PATIENT ON ANTICOAGULANTS? NTHROMBOPLASTIN TIME [id number] 20:24:00* Test Item Value Reference Range Comments THROMBOPLASTIN TIME PARTIAL (test code=PTT) 32.5 seconds 25.0-36.5 IS PATIENT ON ANTICOAGULANTS? N- CT HEAD/BRAIN W/O [id number] 20:23:00 Name: SOCORRO MORA [facility] : 1950 Age/S: 67 / F [address] [facility] Unit #: [id number] Loc: [place] [address] Phys: Toni Dickson MD Acct: [id number] Di s Date: Status: PRE ER PHONE #: [phone] Exam Date: 04/25/20182016 FAX #: Reason: Altered Mental Status EXAMS: CPT CODE: [id number] CT HEAD/BRAIN W/O CONT 42329 REASON FOR EXAM: Altered Mental Status EXAM ORDER DATE: 04/25/2018 6:55 PM Ordering M.DMitchell: Imelda Dickson MD PROCEDURE: - CT HEAD/BR AIN W/O CONT COMPARISON: FINDINGS: CT images of the brain were obtained without IV contrast. Dose reduction techniques were a pplied. The brain parenchyma is within normal limits. The macias-whi te matter delineation is unremarkable. The ventricles, cisterns, and sulci are unremarkable. There is no evidence of hemorrhage, mass, mass effect. There is no evidence of acute or old infarct. The calvarium is intact. IMPRESSION: Unremarkable brain. at 2022 Reported and signed by: Brandon Teague M.D. CC: Laureano Barnett DO; Tiffany Dickson MD Technologist:SUSHMA KNIGHT, RT(R) CT CTDI: DLP: Trnscb Date/Time: 04/25/2018 (2022) Pro Orig Print D/T: S: 04/25/2018 (2025) CTDI: DLP: PAGE 1 Signed Report CBC W/AUTO [id number] 20:21:00* Test Item Value Reference Range Comments WHITE BLOOD CELL (test code=WBC) 12.2 K/mm3 4.5-12.5 RED BLOOD CELL (test code=RBC) 3.06 mill/mm3 3.7-5.2 HEMOGLOBIN (test code=HGB) 9.0 gram/dL 11.5-15.5 HEMATOCRIT (test code=HCT) 29.8 % 36.0-46.0 MEAN CELL VOLUME (test code=MCV) 97.4 fL 80-98 MEAN CELL HGB (test code=MCH) 29.4 picogram 27.0-33.0 MEAN CELL HGB CONCETRATION (test code=MCHC) 30.2 gram/dL 33.0-36.0 RED CELL DISTRIBUTION WIDTH (test code=RDW) 16.6 % 11.6-16.2 RED CELL DISTRIBUTION WIDTH SD (test code=RDW-SD) 59.0 fL 37.0-51.0 PLATELET COUNT (test code=PLT) 180 K/mm3 150-450 MEAN PLATELET VOLUME (test code=MPV) 13.2 fL 6.7-11.0 NEUTROPHIL % (test code=NT%) 91.4 % 39.0-69.0 IMMATURE GRANULOCYTE % (test code=IG%) 0.7 % 0.0-5.0 LYMPHOCYTE % (test code=LY%) 3.0 % 25.0-55.0 MONOCYTE % (test code=MO%) 4.8 % 0.0-10.0 EOSINOPHIL % (test code=EO%) 0.0 % 0.0-5.0 BASOPHIL % (test code=BA%) 0.1 % 0.0-1.0 NUCLEATED RBC % (test code=NRBC%) 0.2 % 0-0 NEUTROPHIL # (test code=NT#) 11.15 K/mm3 1.8-7.7 IMMATURE GRANULOCYTE # (test code=IG#) 0.08 x10 3/uL 0-0.03 LYMPHOCYTE # (test code=LY#) 0.36 K/mm3 1.0-5.0 MONOCYTE # (test code=MO#) 0.58 K/mm3 0-0.8 EOSINOPHIL # (test code=EO#) 0.00 K/mm3 0.0-0.5 BASOPHIL # (test code=BA#) 0.01 K/mm3 0.0-0.2 NUCLEATED RBC # (test code=NRBC#) 0.03 K/mm3 0.0-0.1 MANUAL DIFF REQUIRED (test code=MDIFF) NO - XR CHEST 1 [id number] 19:15:00 FAX: Laureano Meadows DO [phone] [place]: St: PRE FAX: Imelda Zabala [phone] Name: SOCORRO MORA [facility] : 1950 Age/S: 67/F [address] [facility] Unit #: [id number] Loc: [place] [address] Phys: Imelda Dickson MD Acct: [id number] Dis Date: Status: PRE ER PHONE #: [phone] Exam Date: 04/25/2018 191 FAX #: [phone] Reason: Altered Mental Status EXAMS: CPT CODE: [id number] XR CHEST 1 V [id number] REASON FOR EXAM: Altered Mental Status EXAM ORDER DATE: 04/25/2018 6:55 PM Ordering Daniel: Imelda Dickson MD PROCEDURE: - XR CHEST 1 V COMPARISON: FINDINGS: Portable AP frontal view of the chest obtained at 7:12 PM shows no evidence of effusion. The heart size is minimally enlarged. Pulmonary vasculatures are unremarkable. IMPRESSION: Patchy atelectasis at the left base. Electronically Signed by Daniel Teague on 04/25 at 1915 Reported and signed by: Brandon Teague M.D. CC: Laureano Barnett DO; Imelda Dickson MD chnologist: Jose RAMACHANDRAN(R) Trnscrd Date/ Time/By: 04/25/2018 (191) : By: StarlaVTL Orig Print D/T: S: 04/25/19 19 (1918) PAGE 1 Signed Report
[2018-11-08] MEDS ORDERED: ONDANSETRON HCL INJ 2MG/ML 2ML 2 MG/ML VIAL IV ONE (12:55)
[2018-11-08] MEDS ORDERED: FAMOTIDINE 20 MG/2 ML VIAL IV SCH (13:30)
[2018-11-08 13:47] LABS: BASOPHILS # (AUTO) 0.1 (0.0-0.1); BASOPHILS % 0.8 % (0.0-1.0); EOSINOPHILS # (AUTO) 0.1 (0.0-0.4); EOSINOPHILS % 1.3 % (0.0-6.0); HEMATOCRIT 41.3 % (34.2-44.1); HEMOGLOBIN 13.2 g/dL (12.0-16.0); LYMPHOCYTES # (AUTO) 0.9 (1.0-3.2); LYMPHOCYTES % 14.4 % (18.0-39.1); MEAN CORPUSCULAR HEMOGLOBIN 30.4 pg (28-32); MEAN CORPUSCULAR VOLUME 95.2 fL (81-99); MONOCYTES # (AUTO) 0.2 (0.2-0.8); MONOCYTES % 3.9 % (4.4-11.3); NEUTROPHILS # (AUTO) 4.8 (2.1-6.9); NEUTROPHILS % 79.3 % (38.7-80.0); PLATELET COUNT 187 x10e3/uL (140-360); RED BLOOD COUNT 4.34 x10e6/uL (3.6-5.1); RED CELL DISTRIBUTION WIDTH 18.5 % (11.7-14.4)
[2018-11-08 13:55] LABS: INR 1.05; PROTHROMBIN TIME 14.2 seconds (11.9-14.5)
[2018-11-08 13:56] LABS: PARTIAL THROMBOPLASTIN TIME 30.3 seconds (23.8-35.5)
[2018-11-08 14:05] LABS: ALBUMIN 3.6 g/dL (3.5-5.0); ALBUMIN/GLOBULIN RATIO 0.9 (0.8-2.0); ALKALINE PHOSPHATASE 95 IU/L (40-150); ANION GAP 28.5 mmol/L (8-16); BLOOD UREA NITROGEN 65 mg/dL (7-26); BUN/CREATININE RATIO 8 (6-25); CALCIUM 9.3 mg/dL (8.4-10.2); CARBON DIOXIDE 19 mmol/L (22-29); CHLORIDE 97 mmol/L (98-107); CREATINE KINASE 36 IU/L (29-168); CREATININE, SERUM 8.62 mg/dL (0.57-1.11); EST GLOMERULAR FILTRATION RATE 5 ML/MIN (60-); GLUCOSE 67 mg/dL (74-118); LIPASE 25 U/L (8-78); SODIUM 138 mmol/L (136-145)
[2018-11-08 14:09] LABS: ALANINE AMINOTRANSFERASE < 6 IU/L (0-55)
[2018-11-08 14:10] LABS: POTASSIUM 6.5 mmol/L (3.5-5.1)
[2018-11-08] MEDS ORDERED: DEXTROSE 50% SYRINGE 50 ML IV ONE (14:23)
[2018-11-08] MEDS ORDERED: SODIUM BICARBONATE 8.4% INJ 50 ML SYR IV STA (14:23)
[2018-11-08] MEDS ORDERED: INSULIN REGULAR, HUMAN 100 UNIT/1 ML 3ML VIAL IV ONE (14:23)
[2018-11-08] MEDS ORDERED: CALCIUM GLUCONATE 10% INJ 0.465 MEQ/ML VIAL IV ONE (14:23)
[2018-11-08] MEDS ORDERED: SOD POLYSTYRENE SULFONATE SUSP 15 GM/60 ML BTL PO ONE (14:30)
--- NOTE | 2018-11-08 14:58 | Diagnostic Imaging Report ---
Exam: Chest one view Clinical history: Vomiting Findings: There is no evidence of pulmonary consolidation, pleural effusion, or pneumothorax. The cardiac size is enlarged. A right internal jugular tunneled dialysis catheter is noted with its tip at the cavoatrial junction. The regional osseous structures are unremarkable. Impression: 1. Moderate cardiomegaly. Signed by: Dr. Efe Rosenthal MD on 11/08/2018 2:55 PM
[2018-11-08 15:07] LABS: CLARITY,URINE TURBID (CLEAR); COLOR,URINE OTHER (YELLOW); LEUKOCYTE ESTERASE ,URINE LARGE (NEGATIVE); NITRITE,URINE NEGATIVE (NEGATIVE); URINE UROBILINOGEN 0.2 mg/dL (0.2 - 1)
[2018-11-08 15:08] LABS: KETONES,URINE NEGATIVE (NEGATIVE); PROTEIN,URINE DIPSTICK 2+ (NEGATIVE)
[2018-11-08 15:10] LABS: BILIRUBIN,URINE NEGATIVE (NEGATIVE); WBC,URINE (MAN) 21-50 /HPF (0-5)
[2018-11-08 15:11] LABS: BACTERIA,URINE MANY /HPF
--- NOTE | 2018-11-08 16:06 | Diagnostic Imaging Report ---
Examination: CT head without contrast Clinical Indication: Nausea. Vomiting. Dizziness. Technique: Transaxial noncontrast images from the skull base through the vertex were obtained. Sagittal and coronal reformatted images were done. Dose modulation, iterative reconstruction, and/or weight based adjustment of the mA/kV was utilized to reduce the radiation dose to as low as reasonably achievable. Comparison: None. Findings: Scalp: No abnormalities. Bones: A broad-based exostosis is identified involving the outer table of the left frontal calvarium (2.0 x 0.8 cm anteroposterior by transverse dimension). No fractures. No blastic or lytic lesions. Brain sulci: Mild volume loss for patient's age. Ventricles: No hydrocephalus. Extra-axial space: No abnormalities. Parenchyma: There are subtle patchy areas of low-attenuation within subcortical and periventricular white matter, nonspecific, but could represent microvascular ischemic disease. No masses, hemorrhage, or acute or chronic cortical based vascular insults. Suprasellar region: No abnormalities. Craniocervical junction: The foramen magnum is patent. No Chiari one malformation. Incidental findings: Atherosclerotic calcification of the cavernous and supraclinoid internal carotid and V4 segments of the bilateral vertebral arteries. Impression: 1. No acute intracranial finding. 2. Mild chronic microvascular ischemic change and volume loss. Signed by: Dr. Roxann Ace M.D. on 11/08/2018 4:02 PM
[2018-11-08] MEDS ORDERED: CLOPIDOGREL75 MG PO (16:08)
[2018-11-08] MEDS ORDERED: LISINOPRIL10 MG PO (16:08)
[2018-11-08] MEDS ORDERED: LOPRESSOR25 MG PO (16:08)
[2018-11-08] MEDS ORDERED: ATORVASTATIN CA40 MG PO (16:08)
[2018-11-08] MEDS ORDERED: PANTOPRAZOLE SO40 MG PO (16:08)
[2018-11-08] MEDS ORDERED: LEVOTHYROXINE100 MCG PO (16:08)
[2018-11-08] MEDS: SOD POLYSTYRENE SULFONATE SUSP 15 GM/60 ML BTL PO SCH ×2 (17:22→21:36)
[2018-11-08] MEDS ORDERED: ACETAMINOPHEN/CODEINE 300MG - 30MG TAB PO PRN (17:30)
[2018-11-08] MEDS ORDERED: ACETAMINOPHEN 325 MG TAB PO PRN (17:30)
[2018-11-08] MEDS ORDERED: HYDRALAZINE HCL 20 MG/ML VIAL IV PRN (17:30)
[2018-11-08] MEDS ORDERED: MELATONIN 5 MG TABLET PO PRN (17:30)
[2018-11-08] MEDS: INSULIN REGULAR, HUMAN 100 UNIT/1 ML 3ML VIAL SQ SCH ×2 (17:42→19:56)
[2018-11-08] MEDS: DEXTROSE 50% SYRINGE 50 ML IV PRN (17:42)
[2018-11-08 18:10] VITALS: BP 157/70
[2018-11-08 18:24] VITALS: BP 157/70
[2018-11-08] MEDS: LEVOFLOXACIN 250MG/D5W 50ML 50 ML IV SCH (18:56)
[2018-11-08 19:43] VITALS: BP 157/70
[2018-11-08 20:32] VITALS: BP 136/63
[2018-11-08 21:00] VITALS: BP 136/63
[2018-11-08] MEDS: ATORVASTATIN 40 MG TAB PO SCH (21:00)
[2018-11-08] MEDS ORDERED: SODIUM CHLORIDE 0.9% 1000ML 2,000 ML ONE (21:16)
[2018-11-08] MEDS ORDERED: ALBUMIN 25% 12.5GM 0.25 GM/ML BTL IV PRN (21:30)
[2018-11-08] MEDS ORDERED: HEPARIN SOD (PORCINE) 1000 UNIT/ML SDV IV PRN (21:30)
[2018-11-08] MEDS ORDERED: SODIUM CHLORIDE 0.9% 250ML 500 ML IV PRN (21:30)
[2018-11-08] MEDS ORDERED: SODIUM CHLORIDE 0.9% 1000ML 2,000 ML IV PRN (21:30)
[2018-11-08] MEDS: DIPHENHYDRAMINE HCL INJ 50 MG/ML VIAL IV PRN (21:55)
[2018-11-09] VITALS (7 sets, daily range): BP systolic 110–159; BP diastolic 53–81
--- NOTE | 2018-11-09 00:33 | Consultation ---
DATE OF CONSULTATION: 11/08/2018 Renal Consult HISTORY OF PRESENT ILLNESS: This is a 68-year-old female with end-stage renal disease on hemodialysis Monday, , Monday Edgar EDGAR. The patient's last dialysis was on Monday. On Monday, she stated she had nausea and vomiting, which continued on through today, so she decided to come into the emergency room. ALLERGIES: PENICILLIN. PAST MEDICAL HISTORY: Include: 1. ESRD, on hemodialysis since June 2018. 2. Type 2 diabetes mellitus. 3. Hypertension. 4. Peripheral vascular disease. 5. Peripheral neuropathy. 6. Hyperlipidemia. 7. Frequent UTI. FAMILY HISTORY: Mother with type 2 diabetes mellitus and hypertension. PAST SURGICAL HISTORY: 1. Thyroid surgery. 2. Tubal ligation. 3. Left AKA. 4. Angiogram of leg with stents. SOCIAL HISTORY: No smoking or alcohol. No drugs. REVIEW OF SYSTEMS: Positive nausea, positive vomiting. No diarrhea. No blood in stool. No blood in the urine. No change in vision or changes in hearing. No motor loss. No enlarged lymph nodes. No wheezes. Basically, 14 review of systems were done, only pertinent as above. PHYSICAL EXAMINATION: GENERAL: Alert, following commands. HEENT: Pupils are equal and reactive to light and accommodation. NECK: No JVD. No bruit. LUNGS: Rhonchi. No rales. HEART: Regular. No S3. No S4. ABDOMEN: Nontender and nondistended. No hepatomegaly or splenomegaly. EXTREMITIES: No clubbing, no cyanosis, no edema. Left AKA. NEUROLOGIC: Cranial nerves 2 through 12 are grossly intact. Sensation intact. Motor intact. SKIN: No lesion. LABORATORY DATA: Urinalysis, 4+ blood, large leukocyte esterase, many bacteria. Sodium 138, potassium 6.5, chloride 97, CO2 of 19, creatinine 8.6. AST 13, albumin 3.6. White count 6.1, hemoglobin 13.2, hematocrit 41.3. Head CAT scan, no acute changes. Chest x-ray, moderate cardiomegaly. ASSESSMENT AND PLAN: 1. End stage renal disease with severe hyperkalemia, metabolic acidosis. The patient will have emergent dialysis tonight. 2. Anemia of chronic disease, currently stable with hemoglobin of 13.2. 3. Nausea and vomiting. Need to rule out abdominal issue. Current amylase, lipase, LFTs are stable as so most likely the patient has severe urinary tract infection. 4. Urinary tract infection/sepsis. The patient will be started on Levaquin. 5. Type 2 diabetes mellitus. We will monitor her glucose and have her on sliding scale. 6. Hypertension, currently stable. Ming Son MD MA/BEHZAD /[id number]
[2018-11-09 02:02] LABS: BASOPHILS % 0.4 % (0.0-1.0); EOSINOPHILS # (AUTO) 0.1 (0.0-0.4); EOSINOPHILS % 1.8 % (0.0-6.0); HEMATOCRIT 34.3 % (34.2-44.1); HEMOGLOBIN 11.1 g/dL (12.0-16.0); LYMPHOCYTES % 13.8 % (18.0-39.1); MEAN CORPUSCULAR HEMOGLOBIN 30.6 pg (28-32); MEAN CORPUSCULAR HGB CONC 32.4 g/dL (31-35); MEAN CORPUSCULAR VOLUME 94.5 fL (81-99); MONOCYTES # (AUTO) 0.5 (0.2-0.8); MONOCYTES % 7.2 % (4.4-11.3); NEUTROPHILS # (AUTO) 5.4 (2.1-6.9); NEUTROPHILS % 76.5 % (38.7-80.0); PLATELET COUNT 137 x10e3/uL (140-360); RED BLOOD COUNT 3.63 x10e6/uL (3.6-5.1); RED CELL DISTRIBUTION WIDTH 18.2 % (11.7-14.4)
[2018-11-09 02:18] LABS: ANION GAP 17.9 mmol/L (8-16); CALCIUM 8.8 mg/dL (8.4-10.2); CHOL/HDL RATIO 2.9 (3.0-3.6)
[2018-11-09 02:24] LABS: CREATININE, SERUM 4.25 mg/dL (0.57-1.11); POTASSIUM 3.9 mmol/L (3.5-5.1)
[2018-11-09] MEDS: DIPHENHYDRAMINE HCL INJ 50 MG/ML VIAL IV PRN (02:24)
[2018-11-09 02:32] LABS: B-TYPE NATRIURETIC PEPTIDE2 > 5000.0 pg/mL (0-100)
[2018-11-09 02:38] LABS: FREE T4 (FREE THYROXINE) 0.95 ng/dL (0.8-1.8); THYROID STIMULATING HORMONE 2.439 uIU/mL (0.350-4.940)
[2018-11-09] MEDS ORDERED: GLIPIZIDE 5 MG TAB PO SCH (07:30)
[2018-11-09] MEDS: INSULIN REGULAR, HUMAN 100 UNIT/1 ML 3ML VIAL SQ SCH ×4 (07:30→21:00)
[2018-11-09] MEDS: FAMOTIDINE 20 MG TAB PO SCH ×2 (08:00→17:43)
[2018-11-09] MEDS: PANTOPRAZOLE SOD 40 MG TABEC PO SCH (08:00)
[2018-11-09] MEDS: LEVOTHYROXINE SODIUM 100 MCG TAB PO SCH (08:00)
[2018-11-09] MEDS: CLOPIDOGREL BISULFATE 75 MG TAB PO SCH (08:19)
[2018-11-09] MEDS: METOPROLOL TARTRATE 25 MG TAB PO SCH (08:19)
[2018-11-09 08:23] LABS: MAGNESIUM 2.5 MG/DL (1.3-2.1)
--- NOTE | 2018-11-09 08:45 | Diagnostic Imaging Report ---
Abdominal ultrasound. History: Nausea and vomiting, and stage renal disease. Comparison: None available. Discussion: Transverse and longitudinal images of the abdomen were obtained demonstrating a mildly enlarged liver with normal echogenicity measuring 17.7 cm in length. The portal vein is patent with hepatopetal flow and is within normal limits measuring 9 mm in diameter. The biliary tree is within normal limits with the common bile duct measuring 3 mm in diameter. The gallbladder is normal without evidence of stones, wall thickening, or pericholecystic fluid. The sonographic Paul's sign was negative. The kidneys are atrophic with increased echogenicity bilaterally without evidence of hydronephrosis or mass. A 9 mm shadowing echogenic focus is present in the medial aspect of the right kidney. An oval hypoechoic circumscribed structure with low level internal echoes is seen in the right renal lower pole measuring 2.0 x 2.1 x 2.3 cm. The right kidney measures 8.3 cm and the left kidney measures 8.0 cm in length. The spleen is normal in size and appearance measuring 10.6 cm in length. The pancreatic head and body are visualized and are normal in appearance. The abdominal aorta and IVC are within normal limits. There is no evidence of free fluid. IMPRESSION: 1. Mild hepatomegaly without focal hepatic abnormality. 2. Bilateral renal atrophy with probable complex cyst in the right lower pole. Recommend further evaluation with CT renal mass protocol. 3. Small nonobstructing right renal calculus. Signed by: Artis Mayes on 11/09/2018 8:42 AM
[2018-11-09] MEDS: DEXTROSE 50% SYRINGE 50 ML IV PRN ×3 (11:42→17:42)
--- NOTE | 2018-11-09 13:48 | Consultation ---
DATE OF CONSULTATION: 11/09/2018 REASON FOR CONSULTATION: Right foot wound. HISTORY OF PRESENTING ILLNESS: This is a 68-year-old female with past medical history of end-stage renal disease on hemodialysis, type 2 diabetes, peripheral vascular disease, and peripheral neuropathy, who was admitted for increased nausea and vomiting to the emergency room yesterday. The patient relates to having a wound to her right foot, which has been present for over 1 month. The patient relates to have a history of a stenting procedure to her right lower extremity in September of 2018. She has a history of a left gjezn-whq-ldta amputation, which was done in 2009. The patient currently relates to moderate pain to her right foot. She relates that no previous wound care has been done for it. She relates to complaints with her home health nurse. She currently relates nausea and vomiting, but denies fever or chills. She has no chest pain or shortness of breath. PAST MEDICAL HISTORY: End-stage renal disease, type 2 diabetes, peripheral neuropathy, peripheral vascular disease, hypertension, and hyperlipidemia. ALLERGIES: TO PENICILLIN. FAMILY HISTORY: Type 2 diabetes and peripheral neuropathy. PAST SURGICAL HISTORY: 1. Left kymzu-cad-mfpb amputation. 2. Angiogram of the right lower extremity with stenting approximately 2 months ago. SOCIAL HISTORY: The patient denies drinking, smoking, or any illicit drug usage. REVIEW OF SYSTEMS: The patient relates a nausea and vomiting, but denies fever, chills, chest pain, or shortness of breath. PHYSICAL EXAMINATION: GENERAL: Alert and oriented. No apparent distress. VITAL SIGNS: Temperature is 99.1, heart rate 63, respiratory rate 18, blood pressure 134/61, and pulse ox is 100% on room air. PROBLEM FOCUSED LOWER EXTREMITY PHYSICAL EXAM: VASCULAR: Dorsalis pedis and posterior tibial pulses are nonpalpable. Capillary refill time is delayed to all digits, specifically digits 3, 4, and 5 with cyanotic discoloration, which show signs of early gangrene. Delayed capillary refill time. NEUROLOGICAL: Sensation is diminished to light touch. However, pain on palpation is felt to digits 3, 4, and 5. MUSCULOSKELETAL: Left sznaw-eov-pobn amputation, right. Pain on palpation to right 3rd, 4th, and 5th digits. DERMATOLOGICAL: Deep ulcerations are noted to the interspaces of the 3rd and 4th digits as well as the 4th and 5th digits with fibrotic tissue present. Blue cyanotic discoloration is noted to digits 3, 4, and 5 with feet being cool to the touch. There is malodor present. Mild periwound erythema is noted. Negative edema. LABORATORY DATA: White blood cell count today is 7.11, hemoglobin 11.1, hematocrit 34.3, and platelet count 137. Sodium 141, potassium 3.9, chloride 99, CO2 28, BUN 28, and creatinine 4.25. Hemoglobin A1c is 5.7. ASSESSMENT: 1. Right foot multiple ulcerations with early gangrene. 2. Peripheral vascular disease. 3. Type 2 diabetes. 4. Peripheral neuropathy. 5. End-stage renal disease. PLAN: The patient was seen and evaluated. Discussed condition and treatment options with the patient in detail. At this time, the right foot wounds were cleansed with Hibiclens and dressed with a Betadine wet-to-dry fashion with dry sterile dressings. Arterial Dopplers have been ordered to determine the extent of peripheral vascular disease with recent stenting. Discussed with the patient that with signs of early gangrene and deep ulcerations to the interspaces of the digits, the prognosis is guarded and will likely require another amputation. The patient was adamantly against amputation and relates that she would not do that again. Discussed with the patient that due to severe peripheral vascular disease and early gangrene, she is at very high risk for further amputation. We will await results of arterial Doppler and MRI. The Podiatry Service will continue to monitor as an inpatient. YEVGENIY Dumont/BEHZAD /[id number]
[2018-11-09] MEDS: LEVOFLOXACIN 250MG/D5W 50ML 50 ML IV SCH (18:00)
[2018-11-09] MEDS ORDERED: DEXTROSE 5%/0.9% SOD CHL 1,000 ML IV ONE (18:00)
[2018-11-09] MEDS: ATORVASTATIN 40 MG TAB PO SCH (20:33)
[2018-11-10] VITALS (8 sets, daily range): BP systolic 105–139; BP diastolic 55–66
[2018-11-10] MEDS: DEXTROSE 50% SYRINGE 50 ML IV PRN ×5 (01:05→15:29)
[2018-11-10] MEDS: DIPHENHYDRAMINE HCL INJ 50 MG/ML VIAL IV PRN (01:05)
[2018-11-10 03:36] LABS: BASOPHILS % 0.7 % (0.0-1.0); EOSINOPHILS # (AUTO) 0.1 (0.0-0.4); EOSINOPHILS % 1.5 % (0.0-6.0); HEMATOCRIT 32.7 % (34.2-44.1); HEMOGLOBIN 10.3 g/dL (12.0-16.0); LYMPHOCYTES % 17.3 % (18.0-39.1); MEAN CORPUSCULAR HEMOGLOBIN 30.5 pg (28-32); MEAN CORPUSCULAR HGB CONC 31.5 g/dL (31-35); MEAN CORPUSCULAR VOLUME 96.7 fL (81-99); MONOCYTES # (AUTO) 0.6 (0.2-0.8); MONOCYTES % 10.5 % (4.4-11.3); NEUTROPHILS # (AUTO) 4.1 (2.1-6.9); NEUTROPHILS % 69.7 % (38.7-80.0); PLATELET COUNT 133 x10e3/uL (140-360); RED BLOOD COUNT 3.38 x10e6/uL (3.6-5.1); RED CELL DISTRIBUTION WIDTH 18.6 % (11.7-14.4)
[2018-11-10 04:21] LABS: ANION GAP 18.9 mmol/L (8-16); CALCIUM 7.9 mg/dL (8.4-10.2); CREATININE, SERUM 5.82 mg/dL (0.57-1.11); MAGNESIUM 2.5 MG/DL (1.3-2.1); PHOSPHORUS 6.5 MG/DL (2.3-4.7); POTASSIUM 4.9 mmol/L (3.5-5.1)
[2018-11-10] MEDS: LEVOTHYROXINE SODIUM 100 MCG TAB PO SCH (06:10)
[2018-11-10] MEDS: FAMOTIDINE 20 MG TAB PO SCH ×2 (08:28→17:07)
[2018-11-10] MEDS: METOPROLOL TARTRATE 25 MG TAB PO SCH (08:28)
[2018-11-10] MEDS: CLOPIDOGREL BISULFATE 75 MG TAB PO SCH (08:28)
[2018-11-10] MEDS: PANTOPRAZOLE SOD 40 MG TABEC PO SCH (08:28)
--- NOTE | 2018-11-10 09:47 | Progress Note ---
DATE: 11/10/2018 SUBJECTIVE: A 68-year-old female with past medical history of type 2 diabetes, peripheral neuropathy, peripheral vascular disease, hypertension, and a left wcihs-fmq-erij amputation. She is seen at bedside this morning. The patient is currently moaning while in the room and appears to be in mild distress. The patient relates the pain to her right foot and continues to remain nauseated, but has not had vomiting. Denies fever, chills, chest pain, or shortness of breath. OBJECTIVE: VITAL SIGNS: Today temperature 98.0, heart rate 66, respiratory rate 16, blood pressure 105/61, pulse ox 97% on room air. PROBLEM FOCUSED LOWER EXTREMITY PHYSICAL EXAM: Vascular, dorsalis pedis and posterior tibial pulses are nonpalpable. Capillary refill time is delayed to all digits, specifically the digits 3, 4, and 5 with cyanotic discoloration. The right hallux appears to have worsened since previous visit with early gangrenous changes and new ulcerations noted to the medial aspect of the right hallux as well as to the lateral aspect of the right ankle. NEUROLOGICAL: Sensation is diminished to light touch, however, pain on palpation is noted to the ulcerations. MUSCULOSKELETAL: Left dliss-njy-bydt amputation. DERMATOLOGICAL: Multiple ulcerations are noted to the patient's right foot, specifically in the 3rd, and 4th interspaces of the right foot with deep probing. Fibrotic and necrotic tissue and cyanotic discoloration is noted across the forefoot with delayed capillary refill time. New ulcerations are noted to the patient's right hallux as well as the lateral aspect of the right ankle. Skin is taut and shiny. The foot feels cool to the touch. LABORATORY DATA: White blood cell count is 5.9, hemoglobin 10.3, hematocrit 32.7, platelet count 133. Sodium 131, potassium 4.9, chloride 101, CO2 of 23, BUN 38, creatinine 5.82. IMAGING: Arterial Dopplers reveal severe peripheral vascular disease to the right lower extremity. ASSESSMENT: 1. Right foot multiple ulcerations with signs of gangrene. 2. Peripheral vascular disease, severe. 3. Type 2 diabetes with peripheral neuropathy. 4. End-stage renal disease. PLAN: The patient was seen and evaluated, discussed condition and treatment options with the patient in detail. Right foot wounds were again cleansed with Hibiclens and dressed with Betadine wet-to-dry. Cardiology has been consulted; however, the patient relates to having stenting procedure done approximately 1 month ago. Discussed with patient the prognosis is poor based on the evaluation of the patient's right foot and would likely not heal any foot amputation. The patient will likely need a higher amputation, likely BKA or AKA. Discussed with the patient and she is adamantly against and refusing amputation at this time. MRI is pending for the right foot. Podiatry Service will continue to monitor as an inpatient. YEVGENIY Dumont/BEHZAD /[id number]
[2018-11-10] MEDS: INSULIN LISPRO 100 UNIT/1 ML 3ML VIAL SQ SCH ×2 (16:30→20:26)
[2018-11-10] MEDS: DEXTROSE 10% 1,000 ML IV SCH (18:45)
[2018-11-10] MEDS: LEVOFLOXACIN 250MG/D5W 50ML 50 ML IV SCH (19:17)
--- NOTE | 2018-11-10 19:49 | Consultation ---
DATE OF CONSULTATION: 11/10/2018 Cardiology Consultation REASON FOR CONSULTATION: Peripheral arterial disease. HISTORY OF PRESENT ILLNESS: This is a 68-year-old woman with a history of hypertension, hyperlipidemia, diabetes mellitus, prior left below the knee amputation, peripheral artery disease, status post recent stenting by an unknown physician, end-stage renal disease on hemodialysis, who presented to the emergency department evidently with nausea, vomiting, and generalized unwell feeling. She is somewhat confused at this point in time, cannot provide me exact details of her presenting symptoms or review of systems. She currently denies any lucian chest pain or shortness of breath. The patient was found to have a right lower extremity wound and we were consulted to provide assistance with her peripheral arterial disease. PAST MEDICAL HISTORY: As stated above. PAST SURGICAL HISTORY: As stated above. PAST FAMILY HISTORY: Noncontributory. MEDICATIONS: See medication reconciliation form. ALLERGIES: TO PENICILLIN. SOCIAL HISTORY: No illicit drug, alcohol, or tobacco use. REVIEW OF SYSTEMS: Unable to be obtained due to mild confusion. OBJECTIVE: VITAL SIGNS: Temperature is 95, heart rate is 59, respirations are 17, blood pressure is 117/55, oxygen saturation 94% on room air. GENERAL: Well-appearing, well-built, no apparent distress. CARDIOVASCULAR: Regular rate and rhythm. LUNGS: Clear to auscultation. ABDOMEN: Soft, nontender, and nondistended. EXTREMITIES: Left BKA. Right lower extremity wound. HEENT: Head is normocephalic, atraumatic. Eyes, extraocular muscles are intact. Throat is clear. NECK: No JVD. No bruits. ENT: Oropharynx clear. Mucous membranes are moist. LABORATORY DATA: Reviewed. Echocardiogram was technically difficult, however, showed a severely depressed left ventricular systolic function. IMPRESSION: 1. Peripheral arterial disease with diabetic foot wound. 2. Hypertension. 3. Hyperlipidemia. 4. Diabetes mellitus. 5. End-stage renal disease. 6. Chronic systolic congestive heart failure. RECOMMENDATIONS: Please obtain an arterial Doppler of the right lower extremity. Continue current cardiovascular medications including metoprolol, clopidogrel, atorvastatin. If okay with Nephrology, we would like to add an FILIPE inhibitor for her congestive heart failure. She will undergo volume removal through hemodialysis. Unclear whether not she has had prior ischemic evaluation for coronary artery disease. If not, this will need to be evaluated. I can provide peripheral angiography with possible angioplasty of the right lower extremity once arterial Dopplers have been performed. DO JANIA Penaloza/BEHZAD /[id number]
--- NOTE | 2018-11-10 21:34 | Consultation ---
DATE OF CONSULTATION: 11/10/2018 Endocrine Consult[address] Patient of Dr. Mary. Thank you very much for this patient. HISTORY OF PRESENT ILLNESS: This is a 68-year-old white female, who was referred to me for evaluation of hypoglycemia. The patient reported she is a known diabetic for almost 8-10 years and presently is on glipizide 5 mg once daily. She came to the hospital with history of altered mental status, hypoglycemia, and her blood sugars have been persistently low. She also has history of infection of the foot. She is status post below-knee amputation on the left side and also has a nonhealing ulcer of the right heel. The patient is on several medications including hydralazine, Lipitor, levothyroxine 0.1 mg once daily, Plavix, and metoprolol. The patient is also confused and oral intake has dropped quite significantly. PHYSICAL EXAMINATION: GENERAL: The patient is awake, but very confused and agitated. VITAL SIGNS: Her heart rate is around 70 and blood pressure 130/80 mmHg. HEENT: Essentially unremarkable. Thyroid is palpable. Clinically, she is near euthyroid. CHEST: Bilateral vesicular breathing. She has mild bronchospasm. CARDIAC: First and second heart sounds. There is no third or fourth with the systolic grade 2/6. EXTREMITIES: The patient has as already mentioned below-knee amputation on the right side and foot ulcers on the left heel. LABORATORY DATA: As already mentioned, the blood sugars have been significantly low in the ranges of 40s and 50s. CLINICAL IMPRESSION: 1. Hypoglycemia, multifactorial, probably related to sulfonylureas, chronic renal failure, and poor oral intake. 2. Diabetes mellitus type 2 with complications. 3. End-stage renal failure, on chronic hemodialysis. 4. Hypothyroidism. 5. Below-knee amputation on the right and foot ulcer on the left heel. PLAN: At this time is to make the patient increase p.o. intake and we will start her on the D10 for 24 hours and monitor her blood sugars closely. The patient has been instructed to increase oral intake. MD NELSON Brown/BEHZAD /[id number] ARIES
[2018-11-10] MEDS: ATORVASTATIN 40 MG TAB PO SCH (22:09)
--- NOTE | 2018-11-10 22:09 | Diagnostic Imaging Report ---
EXAMINATION: CT of the abdomen and pelvis with contrast. TECHNIQUE: Spiral CT images of the abdomen and pelvis were performed from the lung bases to the lesser trochanters before and after the intravenous administration of 100 cc Isovue-370 per renal mass protocol.. Coronal and sagittal reformatted images were obtained. COMPARISON: Abdominal ultrasound 11/09/2018 CLINICAL HISTORY:Right complex renal cyst DISCUSSION: ABDOMEN/PELVIS: LOWER THORAX:Trace right pleural effusion with passive atelectasis of the lung bases right greater than left. Cardiomegaly. 1.5 cm hypoattenuating structure in the left ventricular apex (series 7 image 40). HEPATOBILIARY: 6.2 x 5.5 x 7 (craniocaudal by AP by transverse) hypoattenuating lesion in hepatic segment 8 at the dome, with faint internal calcifications on precontrast examination and nodular enhancement on delayed phase images. This segment of the liver is not imaged on arterial or venous phase scans. No intra-or extrahepatic biliary ductal dilation. The gallbladder is distended without radiopaque calculus or pericholecystic inflammation. SPLEEN: No splenomegaly. PANCREAS: Coarse pancreatic calcifications likely related to prior pancreatitis. ADRENALS: No adrenal nodules. KIDNEYS/URETERS: 2.6 cm right lower pole low-attenuation lesion with attenuation values as follows: Precontrast: 4 Hounsfield units Arterial: 9 Hounsfield units Venous: 8 Hounsfield units Delay: 6 Hounsfield units. Thin septation is identified on delayed phase images. Right renal cortical calcifications unchanged. Extensive atherosclerotic vascular calcifications in the renal bethanie. No additional focal renal lesion. PELVIC ORGANS/BLADDER: Urinary bladder is unremarkable. Arcuate artery calcifications of the uterus with a 5.5 cm hyperdense mass likely a fibroid. PERITONEUM/RETROPERITONEUM: Trace ascites average attenuation 15-20 Hounsfield units. Anasarca. No pneumoperitoneum. LYMPH NODES: No pelvic sidewall, retroperitoneal, or mesenteric lymphadenopathy. VESSELS: Extensive atherosclerotic calcification of the abdominal aorta which is borderline aneurysmal (3 cm) partially visualized left femoral-distal arterial bypass graft. GI TRACT: Gas and fecal material throughout the large bowel without wall thickening or adjacent inflammatory change. The appendix is not definitively identified. No right lower quadrant inflammation. No small bowel dilatation to suggest obstruction. BONES AND SOFT TISSUE: Postsurgical changes of the proximal left femur. Anterior cortical defect in the proximal left femur (series 7 image 209) compatible with incomplete fracture healing. The bones are diffusely osteopenic. Multilevel degenerative disc changes of the thoracolumbar spine. Right paraspinal intramuscular lipoma. Anasarca. IMPRESSION: Right lower pole minimally complex nonenhancing cystic lesion with thin internal septation, Bosniak category 2. No additional focal renal lesions. Large lesion in hepatic segment 8 has nodular peripheral enhancement on delayed phase and may represent a hemangioma, which is somewhat distorted by right hemidiaphragmatic elevation, though infiltrative/malignant etiologies should also be considered. Further evaluation with CT of the abdomen with and without contrast (liver mass protocol) is suggested. 1.5 cm hypoattenuating structure in the left ventricular apex is concerning for thrombus. Correlation with echocardiography is suggested. Probable 5.5 cm uterine fibroid. This may be confirmed by pelvic ultrasound. Atherosclerotic vascular disease with borderline aneurysmal dilatation of the infrarenal abdominal aorta (3 cm). Partially visualized surgical hardware related to operative fixation of the proximal left femur. Fracture line within the anterior cortex of the proximal diaphysis is partially visualized. Signed by: Dr. Leonidas Hutchinson M.D. on 11/10/2018 10:06 PM
[2018-11-11] VITALS (7 sets, daily range): BP systolic 119–195; BP diastolic 59–79
[2018-11-11] MEDS ORDERED: IOPAMIDOL 370 MG/ML 200 ML INFUS..BTL INJ ONE (00:18)
[2018-11-11] MEDS ORDERED: SODIUM CHLORIDE 0.9% 50ML 50 ML ONE (00:18)
[2018-11-11 03:32] LABS: BASOPHILS % 0.5 % (0.0-1.0); EOSINOPHILS # (AUTO) 0.2 (0.0-0.4); EOSINOPHILS % 3.3 % (0.0-6.0); HEMATOCRIT 32.2 % (34.2-44.1); HEMOGLOBIN 10.4 g/dL (12.0-16.0); LYMPHOCYTES # (AUTO) 1.1 (1.0-3.2); LYMPHOCYTES % 18.4 % (18.0-39.1); MEAN CORPUSCULAR HEMOGLOBIN 30.8 pg (28-32); MEAN CORPUSCULAR HGB CONC 32.3 g/dL (31-35); MEAN CORPUSCULAR VOLUME 95.3 fL (81-99); MONOCYTES # (AUTO) 0.6 (0.2-0.8); MONOCYTES % 10.5 % (4.4-11.3); NEUTROPHILS # (AUTO) 3.8 (2.1-6.9); NEUTROPHILS % 67.1 % (38.7-80.0); PLATELET COUNT 137 x10e3/uL (140-360); RED BLOOD COUNT 3.38 x10e6/uL (3.6-5.1); RED CELL DISTRIBUTION WIDTH 18.3 % (11.7-14.4)
[2018-11-11 03:53] LABS: ANION GAP 18.3 mmol/L (8-16); CALCIUM 7.8 mg/dL (8.4-10.2); CREATININE, SERUM 6.39 mg/dL (0.57-1.11); POTASSIUM 5.3 mmol/L (3.5-5.1)
[2018-11-11] MEDS: LEVOTHYROXINE SODIUM 100 MCG TAB PO SCH (06:20)
[2018-11-11 06:26] LABS: FREE T4 (FREE THYROXINE) 0.91 ng/dL (0.8-1.8)
[2018-11-11] MEDS: INSULIN LISPRO 100 UNIT/1 ML 3ML VIAL SQ SCH ×4 (07:30→21:00)
[2018-11-11] MEDS: DEXTROSE 10% 1,000 ML IV SCH ×2 (07:45→18:09)
[2018-11-11] MEDS ORDERED: LORAZEPAM INJ 2 MG/ML VIAL IV PRN (07:45)
[2018-11-11 07:54] LABS: THYROID STIMULATING HORMONE 2.081 uIU/mL (0.350-4.940)
[2018-11-11] MEDS: PANTOPRAZOLE SOD 40 MG TABEC PO SCH (08:50)
[2018-11-11] MEDS: CLOPIDOGREL BISULFATE 75 MG TAB PO SCH (08:50)
[2018-11-11] MEDS: FAMOTIDINE 20 MG TAB PO SCH ×2 (08:50→17:20)
[2018-11-11] MEDS: METOPROLOL TARTRATE 25 MG TAB PO SCH (08:51)
[2018-11-11] MEDS ORDERED: SODIUM CHLORIDE 0.9% 1000ML 2,000 ML ONE (09:35)
--- NOTE | 2018-11-11 10:22 | Progress Note ---
DATE: 11/11/2018 SUBJECTIVE: This is a 68-year-old female with past medical history of type 2 diabetes, peripheral neuropathy, peripheral vascular disease, hypertension, end-stage renal disease and the left rsmub-tip-qxyf amputation. She is seen this morning in the bedside chair. The patient appears to be improved since yesterday. The patient relates continued pain to her right foot, but her nausea and vomiting have been improved. Currently, denies nausea, vomiting, fever, chills, chest pain, or shortness of breath. OBJECTIVE: VITAL SIGNS: Today, temperature 97.9, heart rate 60, respiratory rate 16, blood pressure 119/59, pulse ox 97% on room air. PROBLEM FOCUSED LOWER EXTREMITY PHYSICAL EXAM: Vascular, dorsalis pedis and posterior tibial pulses are nonpalpable to the right lower extremity. Capillary refill time is delayed to all digits. The foot has cyanotic discoloration and is cool to the touch. New ulcerations are noted to the right hallux and 2nd digit as well as the medial aspect of the right ankle. Negative erythema or edema is noted at this time. NEUROLOGICAL: Sensation is diminished to light touch, however, pain on palpation is noted to the ulcerations. MUSCULOSKELETAL: Left lxlor-mmn-pcag amputation. DERMATOLOGICAL: Multiple ulcerations are noted to the patient's right foot in the 3rd and 4th interspaces with deep probing fibrotic necrotic tissue. There is cyanotic discoloration when the foot is cool to the touch to the entire forefoot. The patient has new ulcerations of the right hallux, 2nd digit as well as the medial aspect to the ankle. The skin is taut and shiny. LABORATORY DATA: White blood cell count is 5.71, hemoglobin 10.4, hematocrit 32.2, and platelet count 137. IMAGING: Arterial Dopplers reveal severe peripheral vascular disease of the right lower extremity. ASSESSMENT: 1. Right foot multiple ulcerations with gangrenous changes. 2. Peripheral vascular disease, severe. 3. Type 2 diabetes, peripheral neuropathy. 4. End-stage renal disease. PLAN: The patient was seen and evaluated. Discussed condition, treatment options with the patient in detail. Right foot wounds were again cleansed with Hibiclens and dressed with Betadine wet-to-dry. Cardiology has been consulted to evaluate for peripheral vascular disease and possible intervention. Discussed with patient the prognosis was poor based on the evaluation of the patient's right foot and will likely not heal any foot amputation. The patient will likely need a higher amputation with a BKA or AKA. Discussed with the patient and is refusing amputation at this time. The Podiatry Service will continue to monitor as an inpatient. YEVGENIY Dumont/MODJason /[id number]
[2018-11-11] MEDS ORDERED: LORAZEPAM INJ 2 MG/ML VIAL IV ONE (11:15)
--- NOTE | 2018-11-11 15:18 | Progress Note ---
DATE: 11/11/2018 Cardiology Progress Note SUBJECTIVE: The patient is fairly lethargic after receiving Xanax, undergoing hemodialysis. Cannot obtain a reliable review of systems. PHYSICAL EXAMINATION: VITAL SIGNS: Temperature is 97.9, heart rate is 65, blood pressure is currently 121/78, respirations are 16, and oxygen saturation 95% on 3 L nasal cannula. GENERAL: She is a chronically ill-appearing woman, lying comfortably in bed, sleeping, lethargic. CARDIOVASCULAR: Regular rate and rhythm. LUNGS: Diminished breath sounds at bases. ABDOMEN: Soft, obese, nontender. EXTREMITIES: Left amputation, right foot wound. CARDIOVASCULAR MEDICATIONS: Reviewed. LABORATORY DATA: Reviewed. TELEMETRY: Monitoring revealed normal sinus rhythm with premature ventricular complexes. IMPRESSION: 1. Peripheral arterial disease with diabetic foot wound. 2. Systolic congestive heart failure, likely chronic. 3. Hypertension. 4. Hyperlipidemia. 5. Diabetes mellitus. 6. End-stage renal disease. RECOMMENDATIONS: Arterial Doppler of the lower extremity showed severe peripheral arterial disease. I recommend peripheral angiography with possible intervention. Podiatry following along. Her echocardiogram showed severe reduction in left ventricular systolic function. She has significant risk factors for coronary artery disease and likely will require coronary angiography as well. Continue current cardiovascular medications. Change metoprolol to carvedilol. We would like to add an FILIPE inhibitor for congestive heart failure, however, we will ask Nephrology if this is safe. Continue to monitor closely on telemetry. Schuyler Camejo DO BM/MODL /[id number]
[2018-11-11] MEDS: LEVOFLOXACIN 250MG/D5W 50ML 50 ML IV SCH (16:50)
--- NOTE | 2018-11-11 17:13 | Diagnostic Imaging Report ---
TECHNIQUE: Magnetic resonance imaging of the RIGHT foot was performed WITHOUT injected contrast. HISTORY: End-stage renal disease, evaluate for osteomyelitis, toe infection COMPARISON: None available. DISCUSSION: The standard departmental protocol could not be completed. Reportedly sedation attempted twice. Motion artifact partially limits sensitivity and specificity of the exam. Inhomogeneous fat saturation that further limits the exam. Three limited sequences of the forefoot submitted. Bone: Questionable decreased fatty marrow signal involving the phalanges of the fifth digit from the proximal metaphysis of the proximal phalanx distally. It is difficult to assess if there is corresponding bone marrow edema or if the corresponding increased fluid sensitive signal is artifact. Joints: Mild scattered degenerative changes. Soft Tissues: Mild nonspecific soft tissue edema. IMPRESSION: 1. Questionable findings which could reflect osteomyelitis, this is a markedly limited evaluation, the patient could not tolerate the routine MRI evaluation even in the setting of sedation. 2. Recommend correlation with routine 3 view radiographs of the foot. After the foot radiographs, if further imaging evaluation is warranted, consider a 3 phase nuclear medicine bone scan. Signed by: Dr. Figueroa Kelly D.O., M.M.M. on 11/11/2018 5:09 PM
[2018-11-12] VITALS (9 sets, daily range): BP systolic 102–160; BP diastolic 57–79
[2018-11-12] MEDS: ATORVASTATIN 40 MG TAB PO SCH ×2 (00:10→20:27)
[2018-11-12 03:39] LABS: BASOPHILS # (AUTO) 0.1 (0.0-0.1); BASOPHILS % 0.8 % (0.0-1.0); EOSINOPHILS # (AUTO) 0.2 (0.0-0.4); EOSINOPHILS % 3.2 % (0.0-6.0); HEMATOCRIT 31.9 % (34.2-44.1); HEMOGLOBIN 10.1 g/dL (12.0-16.0); LYMPHOCYTES # (AUTO) 0.8 (1.0-3.2); MEAN CORPUSCULAR HEMOGLOBIN 30.3 pg (28-32); MEAN CORPUSCULAR HGB CONC 31.7 g/dL (31-35); MEAN CORPUSCULAR VOLUME 95.8 fL (81-99); MONOCYTES # (AUTO) 0.6 (0.2-0.8); MONOCYTES % 8.8 % (4.4-11.3); NEUTROPHILS # (AUTO) 4.7 (2.1-6.9); NEUTROPHILS % 73.9 % (38.7-80.0); PLATELET COUNT 117 x10e3/uL (140-360); RED BLOOD COUNT 3.33 x10e6/uL (3.6-5.1); RED CELL DISTRIBUTION WIDTH 17.9 % (11.7-14.4)
[2018-11-12] MEDS: DEXTROSE 10% 1,000 ML IV SCH ×2 (03:45→14:09)
[2018-11-12 03:53] LABS: ANION GAP 15.4 mmol/L (8-16); CREATININE, SERUM 4.37 mg/dL (0.57-1.11); POTASSIUM 4.4 mmol/L (3.5-5.1)
[2018-11-12] MEDS: LEVOTHYROXINE SODIUM 100 MCG TAB PO SCH (06:32)
[2018-11-12] MEDS: INSULIN LISPRO 100 UNIT/1 ML 3ML VIAL SQ SCH ×4 (07:30→19:55)
[2018-11-12] MEDS: FAMOTIDINE 20 MG TAB PO SCH ×2 (09:13→16:27)
[2018-11-12] MEDS: PANTOPRAZOLE SOD 40 MG TABEC PO SCH (09:13)
[2018-11-12] MEDS: CLOPIDOGREL BISULFATE 75 MG TAB PO SCH (09:14)
[2018-11-12] MEDS: ONDANSETRON HCL INJ 2MG/ML 2ML 2 MG/ML VIAL IV PRN ×3 (09:14→21:20)
[2018-11-12] MEDS: METOPROLOL TARTRATE 25 MG TAB PO SCH (09:14)
--- NOTE | 2018-11-12 09:41 | Progress Note ---
DATE: 11/12/2018 SUBJECTIVE: This is a 68-year-old female with past medical history of type 2 diabetes, peripheral neuropathy, peripheral vascular disease, hypertension, and end-stage renal disease. She is seen this morning at the bedside and again appears lethargic and is moaning, unable to fully assess the patient. OBJECTIVE: VITAL SIGNS: Today, temperature 97, heart rate 63, respiratory rate 16, blood pressure 138/60, pulse ox 96% on room air. PROBLEM FOCUSED LOWER EXTREMITY PHYSICAL EXAM: Vascular, dorsalis pedis and posterior tibial pulses are nonpalpable. Capillary refill time is delayed to the digits, specifically 3, 4, and 5. Ulcerations are present to the lateral aspect of the right ankle as well as the medial aspect of the hallux and 2nd digit. Negative erythema or edema is noted at this time. Foot is cool to the touch. NEUROLOGICAL: Sensation is diminished to light touch; however, pain on palpation is noted to the ulcerations. MUSCULOSKELETAL: Left ewyba-lft-pvpt amputation. DERMATOLOGICAL: Multiple ulcerations are noted to the patient's right foot, specifically in the 3rd and 4th interspaces with probing necrotic tissue. There is malodor present. The wounds do appear to be slightly improving with daily dressing changes. Cyanotic discoloration is continued to be noted to the distal lateral aspect of the patient's right foot and is cool to the touch. The skin remains taut and shiny. LABORATORY DATA: White blood cell count is 6.33, hemoglobin 10.1, hematocrit 31.9, and platelet count is 117. IMAGING: Right foot MRI reveals questionable findings which could reflect osteomyelitis, markedly limited evaluation. The patient could not tolerate routine MRI evaluation, even in the setting of sedation. Recommend correlation with 3 radiographs of the foot. Radiologist is recommending a 3-phase nuclear bone scan. Arterial Dopplers reveal severe peripheral vascular disease. PLAN: The patient was seen and evaluated. Discussed condition, labs and imaging with the patient in detail. The right foot was cleansed with Hibiclens and Betadine wet-to-dry dressing change was performed. The wounds appear to be slightly improved. MRI shows questionable osteomyelitis, however, exam is limited and the bone scan is recommended. Arterial Dopplers reveal significant peripheral vascular disease. Cardiology is following and plan for possible angiography with intervention is planned. Again discussed prognosis with the patient in detail that is poor for any foot amputation. However, the patient is adamantly refusing amputation at this time and becomes agitated and irritated when discussing it. The Podiatry Service will continue to monitor as an inpatient. YEVGENIY Dumont/MODL /[id number]
[2018-11-12] MEDS ORDERED: SENNOSIDES 8.6 MG TAB PO PRN (12:15)
[2018-11-12] MEDS: DOCUSATE SODIUM 100 MG CAP PO SCH (12:15)
[2018-11-12] MEDS ORDERED: CEFTRIAXONE SOD 1 GM VIAL IV SCH (12:15)
[2018-11-12] MEDS: CEFTRIAXONE SOD 1 GM/NS 50 ML 50 ML IV SCH (13:56)
[2018-11-12] MEDS: NYSTATIN 100,000 UNITS/GM CRM 30GM TUBE TOP SCH (17:09)
[2018-11-13] VITALS (8 sets, daily range): BP systolic 127–156; BP diastolic 66–86
[2018-11-13] MEDS: LEVOTHYROXINE SODIUM 100 MCG TAB PO SCH (04:52)
[2018-11-13] MEDS: INSULIN LISPRO 100 UNIT/1 ML 3ML VIAL SQ SCH ×4 (07:30→20:14)
[2018-11-13] MEDS: CLOPIDOGREL BISULFATE 75 MG TAB PO SCH (08:14)
[2018-11-13] MEDS: FAMOTIDINE 20 MG TAB PO SCH ×2 (08:14→16:11)
[2018-11-13] MEDS: NYSTATIN 100,000 UNITS/GM CRM 30GM TUBE TOP SCH ×2 (08:14→17:08)
[2018-11-13] MEDS: PANTOPRAZOLE SOD 40 MG TABEC PO SCH (08:14)
[2018-11-13] MEDS: DOCUSATE SODIUM 100 MG CAP PO SCH (09:00)
[2018-11-13] MEDS: METOPROLOL TARTRATE 25 MG TAB PO SCH (09:00)
[2018-11-13 10:04] LABS: BASOPHILS % 0.6 % (0.0-1.0); EOSINOPHILS # (AUTO) 0.3 (0.0-0.4); EOSINOPHILS % 4.3 % (0.0-6.0); HEMATOCRIT 33.1 % (34.2-44.1); HEMOGLOBIN 10.7 g/dL (12.0-16.0); LYMPHOCYTES % 15.2 % (18.0-39.1); MEAN CORPUSCULAR HEMOGLOBIN 30.8 pg (28-32); MEAN CORPUSCULAR HGB CONC 32.3 g/dL (31-35); MEAN CORPUSCULAR VOLUME 95.4 fL (81-99); MONOCYTES # (AUTO) 0.6 (0.2-0.8); MONOCYTES % 9.1 % (4.4-11.3); NEUTROPHILS # (AUTO) 4.4 (2.1-6.9); NEUTROPHILS % 70.3 % (38.7-80.0); PLATELET COUNT 154 x10e3/uL (140-360); RED BLOOD COUNT 3.47 x10e6/uL (3.6-5.1); RED CELL DISTRIBUTION WIDTH 17.7 % (11.7-14.4)
[2018-11-13 10:07] LABS: ANION GAP 17.7 mmol/L (8-16); CALCIUM 8.1 mg/dL (8.4-10.2); CREATININE, SERUM 5.49 mg/dL (0.57-1.11); POTASSIUM 4.7 mmol/L (3.5-5.1)
[2018-11-13] MEDS: ONDANSETRON HCL INJ 2MG/ML 2ML 2 MG/ML VIAL IV PRN (10:27)
--- NOTE | 2018-11-13 10:57 | Progress Note ---
DATE: 11/13/2018 SUBJECTIVE: A 68-year-old female with past medical history of type 2 diabetes, peripheral neuropathy, peripheral vascular disease, hypertension, end-stage renal disease, seen this morning in the bedside chair. Continues to remain lethargic, however, is more vocal today. Denies nausea, vomiting, fever, chills, chest pain, or shortness of breath. PHYSICAL EXAMINATION: GENERAL: Alert and oriented x3, in no apparent distress. VITAL SIGNS: Today; temperature is 96.2, heart rate 60, respiratory rate 18, blood pressure 120/66, and pulse ox is 98% on room air. PROBLEM FOCUSED LOWER EXTREMITY PHYSICAL EXAM: Vascular, dorsalis pedis, and posterior tibial pulses are nonpalpable to the right lower extremity. Capillary refill time is delayed to the digits, specifically 3, 4, and 5. Negative erythema or edema noted at this time. However, foot is cool to the touch. NEUROLOGICAL: Sensation is diminished to light touch, however, pain on palpation is noted to the ulcerations. MUSCULOSKELETAL: Left ovksa-ezi-hveq amputation. DERMATOLOGICAL: Multiple ulcerations are noted to the patient's right foot. The deepest are in the 3rd and 4th interspaces with probing, necrotic tissue. Malodor is present. The wounds do appear to be slightly improving after Hibiclens and daily dressing changes with Betadine. The cyanotic discoloration is continued at the distal lateral aspect of the forefoot. It is cool to the touch. The skin is taut and shiny. Ulcerations are also noted to the right hallux as well as the right lateral ankle. LABORATORY DATA: White blood cell count is 6.3, hemoglobin 10.1, hematocrit 31.9, and platelet count 117. Sodium 133, potassium 4.4, chloride 94, BUN 24, creatinine 4.37, glucose 124, and hemoglobin A1c is 5.6. ASSESSMENT: 1. Right foot gangrene with likely osteomyelitis. 2. Severe peripheral vascular disease. 3. Type 2 diabetes with peripheral neuropathy. 4. End-stage renal disease. PLAN: The patient was seen and evaluated. Discussed condition, labs and treatment options with the patient in detail. The right foot was again cleansed with Hibiclens and dressed with Betadine wet-to-dry fashion. The wounds appeared to be slightly improved. MRI reveals a questionable osteomyelitis, but exam was limited due to motion. Bone scan is recommended. Arterial Dopplers reveal significant peripheral vascular disease. Cardiology is following and an angiogram is planned. Again, discussed prognosis wit the patient in detail and that it is poor for any foot amputation. The patient adamantly refuses any sort of amputation at this time. Discussed with the patient risks and hazards of no amputation include further infection, gangrene, sepsis, loss of limb, and loss of life. The patient understands. Podiatry Service will continue to monitor as an inpatient. YEVGENIY Dumont/BEHZAD /[id number]
[2018-11-13] MEDS: CEFTRIAXONE SOD 1 GM/NS 50 ML 50 ML IV SCH (13:48)
[2018-11-13] MEDS ORDERED: ASCORBIC ACID 500 MG TAB PO SCH (17:00)
--- NOTE | 2018-11-13 18:19 | Progress Note ---
DATE: 11/13/2018 Cardiology Progress Note SUBJECTIVE: The patient undergoing hemodialysis, feeling better today, more alert. No chest pain. No shortness of breath. OBJECTIVE: VITAL SIGNS: Temperature is 96.2, heart rate is 60, respirations 18, blood pressure is 128/66, and oxygen saturation is 98% on room air. GENERAL: Well-appearing elderly woman, lying comfortably in bed. Undergoing hemodialysis. CARDIOVASCULAR: Regular rate and rhythm. LUNGS: Diminished breath sounds at bases. ABDOMEN: Soft, nontender, and nondistended. EXTREMITIES: Amputation of right foot wound. LABORATORY DATA: 10.7, creatinine is 5.49. IMPRESSION: 1. Peripheral artery disease with diabetic foot wound. 2. Chronic systolic congestive heart failure. 3. Hypertension. 4. Hyperlipidemia. 5. Diabetes mellitus. 6. End-stage renal disease. RECOMMENDATIONS: The patient has severe peripheral artery disease based on arterial Doppler. Recommend peripheral angiography with possible intervention. Podiatry is following along. Her echocardiogram also showed left ventricular systolic function. Continue current cardiovascular medications and add an FILIPE inhibitor if okay with Nephrology. Her angiogram can be done this . Schuyler Camejo DO BM/MODL /[id number]
[2018-11-13] MEDS: ATORVASTATIN 40 MG TAB PO SCH (20:13)
[2018-11-14 04:00] VITALS: BP 174/74
[2018-11-14] MEDS: LEVOTHYROXINE SODIUM 100 MCG TAB PO SCH (06:20)
[2018-11-14] MEDS: INSULIN LISPRO 100 UNIT/1 ML 3ML VIAL SQ SCH ×4 (07:30→21:00)
[2018-11-14 07:32] VITALS: BP 161/71
[2018-11-14] MEDS: DOCUSATE SODIUM 100 MG CAP PO SCH (09:00)
[2018-11-14] MEDS: NYSTATIN 100,000 UNITS/GM CRM 30GM TUBE TOP SCH ×2 (09:00→17:54)
[2018-11-14] MEDS: ONDANSETRON HCL INJ 2MG/ML 2ML 2 MG/ML VIAL IV PRN (10:55)
[2018-11-14 11:38] VITALS: BP 158/90
[2018-11-14 12:08] VITALS: BP 161/71
[2018-11-14] MEDS: PANTOPRAZOLE SOD 40 MG TABEC PO SCH (12:42)
[2018-11-14] MEDS: FOLIC ACID/CYANOCOB/PYRIDOXINE TAB PO SCH (12:42)
[2018-11-14] MEDS: CLOPIDOGREL BISULFATE 75 MG TAB PO SCH (12:42)
[2018-11-14] MEDS: FAMOTIDINE 20 MG TAB PO SCH ×2 (12:42→17:50)
[2018-11-14] MEDS: METOPROLOL TARTRATE 25 MG TAB PO SCH (12:42)
[2018-11-14] MEDS: CEFTRIAXONE SOD 1 GM/NS 50 ML 50 ML IV SCH (13:12)
[2018-11-14 15:40] VITALS: BP 158/88
[2018-11-14 20:00] VITALS: BP 135/67
[2018-11-14] MEDS: ATORVASTATIN 40 MG TAB PO SCH (20:38)
[2018-11-15] VITALS (9 sets, daily range): BP systolic 118–180; BP diastolic 56–104
[2018-11-15 04:52] LABS: BASOPHILS % 0.6 % (0.0-1.0); EOSINOPHILS # (AUTO) 0.3 (0.0-0.4); EOSINOPHILS % 3.9 % (0.0-6.0); HEMATOCRIT 33.8 % (34.2-44.1); HEMOGLOBIN 10.6 g/dL (12.0-16.0); LYMPHOCYTES # (AUTO) 1.3 (1.0-3.2); LYMPHOCYTES % 20.6 % (18.0-39.1); MEAN CORPUSCULAR HEMOGLOBIN 30.8 pg (28-32); MEAN CORPUSCULAR HGB CONC 31.4 g/dL (31-35); MEAN CORPUSCULAR VOLUME 98.3 fL (81-99); MONOCYTES # (AUTO) 0.8 (0.2-0.8); MONOCYTES % 11.9 % (4.4-11.3); NEUTROPHILS # (AUTO) 4.1 (2.1-6.9); NEUTROPHILS % 62.5 % (38.7-80.0); PLATELET COUNT 117 x10e3/uL (140-360); RED BLOOD COUNT 3.44 x10e6/uL (3.6-5.1); RED CELL DISTRIBUTION WIDTH 17.5 % (11.7-14.4)
[2018-11-15 05:08] LABS: ANION GAP 20.8 mmol/L (8-16); CREATININE, SERUM 4.67 mg/dL (0.57-1.11); POTASSIUM 4.8 mmol/L (3.5-5.1)
[2018-11-15] MEDS: LEVOTHYROXINE SODIUM 100 MCG TAB PO SCH ×2 (06:00→06:09)
[2018-11-15] MEDS: INSULIN LISPRO 100 UNIT/1 ML 3ML VIAL SQ SCH ×4 (07:30→21:00)
[2018-11-15] MEDS: FAMOTIDINE 20 MG TAB PO SCH ×2 (07:30→16:30)
[2018-11-15] MEDS: PANTOPRAZOLE SOD 40 MG TABEC PO SCH (07:30)
[2018-11-15 08:45] LABS: PLATELET MORPHOLOGY COMMENT NORMAL
[2018-11-15 08:46] LABS: ANISOCYTOSIS SLIGHT; BURR CELLS SLIGHT; OVALOCYTES FEW; POIKILOCYTOSIS MODERATE; RBC MORPHOLOGY COMMENT ABNORMAL; SCHISTOCYTES FEW; TEAR DROP CELLS FEW
[2018-11-15] MEDS: NYSTATIN 100,000 UNITS/GM CRM 30GM TUBE TOP SCH ×2 (09:00→17:00)
[2018-11-15] MEDS: CLOPIDOGREL BISULFATE 75 MG TAB PO SCH (09:00)
[2018-11-15] MEDS: FOLIC ACID/CYANOCOB/PYRIDOXINE TAB PO SCH (09:00)
[2018-11-15] MEDS: METOPROLOL TARTRATE 25 MG TAB PO SCH (09:00)
[2018-11-15] MEDS: DOCUSATE SODIUM 100 MG CAP PO SCH (09:00)
[2018-11-15] MEDS: DEXTROSE 50% SYRINGE 50 ML IV PRN ×2 (11:00→15:00)
[2018-11-15] MEDS ORDERED: MIDAZOLAM HCL 2 MG/2 ML VIAL ONE ×2 (11:04→13:41)
[2018-11-15] MEDS ORDERED: LIDOCAINE HCL 2% LOCAL 20 ML VIAL ONE ×2 (11:05→12:26)
[2018-11-15] MEDS ORDERED: IOPAMIDOL 300MG/ML 100 ML INFUS..BTL IV ONE ×2 (11:05→13:41)
[2018-11-15] MEDS ORDERED: FENTANYL CITRATE/PF 100MCG/2 ML INJ ONE (11:05)
[2018-11-15] MEDS ORDERED: HEPARIN SOD/SOD CHLORIDE 0 ML ONE (11:05)
[2018-11-15] MEDS ORDERED: SODIUM CHLORIDE 0.9% 1000ML 1,000 ML ONE ×2 (11:06→13:28)
[2018-11-15] MEDS ORDERED: HEPARIN SOD/SOD CHLORIDE 2,000 ML ONE (12:27)
[2018-11-15] MEDS ORDERED: HEPARIN SOD (PORCINE) 1000 UNIT/ML 30ML ONE (13:23)
[2018-11-15] MEDS ORDERED: VERAPAMIL HCL 2.5 MG/ML 2 ML VIAL ONE (13:28)
[2018-11-15] MEDS ORDERED: NITROGLYCERIN/D5W 200 MCG/ML 250 ML ONE (13:28)
[2018-11-15] MEDS: CEFTRIAXONE SOD 1 GM/NS 50 ML 50 ML IV SCH ×2 (13:30→21:26)
--- NOTE | 2018-11-15 18:58 | Progress Note ---
DATE: 11/15/2018 Cardiology Progress Note SUBJECTIVE: The patient denies any chest pain or shortness of breath. OBJECTIVE: VITAL SIGNS: Temperature is 98.4, heart rate 67, respirations are 20, blood pressure is 175/104, and oxygen saturation 94% on room air. GENERAL: Well appearing, in no apparent distress. CARDIOVASCULAR: Regular rate and rhythm. LUNGS: Clear to auscultation. ABDOMEN: Soft, nontender, and nondistended. EXTREMITIES: Left BKA. Right foot wound. LABORATORY DATA: Reviewed. CARDIOVASCULAR MEDICATIONS: Reviewed. Coronary angiography today revealed multivessel coronary artery disease. Peripheral angiography revealed chronic total occlusions of the right posterior tibial and anterior tibial vessels. The peroneal fills the entire pedal arch. The proximal peroneal had a severe 90% stenosis and underwent angioplasty. IMPRESSION: 1. Peripheral artery disease with diabetic foot wounds, status post intervention of the peroneal artery. 2. Chronic systolic congestive heart failure. 3. Multivessel coronary artery disease. 4. Hypertension. 5. Hyperlipidemia. 6. Diabetes mellitus. 7. End-stage renal disease, on hemodialysis. RECOMMENDATIONS: 1. Continue dual antiplatelet therapy and statin medications. 2. Continue heart failure medications. 3. Volume management with hemodialysis. 4. She underwent intervention of the right peroneal artery, which feeds the plantar arch. If required, may consider attempting revascularization of the anterior tibial from a pedal approach. In regard to her cardiac status, she has severe multivessel coronary artery disease and congestive heart failure. She will need to be referred for possible bypass surgery after this hospitalization. DO JANIA Penaloza/JAYANTL /[id number]
[2018-11-15] MEDS: ATORVASTATIN 40 MG TAB PO SCH (21:26)
[2018-11-16] VITALS (7 sets, daily range): BP systolic 122–145; BP diastolic 57–67
--- NOTE | 2018-11-16 00:24 | Operative Report ---
DATE OF PROCEDURE: 11/15/2018 SURGEON: Schuyler Camejo DO PROCEDURES PERFORMED: 1. Conscious sedation 90 minutes. 2. Selective coronary angiography x2. 3. Abdominal aortography. 4. Third-order peripheral angiography. 5. Orbital atherectomy and percutaneous transluminal angioplasty of the peroneal artery of the right lower extremity. 6. Unilateral extremity angiography. PREPROCEDURE DIAGNOSES: 1. Congestive heart failure. 2. Peripheral artery disease. POSTPROCEDURE DIAGNOSES: 1. Congestive heart failure. 2. Peripheral artery disease. ESTIMATED BLOOD LOSS: Less than 20 mL. SPECIMENS REMOVED: None. PROCEDURE IN DETAIL: After informed consent was obtained, the patient was brought to the cardiac catheterization laboratory in a fasting and nonsedated state. Bilateral groins were prepped and draped in the usual sterile fashion. A 2% lidocaine was instilled over the left anterior groin for local anesthesia. Using a micropuncture needle, the left common femoral artery was accessed via modified Seldinger technique and a 6-Yoruba sheath was placed. Next, diagnostic coronary angiography was performed using a JL4 and 3DRC catheter. Next, I performed abdominal aortography, which revealed moderate iliac disease. I crossed up and over the bifurcation and part of the Omni Flush catheter in the third order position and diagnostic imaging confirmed severe tibial vessel disease. Decision was made to perform a peripheral intervention. The patient received systemic heparin for therapeutic anticoagulation. A 6-Yoruba sheath was crossed up and over the iliac bifurcation. Next, using a Teleport catheter, I crossed a Whisper wire across the peroneal stenosis and performed orbital atherectomy with a 1.5 CSI diamondback bar. Next, I performed balloon angioplasty with a 3.5 mm balloon. Final imaging confirmed excellent angioplasty results with antegrade flow distally. The patient tolerated the procedure well with no immediate complications and transported back to room in stable condition. CORONARY ANATOMY: 1. Left main coronary artery is patent without significant disease. 2. The mid portion of the left anterior descending coronary has a 70% stenosis. 3. Left circumflex coronary artery has a stent in the proximal portion with too severe 70% to 80% tandem stenosis. This provides two obtuse marginal vessels. 4. Right coronary artery is a dominant vessel and provides posterior descending coronary artery. There is a proximal 70% RCA stenosis, mid 70% RCA stenosis, and a 70% stenosis in the distal posterior descending coronary artery. PERIPHERAL ANGIOGRAPHY: 1. Abdominal aorta is ectatic. 2. The right iliac system has diffuse disease, which is mild to moderate in severity. 3. The right iliac system has an ostial 50% moderate stenosis with no gradient present. The external iliac has a 50% to 60% moderate stenosis with no gradient present. The right superficial femoral artery has a long stent extending from the proximal portion all the way to the popliteal vessel. There is a distal dissection that has nonflow limiting past the stent. The anterior tibial artery is 100% occluded. There is a severe 90% calcified stenosis of the peroneal. The posterior tibial vessel is occluded throughout its course. The peroneal vessel feeds collaterals and fills the entire plantar arch. 4. The left superficial femoral artery is occluded. IMPRESSION: 1. Severe multivessel coronary artery disease. 2. Severe peripheral artery disease, status post atherectomy and angioplasty of the peroneal artery. RECOMMENDATIONS: Continue dual anti-platelet therapy. DO JANIA Penaloza/MODL /[id number]
[2018-11-16 03:31] LABS: BASOPHILS % 0.5 % (0.0-1.0); EOSINOPHILS # (AUTO) 0.2 (0.0-0.4); EOSINOPHILS % 1.9 % (0.0-6.0); HEMATOCRIT 30.8 % (34.2-44.1); HEMOGLOBIN 9.8 g/dL (12.0-16.0); LYMPHOCYTES # (AUTO) 0.7 (1.0-3.2); LYMPHOCYTES % 8.9 % (18.0-39.1); MEAN CORPUSCULAR HGB CONC 31.8 g/dL (31-35); MEAN CORPUSCULAR VOLUME 97.5 fL (81-99); MONOCYTES # (AUTO) 0.5 (0.2-0.8); MONOCYTES % 5.7 % (4.4-11.3); NEUTROPHILS # (AUTO) 6.7 (2.1-6.9); NEUTROPHILS % 82.6 % (38.7-80.0); PLATELET COUNT 79 x10e3/uL (140-360); RED BLOOD COUNT 3.16 x10e6/uL (3.6-5.1); RED CELL DISTRIBUTION WIDTH 17.4 % (11.7-14.4)
[2018-11-16 03:45] LABS: ANION GAP 14.3 mmol/L (8-16); CREATININE, SERUM 3.64 mg/dL (0.57-1.11); POTASSIUM 4.3 mmol/L (3.5-5.1)
[2018-11-16 04:49] LABS: EOSINOPHILS % (MANUAL) 1 % (0-7); LYMPHOCYTES % (MANUAL) 9 % (19-48); MONOCYTES % (MANUAL) 4 % (3.4-9.0); NEUTROPHILS % (MANUAL) 86 % (40-74); PLATELET ESTIMATE MARKEDLY DECREASED; PLATELET MORPHOLOGY COMMENT FEW GIANT
[2018-11-16 04:50] LABS: RBC MORPHOLOGY COMMENT NORMAL
[2018-11-16] MEDS: LEVOTHYROXINE SODIUM 100 MCG TAB PO SCH (06:08)
[2018-11-16] MEDS: INSULIN LISPRO 100 UNIT/1 ML 3ML VIAL SQ SCH ×4 (07:30→20:13)
[2018-11-16] MEDS: FAMOTIDINE 20 MG TAB PO SCH ×2 (07:30→16:30)
[2018-11-16] MEDS: PANTOPRAZOLE SOD 40 MG TABEC PO SCH (07:30)
[2018-11-16] MEDS: DOCUSATE SODIUM 100 MG CAP PO SCH (09:49)
[2018-11-16] MEDS: METOPROLOL TARTRATE 25 MG TAB PO SCH (09:50)
[2018-11-16] MEDS: CLOPIDOGREL BISULFATE 75 MG TAB PO SCH (09:50)
[2018-11-16] MEDS: NYSTATIN 100,000 UNITS/GM CRM 30GM TUBE TOP SCH ×2 (09:50→17:00)
[2018-11-16] MEDS: FOLIC ACID/CYANOCOB/PYRIDOXINE TAB PO SCH (09:50)
--- NOTE | 2018-11-16 10:51 | Progress Note ---
DATE: 11/16/2018 SUBJECTIVE: This is a 68-year-old female with past medical history of type 2 diabetes, peripheral neuropathy, peripheral vascular disease, hypertension, and end-stage renal disease, who is seen this morning at bedside. She is very lethargic. Continues to relate pain to her right foot. Denies nausea, vomiting, fever, chills, chest pain, or shortness of breath. PHYSICAL EXAMINATION: GENERAL: Alert and oriented, in no apparent distress. VITAL SIGNS: Today; temperature 98.2, heart rate 60, respiratory rate 16, blood pressure 138/65, and pulse ox 97% on room air. PROBLEM FOCUSED LOWER EXTREMITY PHYSICAL EXAM: Vascular, dorsalis pedis and posterior tibial pulses are not palpable. Capillary refill time is delayed to the digits, specifically 3, 4, and 5 with cyanotic discoloration. Negative erythema and edema are noted at this time. Foot is cool to the touch. NEUROLOGICAL: Sensation is diminished to light touch; however, pain on palpation is noted during the dressing changes. MUSCULOSKELETAL: Left xbcpo-bbq-ezas amputation. DERMATOLOGICAL: Multiple ulcerations of the patient's right foot, specifically in the third and fourth interspaces with the deep probing necrotic tissue with malodor present. The wounds are slightly improved and less macerated after daily dressing changes with Betadine wet-to-dry. Cyanotic discoloration is noted. New superficial ulcerations are noted to the medial aspect of the right hallux and medial aspect of the right first MPJ in the medial arch. Ulceration is noted to the lateral aspect of the right ankle as well. LABORATORY DATA: White blood cell count is 8.09, hemoglobin 9.8, hematocrit 30.8, and platelet count 79. ASSESSMENT: 1. Right foot gangrene with likely osteomyelitis. 2. Severe peripheral vascular disease. 3. Type 2 diabetes with peripheral neuropathy. 4. End-stage renal disease. PLAN: The patient was seen and evaluated. Discussed condition, labs, and treatment options with the patient in detail. The right foot was cleansed with Hibiclens and dressed with Betadine wet-to-dry. The wounds appear to be slightly improved; however, multiple new ulcerations are formed. MRI reveals questionable osteomyelitis, but exam is limited due to motion. Bone scan is pending. Arterial Dopplers revealed significant vascular disease. The patient was taken for angiogram yesterday per Dr. Camejo and was noted to be severe peripheral vascular disease to the posterior tibial and anterior tibial artery. The peroneal artery was able to be improved to near 100% flow, but likely only one vessel to the foot. The patient continues to be adamantly opposed to any sort of amputation to the right lower extremity. Discussed with the patient risks and hazards of no amputation including infection, gangrene, sepsis, loss of life, and loss of limb. The patient understands. The patient is going to be transferred to medical resort today, which is stable from the Podiatry standpoint to do so. The Podiatry Service will continue to monitor as an inpatient. YEVGENIY Dumont/BEHZAD /[id number]
--- NOTE | 2018-11-16 16:47 | Diagnostic Imaging Report ---
Bone Scan, three-phase - feet and ankles Reason for exam: 68 F with diabetic foot ulcer between the 3rd, 4th and 5th right toes. Radiopharmaceutical: Tc-99m MDP 27.5 mCi Comparison: MRI right foot 11/11/2018 Following intravenous administration of the radiopharmaceutical, dynamic flow and immediate blood pool images of the right foot and ankle followed by 4-hour delayed spot images were obtained. Flow and blood pool images show focal mildly increased tracer activity at the 3rd, 4th and 5th toes. The delayed planar images show focal moderately increased tracer at the 4th and 5th right toes and more mildly increased tracer at the 3rd and 4th toes. Impression: Scan findings are worrisome for osteomyelitis in the 3rd-5th toes of the right foot, however, 3-phase bone scan lacks specificity in the setting of diabetic foot ulcers. A labeled white blood cell study would add specificity to the evaluation. Signed by: Dr. Neeru Hernandez M.D. on 11/16/2018 4:43 PM
[2018-11-16] MEDS ORDERED: LIDOCAINE HCL 1% LOCAL INJ 20 ML VIAL ONE (17:13)
[2018-11-16] MEDS ORDERED: SODIUM CHLORIDE 0.9% 250ML 250 ML ONE (17:14)
--- NOTE | 2018-11-16 18:28 | Progress Note ---
DATE: 11/16/2018 Cardiology Progress Note SUBJECTIVE: The patient feeling better. Denies any chest pain or shortness of breath. OBJECTIVE: VITAL SIGNS: Temperature is 98.1, heart rate is 60, respirations are 16, blood pressure is 145/67, and oxygen saturation is 99% on room air. GENERAL: Well appearing, in no apparent distress. CARDIOVASCULAR: Regular rate and rhythm. LUNGS: Diminished breath sounds at bases. ABDOMEN: Soft, nontender, and nondistended. EXTREMITIES: Left ekvdu-oum-lyva amputation. Right foot wound is dressed. CARDIOVASCULAR MEDICATIONS: Reviewed. RADIOLOGIC DATA: Nuclear medicine scan shows third through fifth toes with osteomyelitis. TELEMETRY MONITORING: Revealed normal sinus rhythm with PVCs. IMPRESSION: 1. Peripheral arterial disease with diabetic foot wound and osteomyelitis, status post intervention of the peroneal artery. 2. Chronic systolic congestive heart failure. 3. Multivessel coronary artery disease. 4. Hypertension. 5. Hyperlipidemia. 6. Diabetes mellitus. 7. End-stage renal disease, on hemodialysis. 8. Premature ventricular complexes. RECOMMENDATIONS: 1. Continue current cardiovascular medications. The patient has multivessel coronary artery disease and will continue aspirin, statin, Plavix, and beta blockers. 2. Continue to titrate heart failure medications. I changed metoprolol tartrate to carvedilol. She is not on FILIPE inhibitor, which she would benefit from. We will ask Nephrology to comment on this. 3. Volume management with hemodialysis. 4. Continue podiatry care, possible amputation. 5. The patient has severe multivessel coronary artery disease and congestive heart failure. The patient will be referred for surgical bypass as an outpatient. If she deems not to be a candidate, she will need multivessel coronary intervention. Schuyler Camejo DO BM/MODL /[id number]
[2018-11-16] MEDS: CEFTRIAXONE SOD 1 GM/NS 50 ML 50 ML IV SCH (20:13)
[2018-11-16] MEDS: ATORVASTATIN 40 MG TAB PO SCH (20:13)
[2018-11-17] MEDS ORDERED: EPOETIN ALFA 10000 UNIT/ML VIAL SC SCH (07:45)
--- NOTE | 2018-11-19 08:41 | Diagnostic Imaging Report ---
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 IMPRESSION: Insertion of right-sided double lumen tunneled central venous catheter, with tip in the expected location of the superior vena cava. Plan: The catheter may be used immediately. PROCEDURE SUMMARY: - Venous access with ultrasound guidance - Tunneled central venous catheter insertion with fluoroscopic guidance - Additional procedure(s): None PROCEDURE DETAILS: Pre-procedure Consent: Informed consent for the procedure including risks, benefits and alternatives was obtained and time-out was performed prior to the procedure. Preparation (MIPS): The site was prepared and draped using all elements of maximal sterile barrier technique including sterile gloves, sterile gown, cap, mask, large sterile sheet, sterile ultrasound probe cover, hand hygiene and cutaneous antisepsis with 2% chlorhexidine. Medical reason for site preparation exception (MIPS): Not applicable Anesthesia/sedation Level of anesthesia/sedation: No sedation Access Local anesthesia was administered. The vessel was sonographically evaluated and determined to be patent. Real time ultrasound was used to visualize needle entry into the vessel and a permanent image . Vein accessed: Internal jugular vein Access technique: Micropuncture set with 21 gauge needle Catheter placement An incision was made near the venous access site and the catheter was tunneled subcutaneously to the venous access site and trimmed to appropriate length. The catheter was advanced via a peel-away sheath into the vein under fluoroscopic guidance. Catheter tip location was fluoroscopically verified and a permanent image was stored. Catheter placed: 6Fr Proline power injectable central venous catheter Catheter size (Syriac): 6 Catheter flush: Normal saline Closure A sterile dressing was applied. Access site closure technique: Tissue adhesive Catheter securement technique: Non-absorbable suture Contrast Contrast agent: None Radiation Dose Fluoroscopy time (minutes): 1.9 Reference air kerma (mGy): 7.4 Additional Details Additional description of procedure: None Equipment details: None Specimens removed: None Estimated blood loss (mL): Less than 10 Standardized report: [email or web address] Attestation Signer name: Isael Zhu MD I attest that I was present for the entire procedure. I reviewed the stored images and agree with the report as written. Signed by: Isael Zhu MD on 11/19/2018 8:37 AM
--- NOTE | 2018-11-20 05:32 | Discharge Summary ---
ADMISSION DIAGNOSES: End-stage renal disease with missed dialysis treatment and fluid overload, hyperkalemia, hypertension with end-stage renal disease, hyperlipidemia, type 2 diabetes with end-stage renal disease, dizziness, right foot gangrene necrosis and ulcers present on admission, and nausea. DISCHARGE DIAGNOSES: End-stage renal disease with missed dialysis treatment and fluid overload, hyperkalemia, hypertension with end-stage renal disease, hyperlipidemia, type 2 diabetes with end-stage renal disease, dizziness, right foot gangrene necrosis and ulcers present on admission, and nausea, Klebsiella pneumoniae urinary tract infection, present on admission, Proteus mirabilis of the right foot ulcer present on admission, severe multi-vessel coronary artery disease, severe peripheral artery disease, status post arthrectomy and angioplasty of the peroneal artery on the right lower extremity. HISTORY: End-stage renal disease with dialysis Monday, , Monday; hypertension; hyperlipidemia; hypothyroidism; and type 2 diabetes. SURGICAL HISTORY: Left AKA. FAMILY HISTORY: The patient's mom, dad, brothers, and sisters have diabetes. SOCIAL HISTORY: The patient admits to tobacco use. HOSPITAL COURSE: A 68-year-old female complains of nausea and vomiting that began Monday with associated dizziness. Due to feeling ill, she skipped dialysis on Monday. She denies fever, diarrhea, and syncope. On admission, Nephrology was consulted and the patient had dialysis with 2 L pulled off. Her BNP was over 5000 and her chest x-ray showed cardiomegaly. CT of the brain showed no acute findings. Ultrasound of the abdomen showed mild hepatomegaly without focal hepatic abnormality, bilateral renal atrophy and small nonobstructing right renal calculus. CT of the abdomen with and without contrast showed a right lower pole minimally complex nonenhancing cystic lesion with thin internal septation Bosniak category II, large lesion in hepatic segment 8, has nodular peripheral enhancement on delayed phase and may represent a hemangioma, a 1.5 cm hypoattenuating stricture in the left ventricular apex concerning for thrombus. Echo is suggested, probable 5.5 cm uterine fibroid. MRI of the right foot showed questionable findings, which could reflect osteomyelitis. Urine culture came back positive for Klebsiella pneumoniae in the right foot. Culture came back positive for Proteus mirabilis, both sensitive to Rocephin. The patient then had an angio on the right foot due to the gangrene and ulcers. Her angio findings, the patient has severe multivessel coronary artery disease and severe peripheral artery disease, status post arthrectomy and angioplasty of the peroneal artery. The patient is very adamant about refusing any surgery including an amputation of the foot or any toes. She then had a bone scan, which showed possible osteomyelitis due to the refusal of amputation, the patient will discharge to the retirement with six more weeks of IV antibiotics and physical therapy. The patient understands discharge instructions and agrees to plan, vital signs stable, patient afebrile. Dictated by Cyndee Abbott NP MD COLLETTE Soto/BEHZAD /[id number]
== END 2018-11-16 21:28 | DRG 270 ==
LOC: ER 12:44 → INTOOBSV 14:16 → ERHOLD 14:16 → MED/SURG 18:06 → OBSVTOIN 11-10 04:48 → MED/SURG 11-13 18:03
PROVIDERS: ADMIT Internal Medicine; ATTEND Internal Medicine
PROC: 5A1D70Z Performance of Urinary Filtration, Intermittent, Less than 6 Hours Per Day (ICD-10-PCS; 2018-11-08)
PROC: 5A1D70Z Performance of Urinary Filtration, Intermittent, Less than 6 Hours Per Day (ICD-10-PCS; 2018-11-11)
PROC: 5A1D70Z Performance of Urinary Filtration, Intermittent, Less than 6 Hours Per Day (ICD-10-PCS; 2018-11-13)
PROC: 5A1D70Z Performance of Urinary Filtration, Intermittent, Less than 6 Hours Per Day (ICD-10-PCS; 2018-11-14)
PROC: 4A023N7 Measurement of Cardiac Sampling and Pressure, Left Heart, Percutaneous Approach (ICD-10-PCS; principal; 2018-11-15)
PROC: 04CT3ZZ Extirpation of Matter from Right Peroneal Artery, Percutaneous Approach (ICD-10-PCS; 2018-11-15)
PROC: B41D1ZZ Fluoroscopy of Aorta and Bilateral Lower Extremity Arteries using Low Osmolar Contrast (ICD-10-PCS; 2018-11-15)
PROC: B2111ZZ Fluoroscopy of Multiple Coronary Arteries using Low Osmolar Contrast (ICD-10-PCS; 2018-11-15)
PROC: 5A1D70Z Performance of Urinary Filtration, Intermittent, Less than 6 Hours Per Day (ICD-10-PCS; 2018-11-15)
PROC: 02HV33Z Insertion of Infusion Device into Superior Vena Cava, Percutaneous Approach (ICD-10-PCS; 2018-11-16)
PROC: 0JH63XZ Insertion of Tunneled Vascular Access Device into Chest Subcutaneous Tissue and Fascia, Percutaneous Approach (ICD-10-PCS; 2018-11-16)
DX: E11.52 Type 2 diabetes mellitus with diabetic peripheral angiopathy with gangrene (principal); N18.6 End stage renal disease; I50.22 Chronic systolic (congestive) heart failure; N39.0 Urinary tract infection, site not specified; E87.2 Acidosis; I96 Gangrene, not elsewhere classified; T82.855A Stenosis of coronary artery stent, initial encounter; I13.2 Hypertensive heart and chronic kidney disease with heart failure and with stage 5 chronic kidney disease, or end stage renal disease; M86.8X7 Other osteomyelitis, ankle and foot; E87.5 Hyperkalemia; I73.9 Peripheral vascular disease, unspecified; E11.21 Type 2 diabetes mellitus with diabetic nephropathy; E11.621 Type 2 diabetes mellitus with foot ulcer; D63.1 Anemia in chronic kidney disease; R11.2 Nausea with vomiting, unspecified; E11.22 Type 2 diabetes mellitus with diabetic chronic kidney disease; E11.42 Type 2 diabetes mellitus with diabetic polyneuropathy; I70.201 Unspecified atherosclerosis of native arteries of extremities, right leg; Z79.4 Long term (current) use of insulin; Z89.512 Acquired absence of left leg below knee; Z99.2 Dependence on renal dialysis; E11.649 Type 2 diabetes mellitus with hypoglycemia without coma; E03.9 Hypothyroidism, unspecified; J98.01 Acute bronchospasm; B96.1 Klebsiella pneumoniae [K. pneumoniae] as the cause of diseases classified elsewhere; R16.0 Hepatomegaly, not elsewhere classified; N20.0 Calculus of kidney; E11.69 Type 2 diabetes mellitus with other specified complication; B96.4 Proteus (mirabilis) (morganii) as the cause of diseases classified elsewhere
CPT/HCPCS: 36247; 36415; 36558; 37229; 70450; 71045; 74178; 74470; 75625; 75710; 76700; 76937; 77001; 78315; 80048; 80053; 80061; 81001; 82550; 82553; 82948; 83036; 83690; 83735; 83880; 84100; 84439; 84443; 84484; 85025; 85610; 85730; 86704; 86705; 86707; 87071; 87086; 87186; 87205; 87340; 90962; 93005; 93306; 93454; 93880; 93926; 96372; 97139; 99284; A9503; C1724; C1760; C1769; C1887; G0378; J0610; J0696; J1200; J1644; J1817; J1956; J2001; J2060; J2250; J2405; J3010; J7030; J7042; J7050; J7799; Q9967

== ENCOUNTER 2018-12-12 12:38 | Emergency (ER) | payer MEDICARE ==
[~2018-12-12] VITALS: Ht 170.2 cm; Wt 72.6 kg
[~2018-12-12 12:38] MED LIST: ATORVASTATIN CA40 MG PO; CLOPIDOGREL75 MG PO; LEVOTHYROXINE100 MCG PO; LISINOPRIL10 MG PO; LOPRESSOR25 MG PO; PANTOPRAZOLE SO40 MG PO
--- NOTE | 2018-12-12 14:29 | Diagnostic Imaging Report ---
EXAMINATION: CHEST 2 VIEWS INDICATION: Central line positioning COMPARISON: Image guided line placement of 11/16/2018 FINDINGS: LINES/TUBES:Right IJ tunneled dialysis catheter terminates in the right atrium. There has been interval removal attempt of the right IJ tunneled central venous catheter, which has been partially retracted and terminates near the venotomy site. LUNGS:The lungs are well-inflated. No focal consolidation or pulmonary edema. PLEURA:No pleural effusion or pneumothorax. MEDIASTINUM:The cardiomediastinal silhouette is enlarged. Atherosclerotic calcifications of the thoracic aorta. BONES/SOFT TISSUES:No acute osseous injury. ABDOMEN:No free air under the diaphragm. IMPRESSION: Interval removal attempt of right IJ tunneled central venous catheter which has been retracted with tip near the anatomy site. Right IJ tunneled dialysis catheter maintains in good position, terminating in the right atrium. Cardiomegaly. No focal pneumonia or pulmonary edema. Signed by: Isael Zhu MD on 12/12/2018 2:26 PM
--- NOTE | 2018-12-12 15:14 | NUR ---
CALLED [facility] TO REQUEST TRANSPORT TO MEDICAL RESORT AT [facility].
--- NOTE | 2018-12-12 15:27 | Diagnostic Imaging Report ---
PROCEDURE: Tunneled central venous catheter removal Procedural Personnel Attending physician(s): Isael Zhu MD Fellow physician(s): None Resident physician(s): None Advanced practice provider(s): None Pre-procedure diagnosis: Bacteremia Post-procedure diagnosis: Same Indication: Catheter no longer needed Additional clinical history: None Complications: No immediate complications. IMPRESSION: Removal of right-sided tunneled central venous catheter. Plan: Please re-consult interventional radiology if new catheter placement is desired. PROCEDURE SUMMARY: - Tunneled central venous catheter removal - Additional procedure(s): None PROCEDURE DETAILS: Pre-procedure Consent: Informed consent for the procedure including risks, benefits and alternatives was obtained and time-out was performed prior to the procedure. Preparation: The site was prepared and draped using maximal sterile barrier technique including cutaneous antisepsis. Anesthesia/sedation Level of anesthesia/sedation: No sedation Anesthesia/sedation administered by: Not applicable Catheter removal Local anesthesia was administered. The catheter was removed with a combination of traction and blunt dissection. Closure Hemostasis was achieved with manual compression. Sterile dressing(s) applied. Contrast Contrast agent: None Radiation Dose None Additional Details Additional description of procedure: None Equipment details: None Specimens removed: Tunneled central venous catheter. Estimated blood loss (mL): Less than 10 Standardized report: [email or web address] Attestation Signer name: Isael Zhu MD I attest that I was present for the entire procedure. I reviewed the stored images and agree with the report as written. Signed by: Isael Zhu MD on 12/12/2018 3:24 PM
[2018-12-12 17:13] VITALS: BP 170/98
== END 2018-12-12 17:13 | disposition home or self-care (01) ==
LOC: ER 12:38
DX: Z45.2 Encounter for adjustment and management of vascular access device (principal); N18.6 End stage renal disease; Z99.2 Dependence on renal dialysis; I10 Essential (primary) hypertension; E03.9 Hypothyroidism, unspecified; E78.5 Hyperlipidemia, unspecified; I51.7 Cardiomegaly; Z89.612 Acquired absence of left leg above knee
CPT/HCPCS: 36589; 71046; 74470; 99283

== ENCOUNTER 2018-12-21 21:43 | Emergency (ER) | payer MEDICARE ==
[~2018-12-21] VITALS: Ht 170.2 cm; Wt 72.6 kg
[2018-12-21] MEDS ORDERED: TRAMADOL HCL 50 MG TAB PO ONE (22:30)
--- NOTE | 2018-12-21 22:40 | NUR ---
DRESSING APPLIED TO RT PINKY TOE DIABETIC ULCER, PT TOLERATED WELL.
[2018-12-21 22:55] VITALS: BP 148/91
== END 2018-12-21 22:55 | disposition home or self-care (01) ==
LOC: ER 21:43
DX: I96 Gangrene, not elsewhere classified (principal); I12.0 Hypertensive chronic kidney disease with stage 5 chronic kidney disease or end stage renal disease; E11.22 Type 2 diabetes mellitus with diabetic chronic kidney disease; N18.6 End stage renal disease; Z99.2 Dependence on renal dialysis
CPT/HCPCS: 99283

== ENCOUNTER 2019-01-20 16:05 | Inpatient (IN) | payer MEDICARE, OTHER ==
[~2019-01-20] VITALS: Ht 170.2 cm; Wt 59.0 kg
[2019-01-20] MEDS ORDERED: DIATRIZOATE MEGL/DIATRIZOA SOD 30 ML BTL PO ONE (16:59)
--- NOTE | 2019-01-20 17:08 | Diagnostic Imaging Report ---
EXAMINATION: CHEST SINGLE (PORTABLE) COMPARISON: Chest x-ray 12/12/2018 INDICATION: Diarrhea ^ERMD ORDER ^[id number] ^1650 ^Y DISCUSSION: Frontal view of the chest obtained at 1650 hours. HEART AND MEDIASTINUM: Stable cardiomegaly LINES: Dual lumen central venous catheter terminates in the cavoatrial junction and is stable in position. A central venous catheter in the proximal SVC of previous exam has been removed. LUNGS: New right basilar airspace opacity. Left lung is clear. Pulmonary veins are mild prominent but stable. PLEURA: No pleural effusion or pneumothorax. BONES AND SOFT TISSUES: No focal osseous lesion. The soft tissues are normal. IMPRESSION: New right basilar airspace opacity is suggestive of developing pneumonia in the appropriate clinical setting. Stable cardiomegaly. Signed by: Dr. Bev Mcfarlane MD on 01/20/2019 5:05 PM
[2019-01-20 17:38] LABS: BASOPHILS % 0.7 % (0.0-1.0); EOSINOPHILS # (AUTO) 0.1 (0.0-0.4); EOSINOPHILS % 1.7 % (0.0-6.0); HEMATOCRIT 38.1 % (34.2-44.1); HEMOGLOBIN 12.6 g/dL (12.0-16.0); LYMPHOCYTES # (AUTO) 0.6 (1.0-3.2); LYMPHOCYTES % 9.8 % (18.0-39.1); MEAN CORPUSCULAR HEMOGLOBIN 30.6 pg (28-32); MEAN CORPUSCULAR HGB CONC 33.1 g/dL (31-35); MEAN CORPUSCULAR VOLUME 92.5 fL (81-99); MONOCYTES # (AUTO) 0.8 (0.2-0.8); MONOCYTES % 12.9 % (4.4-11.3); NEUTROPHILS # (AUTO) 4.5 (2.1-6.9); NEUTROPHILS % 74.6 % (38.7-80.0); PLATELET COUNT 212 x10e3/uL (140-360); RED BLOOD COUNT 4.12 x10e6/uL (3.6-5.1); RED CELL DISTRIBUTION WIDTH 15.5 % (11.7-14.4)
[2019-01-20 17:56] LABS: INR 1.08; PROTHROMBIN TIME 14.5 seconds (11.9-14.5)
[2019-01-20 17:57] LABS: PARTIAL THROMBOPLASTIN TIME 29.2 seconds (23.8-35.5)
[2019-01-20 18:04] LABS: ALBUMIN/GLOBULIN RATIO 0.7 (0.8-2.0); ANION GAP 25.6 mmol/L (8-16); CALCIUM 7.5 mg/dL (8.4-10.2); CREATININE, SERUM 9.7 mg/dL (0.57-1.11); POTASSIUM 4.6 mmol/L (3.5-5.1)
[2019-01-20 18:10] LABS: CREATINE KINASE MB 2.8 ng/mL (0-5.0)
[2019-01-20 18:44] LABS: BAND NEUTROPHILS % (MANUAL) 3 %; LYMPHOCYTES % (MANUAL) 17 % (19-48); METAMYELOCYTES % (MANUAL) 1 % (0-0); MONOCYTES % (MANUAL) 14 % (3.4-9.0); NEUTROPHILS % (MANUAL) 65 % (40-74)
[2019-01-20 18:45] LABS: PLATELET ESTIMATE ADEQUATE; PLATELET MORPHOLOGY COMMENT NORMAL; RBC MORPHOLOGY COMMENT NORMAL
[2019-01-20 20:09] LABS: CREATINE KINASE MB 2.4 ng/mL (0-5.0)
[2019-01-20] MEDS ORDERED: METOPROLOL TARTRATE 25 MG TAB PO ONE (20:15)
[2019-01-20] MEDS ORDERED: SODIUM CHLORIDE FLUSH 10 ML SYR INJ PRN (20:15)
[2019-01-20] MEDS ORDERED: ASPIRIN 81 MG CHEW TAB PO ONE (20:15)
--- NOTE | 2019-01-20 20:25 | Diagnostic Imaging Report ---
EXAMINATION: CT of the abdomen and pelvis with contrast. TECHNIQUE: Spiral CT images of the abdomen and pelvis were performed from the lung bases to the lesser trochanters after the intravenous administration of 100 cc Isovue-370. Coronal and sagittal reformatted images were obtained. Routine protocol was performed. Gastrografin oral contrast was administered. COMPARISON: CT abdomen/pelvis 11/10/2018. CLINICAL HISTORY:Abdominal pain, query small bowel obstruction. DISCUSSION: LOWER THORAX: Linear subsegmental atelectasis at the lung bases. Resolution of trace right pleural effusion. Cardiomegaly with extensive coronary atherosclerosis. Interval increase in size of a hypodense structure measuring 2.0 cm and the left ventricular apex, previously 1.5 cm. HEPATOBILIARY: There is an ill-defined hypodense lesion at the right hepatic dome with peripheral nodular enhancement and faint internal calcifications, measuring up to 6.5 cm, similar to the prior CT. No evidence of biliary dilatation. Mildly distended gallbladder is unchanged. SPLEEN: No splenomegaly. PANCREAS: Coarse pancreatic calcifications likely related to prior pancreatitis. ADRENALS: No adrenal nodules. KIDNEYS/URETERS: Bilateral renal atrophy. A 2.4 cm cyst in the right lower pole kidney appears unchanged, and was better characterized on prior renal protocol CT. No evidence of hydronephrosis or stone. PELVIC ORGANS/BLADDER: Urinary bladder is unremarkable. Arcuate artery calcifications of the uterus. Mildly enlarged appearance of the uterus, likely reflecting fibroid, better characterized on prior CT. PERITONEUM/RETROPERITONEUM: Trace ascites. Anasarca. No evidence of free air. LYMPH NODES: No evidence of lymphadenopathy. VESSELS: Extensive atherosclerotic calcification of the abdominal aorta and branch vessels. The infrarenal abdominal aorta is borderline aneurysmal size, measuring up to 3 cm. There is a partially visualized left femoral distal arterial bypass graft, which appears to be occluded along with the proximal [place] superficial femoral artery. The proximal profunda femoral artery appears patent with severe atherosclerotic stenoses. GI TRACT: Interval development of diffuse wall thickening with surrounding inflammatory changes within the colon and rectum. The appendix is not definitively identified. No right lower quadrant inflammation. No evidence of bowel obstruction. BONES AND SOFT TISSUE: Postsurgical/post traumatic changes of the proximal left femur. The bones are diffusely osteopenic. Multilevel degenerative disc changes of the thoracolumbar spine. Right paraspinal intramuscular lipoma. Anasarca. IMPRESSION: Diffuse wall thickening and inflammatory changes of the colon and rectum, consistent with proctocolitis, which may be infectious or inflammatory. Right hepatic dome mass with peripheral nodular enhancement may represent hemangioma, but is incompletely characterized on this study. Suggest follow-up outpatient CT of the abdomen with and without contrast (liver mass protocol). Increasing size of a 2.0 cm hypoattenuating structure in the left ventricular apex, suspicious for thrombus. Suggest correlation with echocardiography. Severe atherosclerotic vascular disease with borderline aneurysmal dilatation (3 cm) of the infrarenal abdominal aorta. Signed by: Dr. Melinda Henson MD on 01/20/2019 8:21 PM
[2019-01-20] MEDS ORDERED: IOPAMIDOL 370 MG/ML 200 ML INFUS..BTL INJ ONE (20:30)
[2019-01-20] MEDS: PIPER-TAZ 3.375 GM 50 ML IV SCH (21:00)
[2019-01-20] MEDS ORDERED: DICYCLOMINE HCL 20 MG/2 ML VIAL IM ONE (21:30)
[2019-01-20 21:50] VITALS: BP 131/67
[2019-01-20 22:00] VITALS: BP 131/67
[2019-01-20] MEDS: ONDANSETRON HCL INJ 2MG/ML 2ML 2 MG/ML VIAL IV PRN (22:35)
[2019-01-20] MEDS: MORPHINE SULFATE 2 MG/ML SYR 1ML IV PRN (22:50)
[2019-01-21] MEDS: PIPER-TAZ 3.375 GM 50 ML IV SCH ×2 (03:26→08:50)
[2019-01-21 06:36] LABS: CREATINE KINASE MB 2.1 ng/mL (0-5.0)
[2019-01-21 08:00] VITALS: BP 117/56
[2019-01-21] MEDS: ASPIRIN 81 MG ENTERIC COATED PO SCH (08:50)
[2019-01-21] MEDS ORDERED: HYDRALAZINE HCL 20 MG/ML VIAL IV PRN (09:15)
[2019-01-21] MEDS ORDERED: ACETAMINOPHEN/CODEINE 300MG - 30MG TAB PO PRN (09:15)
[2019-01-21] MEDS ORDERED: CHOLESTYRAMINE 4 GM PACKET PO PRN (09:15)
[2019-01-21] MEDS ORDERED: ACETAMINOPHEN 325 MG TAB PO PRN (09:15)
[2019-01-21] MEDS ORDERED: IBUPROFEN 400 MG TAB PO PRN (09:30)
[2019-01-21] MEDS ORDERED: TRAMADOL HCL 50 MG TAB PO PRN (09:30)
[2019-01-21] MEDS ORDERED: SODIUM CHLORIDE 0.9% 1000ML 2,000 ML IV PRN (11:30)
[2019-01-21] MEDS ORDERED: ALBUMIN 25% 12.5GM 0.25 GM/ML BTL IV PRN (11:30)
[2019-01-21] MEDS ORDERED: SODIUM CHLORIDE 0.9% 250ML 500 ML IV PRN (11:30)
[2019-01-21] MEDS ORDERED: HEPARIN SOD (PORCINE) 1000 UNIT/ML SDV IV PRN (11:30)
[2019-01-21] MEDS ORDERED: MANNITOL 25% 12.5GM/50 ML VIAL IV PRN (11:30)
[2019-01-21 11:45] VITALS: BP 117/56
[2019-01-21 12:00] VITALS: BP 130/62
[2019-01-21] MEDS: VANCOMYCIN 250MG/5ML ORAL SOLN PO SCH ×2 (12:02→17:00)
[2019-01-21] MEDS ORDERED: SODIUM CHLORIDE 0.9% 250ML 250 ML ONE (14:29)
[2019-01-21] MEDS: METRONIDAZOLE 500MG/NS 100ML 100 ML IV SCH ×2 (14:44→22:26)
[2019-01-21] MEDS: MORPHINE SULFATE 2 MG/ML SYR 1ML IV PRN (14:45)
[2019-01-21] MEDS: ONDANSETRON HCL INJ 2MG/ML 2ML 2 MG/ML VIAL IV PRN (14:45)
[2019-01-21 16:00] VITALS: BP 159/73
[2019-01-21 20:00] VITALS: BP 139/63
--- NOTE | 2019-01-21 20:00 | Consultation ---
DATE OF CONSULTATION: Cardiology Consultation REASON FOR CONSULTATION: Elevated troponin. HISTORY OF PRESENT ILLNESS: This is a 68-year-old woman with history of hypertension, hyperlipidemia, diabetes mellitus, end-stage renal disease, on hemodialysis; chronic systolic congestive heart failure, multivessel coronary artery disease, not revascularized; and severe peripheral arterial disease with prior diabetic foot wound and osteomyelitis, status post intervention of the peroneal artery. Presented to the emergency department with abdominal pain. She has had multiple episodes of diarrhea and the pain in her abdomen is moderate to severe. No exacerbating or relieving factors. She denies any chest pain or shortness of breath, or palpitations currently. We were consulted due to elevated troponins, which have peaked at 7 and are currently down trending now at 6.3. REVIEW OF SYSTEMS: A 12-point review of system was conducted, is negative except as stated above in the HPI. PAST MEDICAL HISTORY: As stated above in the HPI. PAST SURGICAL HISTORY: Left qchyd-cpy-crci amputation, cardiac catheterization. PAST FAMILY HISTORY: No premature coronary artery disease or sudden cardiac . SOCIAL HISTORY: No illicit drug, alcohol, or tobacco use. ALLERGIES: PENICILLIN AND ACETAMINOPHEN. MEDICATIONS: See medications reconciliation form. PHYSICAL EXAMINATION: VITAL SIGNS: Temperature is 96.2, heart rate is 62, respirations are 18, blood pressure is 130/62, and ox saturation is 94% on room air. GENERAL: Well appearing, well built, in no apparent distress. Alert and orient x3. HEAD: Normocephalic, atraumatic. EYES: Extraocular muscles are intact. Conjunctivae clear. NECK: No JVD. No bruits. CARDIOVASCULAR: Regular rate and rhythm. Soft murmur at the left sternal border. LUNGS: Clear to auscultation. ABDOMEN: Soft, nontender, nondistended. EXTREMITIES: No clubbing, cyanosis, or edema. VASCULAR: 2+ pulses. SKIN: Warm, dry, and intact. NEUROLOGIC: No focal deficits noted. LABORATORY DATA: A 12-lead electrocardiogram showed normal sinus rhythm with inferolateral T-wave abnormalities. IMPRESSION: 1. Elevated troponins, likely type 2 myocardial infarction from acute colitis. 2. Diarrhea. 3. Sepsis. 4. End-stage renal disease. 5. Peripheral artery disease. 6. Coronary artery disease. 7. Chronic systolic congestive heart failure. RECOMMENDATIONS: Continue to monitor closely on Telemetry. The patient has known multivessel coronary artery disease, which has not been revascularized. She denies any chest pain or shortness of breath. Elevated troponins likely related to her acute illness and lack of clearance, given end-stage renal disease. Once she is over her acute illness, she will likely need bypass surgery for her multivessel CAD. DO JANIA Penaloza/MODJason /[id number]
[2019-01-21 21:04] LABS: CREATINE KINASE MB 1.9 ng/mL (0-5.0)
[2019-01-21] MEDS: ATORVASTATIN 40 MG TAB PO SCH (22:26)
[2019-01-21 22:49] VITALS: BP 139/63
[2019-01-22] VITALS (8 sets, daily range): BP systolic 114–155; BP diastolic 57–90
--- NOTE | 2019-01-22 00:15 | Consultation ---
DATE OF CONSULTATION: REASON FOR CONSULTATION: ESRD, need for hemodialysis. HISTORY OF PRESENT ILLNESS: The patient is a 68-year-old female with past medical history of ESRD on hemodialysis Monday, , and Monday; hypertension; diabetes type 2; and coronary artery disease, who was admitted with abdominal pain and diarrhea. The patient was found to be positive for C diff. The patient missed dialysis last two times, as well as having this diarrhea and crampy abdominal pain. The patient is currently on p.o. vancomycin. Had hemodialysis this morning. PAST MEDICAL HISTORY: As above. PAST SURGICAL HISTORY: Left below-knee amputation, thyroid surgery, tubal ligation, and angiogram of the legs with the stents. SOCIAL HISTORY: The patient lives at home by herself. No history of smoking, alcohol, or intravenous drug abuse. FAMILY HISTORY: Mother had diabetes type 2 and hypertension. REVIEW OF SYSTEMS: Pertinent positive and as per HPI. PHYSICAL EXAMINATION: VITAL SIGNS: Blood pressure 130/62, pulse of 63, respirations 18, temperature 96.0, and 93% on room air. GENERAL: Awake, alert, and oriented x3. Sitting up in the wheelchair and eating dinner. HEART: S1 and S2. Regular rate and rhythm. LUNGS: Clear to auscultate bilaterally. HEENT: PERRLA. Extraocular muscles intact. NECK: No elevated JVD. No mass. ABDOMEN: Soft. Bowel sounds positive. EXTREMITIES: No edema. NEUROLOGICAL: No focal deficit. LABORATORY DATA: White count 5.9, hemoglobin 12.6, and platelet count is 212. Sodium 137, potassium 4.6, chloride 100, CO2 of 16, BUN 81, creatinine 9.7, glucose is 94, calcium 7.4, AST 14, ALT 14, and albumin 3.0. Clostridium difficile is positive. Chest x-ray done on admission, new right basilar opacity, questionable pneumonia. CT abdomen and pelvis, diffuse wall thickening and inflammatory changes of the colon and rectum consistent with proctocolitis. Right hepatic dome mass may represent hemangioma. Severe atherosclerotic vascular disease. ASSESSMENT AND PLAN: 1. End-stage renal disease. Continue with Monday, , and Monday dialysis. The patient had one session of dialysis today as missed and Monday. 2. Clostridium difficile colitis, on p.o. vancomycin. 3. Diabetes type 2, per primary team. 4. Hypertension, controlled. 5. Anemia of chronic kidney disease. Currently, hemoglobin is 12.6. Restart Epogen if hemoglobin less than 10. 6. Coronary artery disease in no acute issues. 7. Peripheral vascular disease, status post left AKA. No acute issues. Thank you Dr. Mary for the consult, we will follow the patient with you. MD DC Vargas/MODJason /[id number]
[2019-01-22] MEDS: VANCOMYCIN 250MG/5ML ORAL SOLN PO SCH ×4 (00:29→20:30)
[2019-01-22] MEDS: LEVOTHYROXINE SODIUM 100 MCG TAB PO SCH (05:42)
[2019-01-22] MEDS: METRONIDAZOLE 500MG/NS 100ML 100 ML IV SCH ×3 (05:42→21:18)
[2019-01-22 06:03] LABS: BASOPHILS % 0.5 % (0.0-1.0); EOSINOPHILS # (AUTO) 0.2 (0.0-0.4); EOSINOPHILS % 3.3 % (0.0-6.0); HEMATOCRIT 35.7 % (34.2-44.1); HEMOGLOBIN 11.3 g/dL (12.0-16.0); LYMPHOCYTES # (AUTO) 0.7 (1.0-3.2); LYMPHOCYTES % 9.4 % (18.0-39.1); MEAN CORPUSCULAR HEMOGLOBIN 29.9 pg (28-32); MEAN CORPUSCULAR HGB CONC 31.7 g/dL (31-35); MEAN CORPUSCULAR VOLUME 94.4 fL (81-99); MONOCYTES % 14.1 % (4.4-11.3); NEUTROPHILS # (AUTO) 5.3 (2.1-6.9); PLATELET COUNT 192 x10e3/uL (140-360); RED BLOOD COUNT 3.78 x10e6/uL (3.6-5.1); RED CELL DISTRIBUTION WIDTH 15.6 % (11.7-14.4)
[2019-01-22] MEDS: ONDANSETRON HCL INJ 2MG/ML 2ML 2 MG/ML VIAL IV PRN ×2 (06:05→19:59)
[2019-01-22 06:23] LABS: ANION GAP 16.8 mmol/L (8-16); CALCIUM 7.2 mg/dL (8.4-10.2); CREATININE, SERUM 6.59 mg/dL (0.57-1.11); POTASSIUM 3.8 mmol/L (3.5-5.1)
[2019-01-22] MEDS: PANTOPRAZOLE SOD 40 MG TABEC PO SCH (08:42)
[2019-01-22] MEDS: CLOPIDOGREL BISULFATE 75 MG TAB PO SCH (08:42)
[2019-01-22] MEDS: ASPIRIN 81 MG ENTERIC COATED PO SCH (08:42)
[2019-01-22] MEDS ORDERED: ATROPINE SULFATE 0.1 MG/ML 10ML SYR ONE (14:38)
--- NOTE | 2019-01-22 18:06 | Progress Note ---
DATE: Cardiology Progress Note SUBJECTIVE: The patient is sleeping comfortably. Reports mild shortness of breath. OBJECTIVE: VITAL SIGNS: Temperature is 96.2, heart rate is 61, respirations are 18, blood pressure is 130/63, oxygen saturation 99% on room air. GENERAL: She is a chronically ill-appearing woman, sleeping comfortably. CARDIOVASCULAR: She has regular rate and rhythm. Systolic murmur at the left sternal border. LUNGS: Diminished breath sounds at bases. ABDOMEN: Soft, nontender, nondistended. EXTREMITIES: Left AKA foot wound dressed and wrapped. MEDICATIONS: Cardiovascular medications reviewed and include Plavix, aspirin, atorvastatin. LABORATORY DATA: Creatinine is 6.5, troponin is 6.4, LDL is 58. IMPRESSION: 1. Diarrhea with colitis. 2. Sepsis. 3. End-stage renal disease. 4. Peripheral arterial disease. 5. Coronary artery disease. 6. Chronic systolic congestive heart failure. RECOMMENDATIONS: Echocardiogram was reviewed. This once again showed severely depressed left ventricular systolic function with an estimated ejection fraction of approximately 20%. She has multivessel coronary artery disease with elevated troponins currently. She has no active chest pain. She is hemodynamically stable. We will try to restart low-dose heart failure medications. She will need revascularization in the form of bypass surgery when she is recovered from her acute sepsis and colitis. DO JANIA Penaloza/MODL /[id number]
[2019-01-22] MEDS: MORPHINE SULFATE 2 MG/ML SYR 1ML IV PRN (19:59)
[2019-01-22] MEDS: ATORVASTATIN 40 MG TAB PO SCH (21:18)
[2019-01-23] VITALS: BP 107/54
[2019-01-23] MEDS: VANCOMYCIN 250MG/5ML ORAL SOLN PO SCH ×2 (00:24→06:32)
[2019-01-23 03:49] LABS: BASOPHILS # (AUTO) 0.1 (0.0-0.1); BASOPHILS % 0.8 % (0.0-1.0); EOSINOPHILS # (AUTO) 0.2 (0.0-0.4); HEMATOCRIT 35.7 % (34.2-44.1); HEMOGLOBIN 11.4 g/dL (12.0-16.0); LYMPHOCYTES # (AUTO) 1.1 (1.0-3.2); LYMPHOCYTES % 18.6 % (18.0-39.1); MEAN CORPUSCULAR HEMOGLOBIN 30.5 pg (28-32); MEAN CORPUSCULAR HGB CONC 31.9 g/dL (31-35); MEAN CORPUSCULAR VOLUME 95.5 fL (81-99); MONOCYTES % 17.3 % (4.4-11.3); NEUTROPHILS # (AUTO) 3.5 (2.1-6.9); NEUTROPHILS % 58.1 % (38.7-80.0); PLATELET COUNT 192 x10e3/uL (140-360); RED BLOOD COUNT 3.74 x10e6/uL (3.6-5.1); RED CELL DISTRIBUTION WIDTH 15.8 % (11.7-14.4)
[2019-01-23 04:00] VITALS: BP 130/60
[2019-01-23 06:10] LABS: ANION GAP 14.4 mmol/L (8-16); CALCIUM 7.3 mg/dL (8.4-10.2); CREATININE, SERUM 4.61 mg/dL (0.57-1.11); POTASSIUM 3.4 mmol/L (3.5-5.1)
[2019-01-23] MEDS: METRONIDAZOLE 500MG/NS 100ML 100 ML IV SCH (06:32)
[2019-01-23] MEDS: LEVOTHYROXINE SODIUM 100 MCG TAB PO SCH (06:32)
[2019-01-23 07:44] VITALS: BP 127/66
[2019-01-23] MEDS: CLOPIDOGREL BISULFATE 75 MG TAB PO SCH (07:46)
[2019-01-23] MEDS: ASPIRIN 81 MG ENTERIC COATED PO SCH (07:46)
[2019-01-23] MEDS: PANTOPRAZOLE SOD 40 MG TABEC PO SCH (07:46)
[2019-01-23 08:40] VITALS: BP 127/66
--- NOTE | 2019-01-23 17:26 | Discharge Summary ---
ADMISSION DIAGNOSES: Clostridium difficile colitis, end-stage renal disease, hypertension with end-stage renal disease/coronary artery disease, non-STEMI, hyperlipidemia, history of peripheral arterial disease, hypothyroidism, and chronic right foot wound, present on admission. DISCHARGE DIAGNOSES: Clostridium difficile colitis, end-stage renal disease, hypertension with end-stage renal disease/coronary artery disease, non-STEMI, hyperlipidemia, history of peripheral arterial disease, hypothyroidism, and chronic right foot wound, present on admission. HISTORY: End-stage renal disease with dialysis Monday, , and Monday; hypertension, hyperlipidemia, type 2 diabetes, hypothyroidism, severe CAD, and severe PAD. SURGICAL HISTORY: Left AKA. FAMILY HISTORY: The patient's mom, dad, brothers, and sisters have diabetes. SOCIAL HISTORY: Tobacco use. HOSPITAL COURSE: A 68-year-old female admitted with complaints of constant sharp abdominal pain with associated watery diarrhea that began on . Symptoms worsened with eating. On admission, chest x-ray showed new right basilar opacity suggestive of developing pneumonia in the appropriate clinical setting. CT of the abdomen and pelvis showed diffuse wall thickening and inflammatory changes of the colon and rectum consistent with proctocolitis, right hepatic dome mass with peripheral nodule enhancement may represent hemangioma, but is incompletely characterized on the study. Increasing size of 2.0 cm hypoattenuating structure in the left ventricular apex suspicious for thrombus. The patient's Clostridium difficile stool came back positive. She was started on vancomycin p.o. and Flagyl. Troponins were elevated at 7.078, 6.583, and 6.387. Echo showed an EF of 25%. EKG showed normal sinus rhythm. After couple days of vancomycin and Flagyl, the patient is feeling much better and ready to discharge back to the snf. She will discharge to [facility]. Vital signs are stable. The patient is afebrile. Dictated by Cyndee Abbott NP Bhanu Mary MD [facility]/MODL /[id number]
== END 2019-01-23 11:37 | DRG 871 ==
LOC: ER 16:05 → ERHOLD 20:26 → MED/SURG3 21:54 → OBSVTOIN 01-21 14:33
PROVIDERS: ADMIT Internal Medicine; ATTEND Internal Medicine
PROC: 5A1D70Z Performance of Urinary Filtration, Intermittent, Less than 6 Hours Per Day (ICD-10-PCS; principal; 2019-01-21)
PROC: 5A1D70Z Performance of Urinary Filtration, Intermittent, Less than 6 Hours Per Day (ICD-10-PCS; 2019-01-22)
DX: A41.9 Sepsis, unspecified organism (principal); N18.6 End stage renal disease; I21.A1 Myocardial infarction type 2; A04.72 Enterocolitis due to Clostridium difficile, not specified as recurrent; I13.2 Hypertensive heart and chronic kidney disease with heart failure and with stage 5 chronic kidney disease, or end stage renal disease; I50.22 Chronic systolic (congestive) heart failure; E11.22 Type 2 diabetes mellitus with diabetic chronic kidney disease; Z99.2 Dependence on renal dialysis; I25.10 Atherosclerotic heart disease of native coronary artery without angina pectoris; E03.9 Hypothyroidism, unspecified; E78.5 Hyperlipidemia, unspecified; D63.1 Anemia in chronic kidney disease; E11.51 Type 2 diabetes mellitus with diabetic peripheral angiopathy without gangrene; Z79.4 Long term (current) use of insulin; Z89.512 Acquired absence of left leg below knee; R16.0 Hepatomegaly, not elsewhere classified; L97.509 Non-pressure chronic ulcer of other part of unspecified foot with unspecified severity; E11.621 Type 2 diabetes mellitus with foot ulcer; L97.519 Non-pressure chronic ulcer of other part of right foot with unspecified severity
CPT/HCPCS: 36415; 71045; 74177; 80048; 80053; 80061; 82550; 82553; 82948; 83605; 84484; 85025; 85610; 85730; 86705; 86706; 87045; 87340; 87493; 90962; 93005; 93306; 99284; G0378; J1644; J2270; J2405; J2543; J7030; J7050; Q9967

== ENCOUNTER 2019-02-14 15:10 | Emergency (ER) | payer MEDICARE ==
[~2019-02-14] VITALS: Ht 170.2 cm; Wt 59.0 kg
== END 2019-02-14 15:30 | disposition home or self-care (01) ==
LOC: ER 15:12
DX: Z49.01 Encounter for fitting and adjustment of extracorporeal dialysis catheter (principal); I12.0 Hypertensive chronic kidney disease with stage 5 chronic kidney disease or end stage renal disease; N18.6 End stage renal disease; E78.5 Hyperlipidemia, unspecified; K21.9 Gastro-esophageal reflux disease without esophagitis
CPT/HCPCS: 99283

== ENCOUNTER 2019-02-25 18:46 | Inpatient (IN) | payer MEDICARE, OTHER ==
[~2019-02-25] VITALS: Ht 170.2 cm; Wt 63.2 kg
[2019-02-25] MEDS ORDERED: DIATRIZOATE MEGL/DIATRIZOA SOD 30 ML BTL PO ONE (21:08)
[2019-02-25 23:56] LABS: BASOPHILS # (AUTO) 0.1 (0.0-0.1); BASOPHILS % 0.2 % (0.0-1.0); HEMATOCRIT 43.7 % (34.2-44.1); HEMOGLOBIN 14.2 g/dL (12.0-16.0); LYMPHOCYTES % 3.3 % (18.0-39.1); MEAN CORPUSCULAR HEMOGLOBIN 29.8 pg (28-32); MEAN CORPUSCULAR HGB CONC 32.5 g/dL (31-35); MEAN CORPUSCULAR VOLUME 91.6 fL (81-99); MONOCYTES % 3.3 % (4.4-11.3); NEUTROPHILS # (AUTO) 27.1 (2.1-6.9); NEUTROPHILS % 92.7 % (38.7-80.0); PLATELET COUNT 159 x10e3/uL (140-360); RED BLOOD COUNT 4.77 x10e6/uL (3.6-5.1); RED CELL DISTRIBUTION WIDTH 17.1 % (11.7-14.4)
[2019-02-26 00:12] LABS: ALBUMIN 3.1 g/dL (3.5-5.0); ALBUMIN/GLOBULIN RATIO 0.8 (0.8-2.0); ALKALINE PHOSPHATASE 165 IU/L (40-150); ANION GAP 25.8 mmol/L (8-16); BLOOD UREA NITROGEN 48 mg/dL (7-26); BUN/CREATININE RATIO 6 (6-25); CARBON DIOXIDE 17 mmol/L (22-29); CHLORIDE 99 mmol/L (98-107); EST GLOMERULAR FILTRATION RATE 6 ML/MIN (60-); GLUCOSE 134 mg/dL (74-118); POTASSIUM 3.8 mmol/L (3.5-5.1); SODIUM 138 mmol/L (136-145)
--- NOTE | 2019-02-26 00:24 | Diagnostic Imaging Report ---
EXAM: CT Abdomen and Pelvis WITHOUT contrast INDICATION: ^abd pain, diarrhea ^[id number] ^2319 ^Y COMPARISON: CT dated 01/20/2019 TECHNIQUE: Abdomen and pelvis were scanned utilizing a multidetector helical scanner from the lung base to the pubic symphysis without administration of IV contrast. Absence of intravenous contrast decreases sensitivity for detection of focal lesions and vascular pathology. Coronal and sagittal reformations were obtained. Routine protocol was performed. IV CONTRAST: None ORAL CONTRAST: Gastrografin COMPLICATIONS: None RADIATION DOSE: Total DLP: 266.44 mGy*cm Estimated effective dose: (DLP x 0.015 x size factor) mSv CTDIvol has been reviewed. It is below the limits set by the Radiation Protocol Committee (RPC). FINDINGS: LINES and TUBES: None. LOWER THORAX: Cardiomegaly. Partially seen atherosclerotic calcification of coronary arteries. New small left pleural effusion. Posterior right base hazy opacification. Unchanged left lower lobe linear scarring. HEPATOBILIARY: Unenhanced liver is unremarkable. Previously noted hepatic dome mass is less conspicuous on current unenhanced exam. Right hepatic lobe calcified granuloma. No biliary ductal dilation. GALLBLADDER: No radio-opaque stones or sludge. No wall thickening. SPLEEN: No splenomegaly. PANCREAS: Atrophic. No focal masses or ductal dilatation. ADRENALS: No adrenal nodules KIDNEYS/URETERS: Mildly atrophic. No hydronephrosis. Limited for evaluation of renal parenchyma without intravenous contrast. 2.3 cm right inferior pole hypodensity, likely a cyst. No stones. GI TRACT: No abnormal distention or evidence of bowel obstruction. Mild wall thickening of the featureless colon. Appendix is normal. PELVIC ORGANS/BLADDER: Large right posterior uterine body fibroid. Bladder is unremarkable. LYMPH NODES: No lymphadenopathy. VESSELS: There is severe atherosclerotic disease in the aorta and major arterial branches. Borderline aneurysmal dilatation of infrarenal abdominal aorta measuring 2.9 x 2.7 cm. PERITONEUM / RETROPERITONEUM: No free air. Trace pelvic free fluid. BONES: Generalized demineralization. Partially seen left femoral intramedullary michaelle and screw. SOFT TISSUES: Elevated right hemidiaphragm. Mild anasarca. IMPRESSION: 1. Limited study without intravenous contrast. 2. Mild wall thickening of the featureless colon, concerning for subacute changes of inflammatory colitis. 3. New small left pleural effusion. 4. Posterior right lung base hazy opacification, concerning for pneumonia. 5. Myomatous uterus. 6. Again seen borderline aneurysmal dilatation of infrarenal abdominal aorta and severe arteriolosclerosis. Signed by: Dr. Alex Arellano MD on 02/26/2019 12:21 AM
[2019-02-26 00:27] LABS: ALANINE AMINOTRANSFERASE < 6 IU/L (0-55); CALCIUM 8.9 mg/dL (8.4-10.2)
[2019-02-26 00:28] LABS: AMYLASE 15 U/L (25-125); LIPASE 5 U/L (8-78)
[2019-02-26] MEDS ORDERED: SODIUM CHLORIDE FLUSH 10 ML SYR INJ PRN (01:00)
[2019-02-26] MEDS ORDERED: ONDANSETRON HCL INJ 2MG/ML 2ML 2 MG/ML VIAL IV PRN (01:00)
[2019-02-26] MEDS: VANCOMYCIN 250MG/5ML ORAL SOLN PO SCH ×3 (01:40→16:55)
[2019-02-26] MEDS: METRONIDAZOLE 500MG/NS 100ML 100 ML IV SCH ×4 (01:40→18:48)
--- NOTE | 2019-02-26 08:30 | NUR ---
pt had diarrhea. sample sent to lab. pt cleaned up and new pad/diaper given. warm blankets given.
--- NOTE | 2019-02-26 09:43 | NUR ---
report given to Jakob PINO.
--- NOTE | 2019-02-26 10:34 | NUR ---
[facility] NOTIFIED OF NEED FOR HD.
[2019-02-26] MEDS ORDERED: HEPARIN SOD (PORCINE) 1000 UNIT/ML SDV ONE (13:59)
[2019-02-26] MEDS ORDERED: SODIUM CHLORIDE 0.9% 1000ML 2,000 ML ONE (14:00)
[2019-02-26] MEDS ORDERED: HYDRALAZINE HCL 20 MG/ML VIAL IV PRN (14:30)
[2019-02-26] MEDS ORDERED: PANTOPRAZOLE SOD 40 MG TABEC PO SCH (14:30)
[2019-02-26] MEDS ORDERED: CLOPIDOGREL BISULFATE 75 MG TAB PO SCH (15:00)
[2019-02-26] MEDS ORDERED: DOCUSATE SODIUM 100 MG CAP PO SCH (17:00)
[2019-02-26 17:28] LABS: BASOPHILS % 0.1 % (0.0-1.0); EOSINOPHILS % 0.1 % (0.0-6.0); HEMATOCRIT 43.2 % (34.2-44.1); HEMOGLOBIN 14.1 g/dL (12.0-16.0); LYMPHOCYTES # (AUTO) 0.8 (1.0-3.2); LYMPHOCYTES % 2.9 % (18.0-39.1); MEAN CORPUSCULAR HEMOGLOBIN 30.2 pg (28-32); MEAN CORPUSCULAR HGB CONC 32.6 g/dL (31-35); MEAN CORPUSCULAR VOLUME 92.5 fL (81-99); MONOCYTES # (AUTO) 1.8 (0.2-0.8); MONOCYTES % 6.2 % (4.4-11.3); NEUTROPHILS # (AUTO) 25.4 (2.1-6.9); NEUTROPHILS % 90.2 % (38.7-80.0); PLATELET COUNT 115 x10e3/uL (140-360); RED BLOOD COUNT 4.67 x10e6/uL (3.6-5.1); RED CELL DISTRIBUTION WIDTH 17.2 % (11.7-14.4)
--- NOTE | 2019-02-26 17:34 | Consultation ---
DATE OF CONSULTATION: Pulmonary Critical Care Consultation CHIEF COMPLAINT: End-stage renal disease, colitis, and infiltrate on chest x-ray. HISTORY OF PRESENT ILLNESS: The patient is a 68-year-old woman with a history of end-stage renal disease. She was admitted to [facility] about a month ago with C. difficile colitis. She received oral vancomycin at that time and improved. She was sent to the nursing facility and now returns, complaining of diarrhea with abdominal cramping and abdominal discomfort. She does not complain of fevers. She is not having vomiting. PAST SURGICAL HISTORY: 1. Status post thyroidectomy. 2. Status post PTCA of the coronary artery. 3. Status post PTCA of peripheral arteries. PAST MEDICAL HISTORY: 1. Hypertension. 2. End-stage renal disease. 3. Hypothyroidism. 4. Coronary artery disease. SOCIAL HISTORY: The patient quit smoking many years ago. She is not an active drinker. ALLERGIES: SHE IS ALLERGIC TO PENICILLIN. FAMILY HISTORY: Family history is noncontributory. There is a history of diabetes. REVIEW OF SYSTEMS: There is no fever. She has no headache. She has no neck pain. She is not complaining of any difficulty breathing. She does have some cough. She has no chest pain. She has abdominal cramping and some diarrhea, but no nausea or vomiting. PHYSICAL EXAMINATION: VITAL SIGNS: The patient is afebrile. The blood pressure is 131/77 and saturation is 97%. HEENT: Shows no facial swelling or erythema. CARDIAC: Reveals regular rate and rhythm with normal S1 and S2. LUNGS: Auscultation of lungs reveals decreased breath sounds at the bases. There is no wheezing. ABDOMEN: Soft and nontender. There is no rebound or guarding. EXTREMITIES: Shows no leg edema or calf tenderness. There is no cyanosis or clubbing. SKIN: Shows no rashes. NEUROLOGICAL: Shows no focal abnormalities. RADIOGRAPHIC DATA: CT scan of the chest shows some changes consistent with resolving colitis. There is a small left pleural effusion and a small posterior hazy opacification in the right lung base. LABORATORY DATA: White blood cells count is 29.2 and hemoglobin is 14. The platelet count is 159. Other electrolytes within normal limits. The BUN to creatinine is 48 to 7.4. Total bilirubin is 1.1. Albumin is 3.1. IMPRESSION: 1. Recurrent Clostridium difficile colitis with sepsis, present on admission. 2. Right lower lobe opacity in the lung of unclear significance. 3. End-stage renal disease. 4. Hypertension. 5. Diabetes. PLAN: 1. Continue vancomycin p.o. and metronidazole IV. 2. PA and lateral chest x-ray. 3. Repeat CBC. 4. Continue dialysis as needed. 5. Increase intravascular volume to compensate for diarrhea and ongoing insensible losses. Michael Lane MD [facility]/MODL /[id number]
--- NOTE | 2019-02-26 18:30 | NUR ---
PT RECEIVED FROM ER. MARK3. EDUCATED PT ABOUT FALL PRECAUTIONS. CALL LIGHT WITH IN EASY REACH. INSTRUCTED PT TO USE CALL LIGHT FOR ANY NEEDS. PT VERBALIZED UNDERSTANDING. SIDE RAILS X2. BED IS LOW AND LOCKED. BED ALARM IS ON. PT DENIED FURTHER NEEDS.
--- NOTE | 2019-02-26 18:34 | Diagnostic Imaging Report ---
EXAMINATION: CHEST 2 VIEWS INDICATION: ^RLL Infiltrate ^[id number] ^1800 COMPARISON: CT abdomen dated 02/25/2019. Chest x-ray dated 01/20/2019. FINDINGS: TUBES and LINES: Dual-lumen tunneled dialysis catheter with distal tips projected on the right atrium. LUNGS: Patchy density in the right lower lobe. Mild left basilar subsegmental atelectasis. Mild pulmonary venous congestion and interstitial edema. PLEURA: No pneumothorax. Small bilateral pleural effusions left greater than right. HEART AND MEDIASTINUM: Cardiac size is mildly enlarged. BONES AND SOFT TISSUES: No acute osseous lesion. Soft tissues are unremarkable. UPPER ABDOMEN: No free air under the diaphragm. IMPRESSION: Pulmonary venous congestion and interstitial edema. Mild patchy density in the right lung base may represent atelectasis versus developing infection proper clinical setting. Signed by: Dr. Yomi Franklin M.D. on 02/26/2019 6:31 PM
[2019-02-26] MEDS ORDERED: SODIUM CHLORIDE 0.9% 250ML 250 ML ONE (18:53)
--- NOTE | 2019-02-26 19:00 | NUR ---
Report and walking rounds completed, Patient in bed. Call light within reach. No issues or concerns at this time. Will continue to monitor.
--- NOTE | 2019-02-26 19:00 | NUR ---
BEDSIDE SHIFT REPORT GIVEN TO THE PRACTICING MD ANESTHESIOLOGIST RN. PT DENIED FURTHER NEEDS.
[2019-02-26] MEDS ORDERED: VANCOMYCIN 250MG/5ML ORAL SOLN PO SCH (19:15)
[2019-02-26 20:00] VITALS: BP 127/77
[2019-02-26] MEDS: PANTOPRAZOLE SOD 40 MG TABEC PO SCH (20:48)
[2019-02-26] MEDS: ATORVASTATIN 40 MG TAB PO SCH (20:48)
[2019-02-26] MEDS: CLOPIDOGREL BISULFATE 75 MG TAB PO SCH (20:48)
[2019-02-26] MEDS: DOCUSATE SODIUM 100 MG CAP PO SCH (20:48)
--- NOTE | 2019-02-26 20:51 | Diagnostic Imaging Report ---
EXAM: CT Chest WITHOUT contrast 02/26/2019 5:38 PM INDICATION: . Pneumonia. COMPARISON: None TECHNIQUE: Chest was scanned utilizing a multidetector helical scanner from the lung apex through the level of the adrenal glands without administration of IV contrast. Absence of intravenous contrast decreases sensitivity for detection of lymphadenopathy and vascular pathology. Coronal and sagittal reformations were obtained. Routine protocol was performed. IV CONTRAST: None RADIATION DOSE: Total DLP: 513.59 mGy*cm Estimated effective dose: (DLP x 0.014 x size factor) mSv COMPLICATIONS: None FINDINGS: LINES/ TUBES: Dual-lumen right IJ dialysis catheter with distal tips within the right atrium. LUNGS AND AIRWAYS: Mild bilateral upper lobe emphysematous changes. Patchy density in the right lung base posteriorly on image 90 series 2 may represent atelectasis versus developing infection. Probable density in the left lung base posteriorly may represent rounded atelectasis versus pneumonia. Lingular platelike atelectasis. Mild reticular nodular densities in the inferior right upper lobe. Airways are normal. PLEURA: Small left pleural effusion. Trace right pleural effusion. HEART AND MEDIASTINUM: The thyroid gland is normal. No mediastinal, hilar or axillary lymphadenopathy. The heart is moderately enlarged. tThere is no pericardial effusion. There are significant atherosclerotic calcifications in the aorta and coronary arteries. UPPER ABDOMEN: Limited non-contrast views of the upper abdomen show no abnormality within the visualized liver, spleen, pancreas, or kidneys. The adrenal glands are normal. BONES: There are degenerative changes in the thoracic spine. SOFT TISSUES: Diffuse subcutaneous edema. IMPRESSION: Findings concerning for bilateral infection/pneumonia. Mild pulmonary emphysema. Small left and trace right pleural effusions, likely reactive. Signed by: Dr. Yomi Franklin M.D. on 02/27/2019 8:18 AM
[2019-02-26] MEDS ORDERED: ZOLPIDEM TARTRATE 5 MG TAB PO PRN (21:00)
[2019-02-26 21:01] VITALS: BP 127/77
[2019-02-27] VITALS (7 sets, daily range): BP systolic 106–135; BP diastolic 53–78
--- NOTE | 2019-02-27 00:12 | Consultation ---
DATE OF CONSULTATION: 02/26/2019 Renal Consultation REASON FOR CONSULTATION: End-stage renal disease. HISTORY OF PRESENT ILLNESS: 68-year-old female with end-stage renal disease, on hemodialysis Monday, , Monday, who was just recently admitted for C diff colitis, presented to [facility] with 2-day history of abdominal pain and diarrhea. The patient was found to have C diff colitis, was admitted, and Nephrology consultation was called. The patient underwent dialysis and is finishing now and tolerated 1 L ultrafiltration. The patient has no further complaints. REVIEW OF SYSTEMS: 12-point review of systems completed. All systems negative other than in the HPI. PAST MEDICAL HISTORY: 1. End-stage renal disease, on hemodialysis Monday, , and Monday. 2. Hypertension. 3. Diabetes type 2. 4. Coronary artery disease. 5. Recent C diff colitis. PAST SURGICAL HISTORY: 1. Left below-knee amputation. 2. Thyroid surgery. 3. Tubal ligation. 4. Tunnelled dialysis catheter. 5. History of angiogram of lower extremities. SOCIAL HISTORY: No tobacco. No alcohol. No IV drugs. FAMILY HISTORY: Positive for diabetes and hypertension. ALLERGIES: PENICILLIN AND TYLENOL. CURRENT MEDICATIONS: See list. PHYSICAL EXAMINATION: VITAL SIGNS: Blood pressure 127/56, pulse 98, respiratory rate 18, and pulse 60. GENERAL: No apparent distress. HEENT: Oropharynx clear. No scleral icterus. No peripheral edema. NECK: Supple. No elevation in jugular venous pressure. No lymphadenopathy. CHEST: Clear to auscultation anteriorly bilaterally. CARDIOVASCULAR: Regular rate and rhythm. No murmurs, rubs, or gallops. ABDOMEN: Soft. Positive bowel sounds. No tenderness. No rebound. EXTREMITIES: No edema, clubbing, or cyanosis. SKIN: Warm. LABORATORY DATA: White count 29,000, hemoglobin 14.2, hematocrit 43.7, and platelets 159. Sodium 138, potassium 3.8, chloride 99, CO2 of 17, BUN 48, creatinine 7.40, calcium 8.9. Alkaline phosphatase 165 and albumin 3.1. C diff positive. ASSESSMENT AND PLAN: 1. End-stage renal disease. Continue hemodialysis Monday, , and Monday. 2. Clostridium colitis. Continue antibiotics. 3. Anemia, secondary to chronic kidney disease. We will start Epogen if hemoglobin drops low to 11. 4. Hypertension, controlled. 5. Diabetes, per primary team. MD ALEJANDRO Ricks/MODL /[id number]
[2019-02-27] MEDS: METRONIDAZOLE 500MG/NS 100ML 100 ML IV SCH ×6 (00:26→21:05)
--- NOTE | 2019-02-27 00:48 | NUR ---
IV infiltrated to left forearm. Informed patient that need to start another IV for IV antibiotic. Patient refusing IV at this time, stating " I want to go to sleep." Informed patient that could start IV quickly then patient could go to sleep and so patient could get IV antibiotic. Pt refuses stating "I want to go to sleep and don't want to be stuck!" Education provided that patient needs new IV for IV antibiotics to help with colitis. Patient continues to refuse. Orientation assessed and patient A&O x3, patient agitated. Will reassess and monitor.
[2019-02-27] MEDS: VANCOMYCIN 250MG/5ML ORAL SOLN PO SCH ×4 (03:39→20:48)
[2019-02-27 05:32] LABS: BASOPHILS % 0.1 % (0.0-1.0); EOSINOPHILS % 0.1 % (0.0-6.0); HEMATOCRIT 39.2 % (34.2-44.1); HEMOGLOBIN 12.6 g/dL (12.0-16.0); LYMPHOCYTES # (AUTO) 0.9 (1.0-3.2); LYMPHOCYTES % 4.3 % (18.0-39.1); MEAN CORPUSCULAR HEMOGLOBIN 29.5 pg (28-32); MEAN CORPUSCULAR HGB CONC 32.1 g/dL (31-35); MEAN CORPUSCULAR VOLUME 91.8 fL (81-99); MONOCYTES % 5.1 % (4.4-11.3); NEUTROPHILS # (AUTO) 18.4 (2.1-6.9); NEUTROPHILS % 89.9 % (38.7-80.0); PLATELET COUNT 116 x10e3/uL (140-360); RED BLOOD COUNT 4.27 x10e6/uL (3.6-5.1); RED CELL DISTRIBUTION WIDTH 17.1 % (11.7-14.4)
[2019-02-27] MEDS: LEVOTHYROXINE SODIUM 100 MCG TAB PO SCH (05:36)
[2019-02-27 06:03] LABS: ALBUMIN 2.5 g/dL (3.5-5.0); ALBUMIN/GLOBULIN RATIO 0.8 (0.8-2.0); ALKALINE PHOSPHATASE 128 IU/L (40-150); ANION GAP 17.3 mmol/L (8-16); BLOOD UREA NITROGEN 27 mg/dL (7-26); BUN/CREATININE RATIO 6 (6-25); CALCIUM 8.2 mg/dL (8.4-10.2); CARBON DIOXIDE 21 mmol/L (22-29); CHLORIDE 102 mmol/L (98-107); CREATININE, SERUM 4.81 mg/dL (0.57-1.11); EST GLOMERULAR FILTRATION RATE 9 ML/MIN (60-); GLUCOSE 82 mg/dL (74-118); POTASSIUM 3.3 mmol/L (3.5-5.1); SODIUM 137 mmol/L (136-145)
[2019-02-27 06:09] LABS: ALANINE AMINOTRANSFERASE < 6 IU/L (0-55)
[2019-02-27 06:21] LABS: PHOSPHORUS 4.6 MG/DL (2.3-4.7)
[2019-02-27] MEDS: PANTOPRAZOLE SOD 40 MG TABEC PO SCH (07:30)
[2019-02-27] MEDS: DOCUSATE SODIUM 100 MG CAP PO SCH ×3 (09:00→20:48)
[2019-02-27] MEDS ORDERED: NON-FORMULARY MEDICATION (Atorvastatin Calcium 40 MG) PO SCH (09:00)
[2019-02-27] MEDS: CLOPIDOGREL BISULFATE 75 MG TAB PO SCH (09:00)
--- NOTE | 2019-02-27 09:29 | Diagnostic Imaging Report ---
Chest, 1 view, 02/27/2019. History: Pulmonary opacities. Comparison: 02/26/2019. Findings: The cardiomediastinal silhouette and pulmonary vasculature are mild prominent. Patchy bibasilar opacities are unchanged. Right IJ tunneled dialysis catheter is unchanged. There are no acute osseous or soft tissue abnormalities. Impression: No significant change in bibasilar opacities. Signed by: Artis Mayes on 02/27/2019 9:25 AM
--- NOTE | 2019-02-27 10:39 | Progress Note ---
DATE: SUBJECTIVE: The patient had dialysis yesterday. She is more comfortable today. She is resting. She still has some diarrhea. PHYSICAL EXAMINATION: VITAL SIGNS: The patient is afebrile. The vital signs are stable. HEENT: No facial swelling or erythema. CARDIAC: Regular rate and rhythm with a normal S1 and S2. There are no murmurs or rubs. LUNGS: Auscultation of lungs reveals clear breath sounds bilaterally. ABDOMEN: Mildly tender in the lower abdomen. EXTREMITIES: There is no leg edema. LABORATORY DATA: White blood cell count is 20.4 and hemoglobin is 12.6. The platelet count is 116. The BUN to creatinine ratio is 27-4.8 and the potassium is 3.3. The other electrolytes are within normal limits. IMPRESSION: 1. Recurrent Clostridium difficile colitis with sepsis, present on admission. 2. Lower lobe infiltrates in lung rush of unclear significance. 3. Thrombocytopenia. 4. End-stage renal disease. 5. Diabetes. 6. Hypertension. PLAN: 1. Continue oral vancomycin and IV metronidazole. 2. The patient does not have symptoms of pneumonia at this time. She has no productive cough, chest pain, or dyspnea. 3. Repeat chest x-ray. 4. Nasal swab for influenza. 5. Continue dialysis as needed. 6. Continue to monitor blood counts. Michael Lane MD [facility]/MODL /[id number]
--- NOTE | 2019-02-27 11:00 | NUR ---
WOUND CARE CONSULT FOR 68YO FEMALE HXABD , PAIN COLLITIS , SMALL VESSEL DISEASE , C DIFF,BKA LEFT EXTREMITY GARRISON 15 ON MODERATE PUP AND ALTERNATING PRESSURE MATTRESS LABS: WBC- 20.46 ,HGB- 12.6 , GLUCOSE -[address] ROYA VUONG CONSULTED FOR PODIATRY WOUND CARE TO FOLLOW UP IF NEEDED WITH FORMULATED TREATMENT PLAN SKIN ASSESSMENT COMPLETED PATIENT PRESENTS WITH #1 GENERALIZED REDNESS TO SACRO GLUTEAL REGION RELATED TO MOISTURE AND LOOSE STOOL RIGHT FOOT MOTTLED COLD TO TOUCH AND DARK BLUISH DP NOT PALPABLE #2 RIGHT FOOT 1ST MET HEAD UPGRADEABLE ULCERATION WITH NECROSIS DARK BLUISH JOSE AREA 5CM X4CM #3 RIGHT FOOT GRT TOE UPGRADEABLE ULCERATION WITH NECROSIS 100% ESCHAR 1.5 CM X 1.5CM #4 RIGHT FOOT 3RD TOE UPGRADEABLE ULCERATION WITH NECROSIS 100% ESCHAR 1 CM X 1CM #5 RIGHT FOOT 4TH TOE FULL THICKNESS ULCERATION WITH EXPOSED UNDERLYING STRUCTURE 1.5 CM X 1.5CM X 1CM #6 RIGHT FOOT 5TH TOE FULL THICKNESS ULCERATION WITH EXPOSED UNDERLYING STRUCTURE 2CM X 2CM X 1CM RECOMMENDATIONS: NURSING TO CONTINUE TO MAINTAIN MODERATE PUP INTERVENTIONS AND ALTERNATING PRESSURE SURFACE NURSING TO CONTINUE TO ASSIST PATIENT OUT OF BED FOR MEALS AND MUCH TOLERATED NURSING TO APPLY REMEDY ANTIFUNGAL CREAM DAILY TO JOSE AREA AND SACRO GLUTEAL AREA DENUDED SKIN NURSING TO CLEAN RIGHT FOOT AND RT GREAT TOE ,3RD TOE ,4TH TOE AND 5TH TOE ULCERATIONS DAILY WITH NS AND APPLY BETADINE DAMPENED 4X4 GAUZE COVER WITH DRY 4X4 EUGENE AND LIGHTLY WRAP WITH KERLIX AND SECURE WITH TAPE NURSING TO RECONSULT WOUND CARE POST DR ROYA VUONG CONSULTATION FOR PODIATRY AND TREATMENT PLAN IF NEEDED Addendum: 02/27/19 at 1123 by Yonathan Can RN Amended: Links added.
[2019-02-27] MEDS ORDERED: POTASSIUM CHLORIDE 20 MEQ TAB CR PO ONE (11:50)
--- NOTE | 2019-02-27 15:57 | NUR ---
Nutrition Intervention Note RD Recommendation(s) for Physician: -Continue current diet pet MD. -Recommend zinc sulfate 220 mg daily x 10 days, Vit C 500 mg once a day, M/ with minerals daily to help promote wound healing if medically feasible. -Consider Gurpreet supplement BID. Plan of Care: RD following, monitoring for tolerance and adequacy. Gurpreet BID. Nutrition reason for involvement: Nutrition Risk Trigger-MST 4 RD Assessment 02/27: 68 YOF admitted for ab pain with PMH listed below. The pt was seen resting in bed. She stated she has had a poor appetite for a couple of weeks but was unsure how much weight she lost. Pt was last seen by [facility] in January, the pt was 130 lbs at that time suggesting no weight loss. Pt denied ONS at this time. Per FS she has a unstageable on her foot. Wound care recommendations provided above. Pt is a dialysis pt. Per meal assessment the pt has been consuming 25-75% of her meals. Will continue to monitor. Principal Problems/Diagnoses: Ab Pain, Colitis, diarrhea PMH:HTN, ESRD, CAD GI: LBM: 02/27 Skin: unstageable on foot, wounds per wound care note Labs: 02/27: K 3.3, CO2 21, BUN 27, Creat 4.81, Ca 8.2 Meds: 02/27: abx, colace, plavix, protonix, zofran, synthroid Ht:67 in Wt:139 lbs BMI:21.8 kg/m^2 IBW:135 lbs Malnutrition Evaluation 02/27 The patient does not meet criteria for a specified degree of malnutrition at this time. Will re-evaluate at follow-up as appropriate. Energy intake: <50% of estimated energy requirements for >1 month Nutrition Prescription (Diet Order): Renal DM Diet Estimated Nutritional Needs: Calories: 1575-2205kcal/day (25-35 kcal/kg/day) Weight used : Protein : 76-94gram/protein/day (1.2-1.5 gram/kg/day ) Weight used: Diet Adequacy: Not meeting calorie needs, Not meeting protein needs Diet Education Needs Assessment: Diet education indicated, but patient not appropriate for education at this time. Nutrition Care Level: mod Nutrition Diagnosis: Inadequate protein intake related to medical condition as evidenced by pt having unstageable PU on foot per FS. Goal: Patient will meet 75-100% of estimated needs by follow up Progress: (N/A) Interventions: - mineral (sodium, phos, potassium), carb-modified diet, Commercial beverage, prescription medication, M/ mineral supplementation Monitoring/Evaluation: -Total energy intake, Total protein intake Modified diet, Liquid supplement, Weight change, prescription medication Signed: Kaylene Edwards RD, LD
--- NOTE | 2019-02-27 19:03 | NUR ---
PT RESTING ON BED BED SIDE REPORT GIVEN TO ONCOMING NURSE
[2019-02-27] MEDS: ATORVASTATIN 40 MG TAB PO SCH (20:48)
--- NOTE | 2019-02-28 00:40 | Consultation ---
DATE OF CONSULTATION: REASON FOR CONSULTATION: Recurrent C. difficile colitis, failure of treatment. HISTORY OF PRESENT ILLNESS: This patient who is a 68-year-old female, end-stage renal disease, C. diff colitis, status post thyroidectomy, status post coronary artery disease, status post PTCA, peripheral vascular disease with PTCA, hypertension, atherosclerotic disease. The patient was history of smoking, but quit several years ago. The patient has history of Clostridium difficile. She received three weeks of oral vancomycin. She was recently at the nursing facility. However, she is coming back here with worsening diarrhea few days after she started the vancomycin for abdominal pain. The patient is being admitted. The patient does have peripheral vascular disease, history of left [id number] amputation, thyroidectomy, tubal ligation, tunneled dialysis catheter placement, angiogram of the lower extremity. The patient was sent here, she was admitted. LABORATORY DATA: On admission, white count was 29.27, today 20.46, hemoglobin 14, hematocrit 43. Sodium 137, potassium 3.3, creatinine of 7.47. MEDICATION LIST: She is currently on: 1. Metronidazole. 2. P.o. Vanco. 3. Lipitor. PHYSICAL EXAMINATION: GENERAL: She is currently alert, oriented, does not seem to be in acute distress. VITAL SIGNS: Stable, currently afebrile. HEENT: She is not icteric. NECK: Supple. CHEST: Clear bilateral. COR: S1, S2. No S3, S4 or murmur. ABDOMEN: Soft. REVIEW OF SYSTEMS: HEENT: Negative. PULMONARY: Negative. CARDIAC: Negative. : Negative. At time, she is just not feeling well, complaining of pain in the abdominal area as well as diarrhea, but she think it is getting better. IMPRESSION: Sepsis secondary to Clostridium difficile colitis, present on admission, failed three weeks of oral vancomycin, currently responding. We will keep her on vancomycin 250 mg p.o. q.6 hours. Recheck CBC. Recheck Chem panel. After normalize, the patient can discharge home. Questran 1 p.o. b.i.d. p.r.n. diarrhea to be given at least 1 hour away from oral vancomycin. IV Flagyl, continue with the same. CAT scan showed subacute colitis. Could be discharge when she is stable. Keep on vancomycin till I see her. End-stage renal disease, on hemodialysis, coronary artery disease, peripheral vascular disease, thrombocytopenia, diabetes mellitus with neuropathy. Discussed with the patient, discussed with Internal Medicine. We will follow. MD CATRACHO Huynh/MODL /[id number]
[2019-02-28] MEDS: METRONIDAZOLE 500MG/NS 100ML 100 ML IV SCH ×2 (03:45→10:00)
[2019-02-28] MEDS: VANCOMYCIN 250MG/5ML ORAL SOLN PO SCH ×3 (03:45→14:35)
[2019-02-28] MEDS: LEVOTHYROXINE SODIUM 100 MCG TAB PO SCH (05:38)
[2019-02-28 05:50] VITALS: BP 111/52
[2019-02-28 06:35] LABS: BASOPHILS % 0.2 % (0.0-1.0); EOSINOPHILS # (AUTO) 0.1 (0.0-0.4); EOSINOPHILS % 0.4 % (0.0-6.0); HEMATOCRIT 36.5 % (34.2-44.1); HEMOGLOBIN 12.1 g/dL (12.0-16.0); LYMPHOCYTES % 5.6 % (18.0-39.1); MEAN CORPUSCULAR HEMOGLOBIN 30.3 pg (28-32); MEAN CORPUSCULAR HGB CONC 33.2 g/dL (31-35); MEAN CORPUSCULAR VOLUME 91.5 fL (81-99); MONOCYTES % 5.8 % (4.4-11.3); NEUTROPHILS # (AUTO) 14.9 (2.1-6.9); NEUTROPHILS % 87.5 % (38.7-80.0); PLATELET COUNT 122 x10e3/uL (140-360); RED BLOOD COUNT 3.99 x10e6/uL (3.6-5.1); RED CELL DISTRIBUTION WIDTH 17.2 % (11.7-14.4)
[2019-02-28 06:53] LABS: ALBUMIN 2.5 g/dL (3.5-5.0); ALBUMIN/GLOBULIN RATIO 0.8 (0.8-2.0); ANION GAP 17.8 mmol/L (8-16); CALCIUM 8.1 mg/dL (8.4-10.2); CREATININE, SERUM 5.64 mg/dL (0.57-1.11); POTASSIUM 3.8 mmol/L (3.5-5.1)
--- NOTE | 2019-02-28 07:00 | NUR ---
RCD PT AT BED PT IS ALERT AND ORIENTED PT RESTING ON BED IV PATENT BY SALINE FLUSH BED LOW AND LOCKED CALL LIGHT IN REACH
[2019-02-28] MEDS ORDERED: DEXTROSE 50% SYRINGE 50 ML IV ONE ×2 (07:09→07:30)
--- NOTE | 2019-02-28 07:10 | NUR ---
BG 42, orders from [facility] to give amp of dextrose 50, will recheck bg in 15 min.
[2019-02-28] MEDS: PANTOPRAZOLE SOD 40 MG TABEC PO SCH (07:30)
[2019-02-28] MEDS ORDERED: CHOLESTYRAMINE 4 GM PACKET PO PRN (07:30)
[2019-02-28] MEDS ORDERED: DEXTROSE 50% SYRINGE 50 ML IV PRN (07:30)
[2019-02-28] MEDS: TRAMADOL HCL 50 MG TAB PO PRN ×2 (08:00→14:18)
[2019-02-28 08:29] VITALS: BP 114/51
[2019-02-28 08:32] VITALS: BP 114/51
[2019-02-28] MEDS: DOCUSATE SODIUM 100 MG CAP PO SCH (09:00)
[2019-02-28] MEDS: LACTOBACILLUS ACIDOPHILUS CAPSULE PO SCH ×2 (09:00→17:00)
[2019-02-28] MEDS: CLOPIDOGREL BISULFATE 75 MG TAB PO SCH (09:00)
[2019-02-28] MEDS ORDERED: SODIUM CHLORIDE 0.9% 1000ML 0 ML ONE (09:01)
--- NOTE | 2019-02-28 09:44 | NUR ---
SPOKE WITH PT ABOUT SNF ORDER SHE WANTS ME TO CALL HER SISTER ULYSSES, CALLED HER AND SHE STATES SHE DOES NOT WANT HER TO RETURN TO [facility], GAVE OPTIONS IN NETWORK SHE CHOSE [facility]. SIGNED CHOICE AND FILED IN CHART, COMPLETED PASRR AND RTF AND PUT WITH PACKET FOR TRANSFER COMPLETION AND EDUCATED ON IMM SIGNED AND PLACED IN CHART. NOTIFIED REP TO COME GET PACKET.
--- NOTE | 2019-02-28 10:50 | NUR ---
PAGED DR COVARRUBIAS TO NOTIFY THE CRITICAL LAB MRSA IN SNARES
--- NOTE | 2019-02-28 11:15 | Progress Note ---
DATE: SUBJECTIVE: The patient complains of some discomfort in her back. She has some mild cough. She has no fever. She is not complaining of chest pain. She still has some diarrhea. PHYSICAL EXAMINATION: VITAL SIGNS: Stable. HEENT: Shows no facial swelling or erythema. CARDIAC: Reveals regular rate and rhythm with normal S1, S2. There are no murmurs or rubs heard. LUNGS: Auscultation of lungs reveals clear breath sounds bilaterally. There is no wheezing. ABDOMEN: Soft, nontender. There is no rebound or guarding. EXTREMITIES: Show no leg edema or calf tenderness. There is no cyanosis or clubbing. LABORATORY DATA: White blood cell count is 17 and hemoglobin is 12.1. The platelet count is 122. BUN to creatinine ratio is 33 to 5.6. Sodium is 135, and carbon dioxide is 20. IMPRESSION: 1. Recurrent Clostridium difficile colitis with sepsis, present on admission. 2. Thrombocytopenia. 3. Lower lobe infiltrates in the lung rush of unclear significance. 4. End-stage renal disease. 5. Diabetes. 6. Hypertension. PLAN: 1. Continue oral vancomycin. 2. The patient will need to continue the oral vancomycin as an outpatient. 3. Continue dialysis. 4. Continue to monitor blood counts. MD MATHEW Yeung/BEHZAD /[id number]
[2019-02-28 11:18] VITALS: BP 114/56
[2019-02-28] MEDS ORDERED: SODIUM CHLORIDE 0.9% 1000ML 2,000 ML IV PRN (11:45)
[2019-02-28] MEDS ORDERED: HEPARIN SOD (PORCINE) 1000 UNIT/ML SDV IV PRN (11:45)
--- NOTE | 2019-02-28 11:50 | Consultation ---
DATE OF CONSULTATION: 02/28/2019 REASON FOR CONSULTATION: Right foot wound. HISTORY OF PRESENTING ILLNESS: This is a 68-year-old female with past medical history of type 2 diabetes, peripheral vascular disease, and end-stage renal disease, who is well known to the Podiatry Service through previous admissions on 11/09/2018. At that time, the patient was refusing an amputation to the right lower extremity, so the decision was made to proceed with local wound care and intravenous antibiotics. The patient was admitted for C. difficile colitis, end-stage renal disease, leukocytosis, and pneumonia. The patient currently relates to pain to the right lower extremity and relates that dressing changes have been done over the past several months. She has a history of ueygf-prz-ooqc amputation to the left lower extremity and had a history of a peripheral angiography done approximately 3 months ago. The patient is seen at the bedside chair this morning. She relates to moderate abdominal pain and mild shortness of breath. Denies nausea or vomiting. PAST MEDICAL HISTORY: Type 2 diabetes, peripheral neuropathy, peripheral vascular disease, hypertension, hyperlipidemia, and end-stage renal disease. ALLERGIES: TO PENICILLIN. FAMILY HISTORY: Type 2 diabetes. PAST SURGICAL HISTORY: Left zpidh-pxe-sdqi amputation, angiogram, right lower extremity with a [employer] peripheral arteries. SOCIAL HISTORY: The patient denies smoking, drinking, or any illicit drug usage. REVIEW OF SYSTEMS: The patient relates to abdominal pain and shortness of breath, but currently denies fever, chills, or chest pain. PHYSICAL EXAMINATION: GENERAL: The patient is alert and oriented x3, in no apparent distress. VITAL SIGNS: Today, temperature 97.5, heart rate 60, respiratory rate 16, blood pressure 145/67, and pulse ox 99% on room air. PROBLEM FOCUSED LOWER EXTREMITY PHYSICAL EXAM: VASCULAR: Dorsalis pedis and posterior tibial pulses are not palpable. Capillary refill time is delayed to all digits. Foot is cool, cyanotic distal to the ankle joint. Gangrenous changes are noted to the patient's right 5th digit and early gangrenous changes are noted to the entire forefoot. NEUROLOGICAL: Sensation is diminished to light touch bilateral. MUSCULOSKELETAL: Pain on palpation to the distal right forefoot. Left avmqw-udc-gsac amputation. DERMATOLOGICAL: Multiple deep ulcerations are noted to the patient's right lower extremity at the level of the 4th interspace and the medial aspect of the 1st metatarsophalangeal joint. The wounds are dry and necrotic. There is less than 2 cm of periwound erythema, edema, and warmth, but diffuse mottling and ischemia is noted. LABORATORY DATA: White blood cell count is 17.04, trending down from 29.7, hemoglobin 12.1, hematocrit 36.5, and platelet count is 122. Sodium 135, potassium 3.8, chloride 101, CO2 20, BUN 33, creatinine 5.64, and glucose is 102. Procalcitonin 1.19. ASSESSMENT: 1. Right forefoot gangrene. 2. Peripheral vascular disease. 3. Type 2 diabetes, peripheral neuropathy. 4. End-stage renal disease. 5. Clostridium difficile colitis with sepsis. 6. Pneumonia. PLAN: The patient was seen and evaluated. Discussed condition and treatment options with the patient in detail. Wounds were redressed utilizing a Betadine wet-to-dry with 4x4s, Kerlix, and tape. Discussed with the patient due to poor circulation, there is no foot amputation that would benefit the patient at this time due to loss of circulation. Discussed with the patient she would likely require more proximal amputation. The patient continues to refuse any amputation at this point. We will recommend continued wound care and IV antibiotics to the right lower extremity, but discussed with the patient that this will likely continue to worsen, which will require wzoif-zcq-btat amputation in the future. The patient appears to be understanding. Discussed the case with the primary team. The Podiatry Service will continue to monitor as an inpatient. YEVGENIY Dumont/BEHZAD /[id number]
--- NOTE | 2019-02-28 13:10 | NUR ---
NURSING HOME FACILITY DISCHARGE INFORMATION PATIENT HAS BEEN ACCEPTED TO: NAME:JERRY CLIFTON ADDRESS:[id number] ACCEPTING MD:BO ROOM: [id number] -[facility] NURSE CALL REPORT TO: [phone] IMM SIGNED AND OBTAINED (if applicable): RUDI THE FOLLOWING DOCUMENTS MUST ACCOMPANY PATIENT FOR TRANSFER: COPIED CHART: PACKET
--- NOTE | 2019-02-28 13:52 | NUR ---
DIALYSIS DONE AND REMOVED 1 LTR
--- NOTE | 2019-02-28 14:50 | NUR ---
PT GETTING IV FLAGYL NOTIFIED TRISHA ASIF GOT THE ORDER TO CHANGE PO
--- NOTE | 2019-02-28 14:58 | NUR ---
REPORT GIVEN TO MIC PINO
[2019-02-28 15:38] VITALS: BP 112/52
[2019-02-28] MEDS ORDERED: FAMOTIDINE 20 MG TAB PO SCH (16:30)
[2019-02-28] MEDS ORDERED: MUPIROCIN 2% OINT 22 GM TUBE TOP SCH (17:00)
--- NOTE | 2019-02-28 17:25 | NUR ---
PT DISCHARGED TO [facility] IN SAFE CONDITION
[2019-02-28] MEDS ORDERED: METRONIDAZOLE 500 MG TAB PO SCH (18:00)
--- NOTE | 2019-03-01 11:58 | Discharge Summary ---
ADMISSION DIAGNOSES: C. 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 DISCHARGE DIAGNOSES: C. 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 HISTORY: Hypertension; end-stage renal disease; GERD; C. diff colitis; hypothyroidism; hyperlipidemia; chronic systolic CHF; type 2 diabetes; severe PAD; non STEMI; severe multivessel CAD, on DAPT; anemia of end-stage renal disease; chronic right foot wound; necrosis. SURGICAL HISTORY: Thyroidectomy, left leg MEGHANA, tubal ligation. FAMILY HISTORY: The patient's mom, sister, and brother has diabetes. SOCIAL HISTORY: The patient admits to tobacco use. HOSPITAL COURSE: A 68-year-old female admits with complaints of two days of upper abdominal and left lower quadrant abdominal pain with diarrhea. She was recently treated for C. diff colitis, finishing antibiotic three weeks ago. Denies antibiotic use since camping or being out of the country as well as sick contacts. She denies nausea and vomiting. On admission, the patient's white count was 29.27. She was started on Flagyl and vancomycin p.o. as the stool came back positive for C. diff colitis. Blood cultures were negative. CT of the abdomen and pelvis showed mild wall thickening of the featureless colon, concerning for subacute changes of inflammatory colitis. Chest x-ray showed mild patchy density in the right lung base, may represent atelectasis versus infection. CT of the chest showed findings concerning for bilateral infection/pneumonia. Once the Flagyl and vancomycin p.o. were started, the patient's white count trended down. She has been afebrile. Her nasal swab came back positive for MRSA. She was started on Bactroban b.i.d. x5 days. She has a chronic right foot wound and necrosis that is continuing to worsen, but even after consulting Podiatry and Cardiology, the patient continues to refuse any intervention despite the risks associated with doing so. She will [facility] to [facility]. She will continue the vancomycin p.o. for at least 30 days until followed up with Infectious Disease. The patient understands discharge instructions and agrees to plan. The patient was also started on lactobacillus. Vital signs stable. The patient is afebrile. Dictated by Cyndee Abbott NP Bhanu Mary MD COLLETTE/MODL /[id number]
[2019-03-12] MEDS ORDERED: PEPTO-BISM262 MG/15 PO (16:06)
[2019-03-12] MEDS ORDERED: QUESTRAN PACKET4 GM PO (16:06)
[2019-03-12] MEDS ORDERED: ASCORBIC ACID500 M4 PO (16:06)
[2019-03-12] MEDS ORDERED: MULTI-VITAMIN1 EACH PO (16:06)
[2019-03-12] MEDS ORDERED: AMBIEN5 MG PO (16:06)
[2019-03-12] MEDS ORDERED: HYDRALAZINE HCL10 MG PO (16:06)
[2019-03-12] MEDS ORDERED: ULTRAM 50MG50 MG PO (16:06)
[2019-03-12] MEDS ORDERED: FAMOTIDINE20 MG PO (16:06)
[2019-03-15] MEDS ORDERED: ONDANSETRON4 MG/2 M1 IV (17:32)
[2019-03-15] MEDS ORDERED: Morphine Sulfate Inj IV (17:32)
== END 2019-02-28 17:31 | DRG 871 ==
LOC: ER 18:46 → ERHOLD 02-26 01:03 → MED/SURG2 02-26 18:18
PROVIDERS: ADMIT Internal Medicine; ATTEND Internal Medicine
PROC: 5A1D70Z Performance of Urinary Filtration, Intermittent, Less than 6 Hours Per Day (ICD-10-PCS; principal; 2019-02-26)
DX: A41.89 Other specified sepsis (principal); N18.6 End stage renal disease; I13.2 Hypertensive heart and chronic kidney disease with heart failure and with stage 5 chronic kidney disease, or end stage renal disease; I50.22 Chronic systolic (congestive) heart failure; E11.52 Type 2 diabetes mellitus with diabetic peripheral angiopathy with gangrene; I96 Gangrene, not elsewhere classified; L97.518 Non-pressure chronic ulcer of other part of right foot with other specified severity; A04.71 Enterocolitis due to Clostridium difficile, recurrent; E11.22 Type 2 diabetes mellitus with diabetic chronic kidney disease; Z99.2 Dependence on renal dialysis; Z79.4 Long term (current) use of insulin; I25.2 Old myocardial infarction; E03.9 Hypothyroidism, unspecified; I71.4 Abdominal aortic aneurysm, without rupture; E11.51 Type 2 diabetes mellitus with diabetic peripheral angiopathy without gangrene; K21.9 Gastro-esophageal reflux disease without esophagitis; Z22.322 Carrier or suspected carrier of Methicillin resistant Staphylococcus aureus; I25.10 Atherosclerotic heart disease of native coronary artery without angina pectoris; D63.1 Anemia in chronic kidney disease; E11.621 Type 2 diabetes mellitus with foot ulcer; R74.0 Nonspecific elevation of levels of transaminase and lactic acid dehydrogenase [LDH]; Z53.29 Procedure and treatment not carried out because of patient's decision for other reasons; D69.6 Thrombocytopenia, unspecified; E87.6 Hypokalemia; Z95.5 Presence of coronary angioplasty implant and graft; Z95.820 Peripheral vascular angioplasty status with implants and grafts; Z87.891 Personal history of nicotine dependence
CPT/HCPCS: 36415; 71045; 71046; 71250; 74176; 80053; 82150; 82948; 83690; 83735; 84100; 84145; 85025; 86704; 86706; 87040; 87081; 87350; 87400; 87493; 90962; 97139; J1644; J2405; J7030; J7050; J7799